=== PATIENT | female | born 1995 | race Two or more races ===

== ENCOUNTER 2021-02-25 15:28 | Outpatient (REF) | payer OTHER, SELFPAY ==
[2021-03-02 20:21] LABS: HPV mRNA E6/E7 Detected (Not Detected)
== END 2021-02-25 15:29 | disposition home or self-care (01) ==
LOC: HO.LAB 15:28
PROVIDERS: Visit Provider Internal Medicine
DX: R87.619 Unspecified abnormal cytological findings in specimens from cervix uteri (principal); Z11.51 Encounter for screening for human papillomavirus (HPV)
CPT/HCPCS: 87624; 88142

== ENCOUNTER 2021-02-27 07:01 | Outpatient (REF) | payer OTHER, SELFPAY ==
[2021-02-27 11:27] LABS: Glucose Urine UA NEG (NEG); Leukocyte Esterase Urine NEG (NEG); Nitrite Urine NEG (NEG); Urine Blood NEG (NEG); Urine Ketones NEG (NEG); Urine Protein NEG (NEG-TRACE)
[2021-02-27 11:29] LABS: Hematocrit 40.2 % (37-47); Hemoglobin 13.2 g/dl (12.0-16.0); Mean Corpuscular HGB Conc 32.8 g/dl (31.0-35.0); Mean Corpuscular Volume 88.4 fL (80-98); Mean Platelet Volume 11.3 fL (9.4-12.3); Platelet Count 198 X10*3/uL (160-400); Red Blood Count 4.55 X10*6/uL (4.20-5.50); Red Cell Distribution Width 13.1 % (11.0-16.0)
[2021-02-27 11:31] LABS: Appearance Urine CLOUDY; Color Urine YELLOW
[2021-02-27 11:42] LABS: Alanine Aminotransferase 20 U/L (0-31); Albumin Level 4.5 g/dL (3.5-5.0); Alkaline Phosphatase 89 U/L (39-117); Anion Gap 12 (12-20); Aspartate Amino Transferase 20 U/L (5-31); Bilirubin Total 0.6 mg/dL (0.0-1.0); Blood Urea Nitrogen 14 mg/dL (9-16); Calcium 9.2 mg/dL (8.4-10.2); Carbon Dioxide 23 mmol/L (22-29); Chloride 105 mmol/L (96-108); Cholesterol 163 mg/dL; Estimated Glomerular Filt Rate > 60; Glucose Fasting 87 mg/dL (60-99); HDL Cholesterol 65 mg/dL; LDL Cholesterol Calculated 90 mg/dl; Sodium 136 mmol/L (135-145); Total Protein 7.6 g/dL (6.5-8.0); Triglycerides 42 mg/dL
[2021-02-27 11:44] LABS: Amorphous Sediment Urine 4+ /LPF; RBC Urine 0 /HPF (0); Squamous Epithelial Cell Urine 3+ /LPF; WBC Urine 0 /HPF (0-4)
[2021-02-27 12:02] LABS: Syphilis Screen Nonreactive (Nonreactive)
[2021-02-27 12:03] LABS: HIV AB/AG Nonreactive (Nonreactive); HIV Num 1 0.08 S/CO (0.00-0.99)
[2021-02-27 12:04] LABS: TSH reflex Free T4 0.82 uIU/mL (0.32-4.0)
[2021-02-27 12:45] LABS: CT PCR NOT DETECTED (Not Detect.); NG PCR NOT DETECTED (Not Detect.)
== END 2021-02-27 07:02 | disposition home or self-care (01) ==
LOC: HO.HMGCLDS 07:01
PROVIDERS: PCP Internal Medicine; Visit Provider Internal Medicine
DX: Z00.00 Encounter for general adult medical examination without abnormal findings (principal); E03.9 Hypothyroidism, unspecified
CPT/HCPCS: 80053; 80061; 81001; 84443; 85027; 86780; 87389; 87491; 87591

== ENCOUNTER 2022-05-26 09:16 | Outpatient (REF) | payer OTHER, SELFPAY ==
[2022-05-26 11:30] LABS: Hematocrit 39.5 % (37.0-47.0); Hemoglobin 13.1 g/dl (12.0-16.0); Mean Corpuscular HGB Conc 33.2 g/dl (31.0-35.0); Mean Corpuscular Hemoglobin 29.8 pg (27.0-33.0); Mean Corpuscular Volume 89.8 fL (80.0-98.0); Mean Platelet Volume 10.9 fL (9.4-12.3); Platelet Count 243 X10*3/uL (160-400); Red Cell Distribution Width 12.5 % (11.0-16.0); White Blood Count 5.1 X10*3/uL (4.8-10.8)
[2022-05-26 11:43] LABS: Alanine Aminotransferase 12 U/L (0-31); Albumin Level 4.3 g/dL (3.5-5.0); Alkaline Phosphatase 83 U/L (39-117); Anion Gap 12 (12-20); Aspartate Amino Transferase 14 U/L (5-31); Bilirubin Total 0.5 mg/dL (0.0-1.0); Blood Urea Nitrogen 11 mg/dL (9-16); Calcium 9.1 mg/dL (8.4-10.2); Carbon Dioxide 23 mmol/L (22-29); Chloride 106 mmol/L (96-108); Cholesterol 165 mg/dL; Estimated Glomerular Filt Rate > 60; Glucose Fasting 92 mg/dL (60-99); HDL Cholesterol 70 mg/dL; LDL Cholesterol Calculated 86 mg/dl; Sodium 137 mmol/L (135-145); Total Protein 7.3 g/dL (6.5-8.0); Triglycerides 47 mg/dL
[2022-05-26 12:07] LABS: TSH reflex Free T4 1.44 uIU/mL (0.32-4.0)
== END 2022-05-26 09:17 | disposition home or self-care (01) ==
LOC: HO.HMGCLDS 09:16
PROVIDERS: PCP Internal Medicine; Visit Provider Internal Medicine
DX: Z00.00 Encounter for general adult medical examination without abnormal findings (principal); E03.9 Hypothyroidism, unspecified
CPT/HCPCS: 36415; 80053; 80061; 84443; 85027

== ENCOUNTER 2022-07-16 10:06 | Outpatient (REF) | payer OTHER, SELFPAY ==
[2022-07-22 13:22] LABS: HPV mRNA E6/E7 Detected (Not Detected)
== END 2022-07-16 10:07 | disposition home or self-care (01) ==
LOC: HO.LNP 10:06
PROVIDERS: Visit Provider Internal Medicine
DX: Z01.419 Encounter for gynecological examination (general) (routine) without abnormal findings (principal); Z11.51 Encounter for screening for human papillomavirus (HPV)
CPT/HCPCS: 87624; 88142

== ENCOUNTER 2022-07-16 10:06 | Outpatient (REF) | payer OTHER, SELFPAY ==
[2022-07-17 14:21] LABS: BV Int Neg Control Negative (Negative); BV Int Pos Control Positive (Positive)
== END 2022-07-16 10:07 | disposition home or self-care (01) ==
LOC: HO.LAB 10:06
PROVIDERS: Visit Provider Internal Medicine
DX: Z00.00 Encounter for general adult medical examination without abnormal findings (principal)
CPT/HCPCS: 87480; 87510; 87660

== ENCOUNTER 2023-07-20 07:56 | Outpatient (AMB) | payer OTHER, SELFPAY ==
[2023-07-20 08:10] VITALS: BP 100/64; PULSE 88; O2SAT 97; BMI 22.0
--- NOTE | 2023-07-20 08:10 | MHC.PC.OV ---
Vital Signs 07/20/23 08:10 Height 5 ft 3 in Weight 124 lb BMI 22.0 BP 100/64 Blood Pressure Location Lt brachial Position Sitting Pulse 88 Pulse Source Pulse Oximeter Pulse Oximetry (%) 97 Oxygen Delivery Method Room Air Intake Visit Reasons: PE Intake Note: Pt is here today for PE. Allergies No Known Allergies Allergy (Verified 07/20/23 08:12) Medication List - Last Reconciled 07/20/23 by Clarissa Grider MD levothyroxine 100 mcg PO DAILY metronidazole 0.75%(37.5mg/5gram) 1 appful vaginal BEDTIME 5 days Tobacco use date assessed: 07/20/23 Dental Screening Dental Screen Date: 07/20/23 Did you have a dental visit in the last 12 months?: Yes Did you have a dental problem in the last 6 months where you did not have access to dental care?: No Was dental information given to patient?: Patient has dentist HPI PE HPI Details Pt presents for PE. [facility] Medical History (Updated 07/20/23 @ 08:30 by Clarissa Grider MD) Depo-Provera contraceptive status Abnormal Pap smear of cervix Annual physical exam Hypothyroid Family History (Updated 07/20/23 @ 08:13 by Joslyn Stallworth COUNTS INCLUDE 234 BEDS AT THE [facility]) Father No problems noted. 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 1. Little interest or pleasure in doing things: more than half the days 2. Feeling down, depressed, or hopeless: more than half the days 3. Trouble falling or staying asleep, or sleeping too much: nearly every day 4. Feeling tired or having little energy: more than half the days 5. Poor appetite or overeating: not at all 6. Feeling bad about yourself - or that you are a failure or have let yourself or your family down: not at all 7. Trouble concentrating on things, such as reading the newspaper or watching television: not at all 8. Moving or speaking so slowly that other people could have noticed. Or the opposite - being so fidgety or restless that you have been moving around a lot more than usual: not at all 9. Thoughts that you would be better off or of hurting yourself in some way: not at all Total score: 9 Depression Screening Interpretation: Negative Depression Screening Done: Yes Source: Developed by Drs. Santosh Pyle, Mary Jo Escobar, Julian Centeno and colleagues, with an educational to from [employer]. Thrive Questionnaire Date Thrive assessed: 07/20/23 I am a: Patient What is your living situation today?: I have a steady place to live Within the past 12 months, did the food you bought not last and you didn't have the money to get more?: Never true Within the past 12 months, did you worry whether your food would run out before you got money to buy more?: Never true Do you have trouble paying for medicines?: No Do you have trouble getting transportation to medical appointments?: No Do you have trouble paying your heating and electricity bill?: No Do you have trouble taking care of your child, family member or friend?: No Do you have trouble with day-to-day activities such as bathing, preparing meals, shopping, managing finances, etc.?: No Are you currently unemployed and looking for a job?: No Are you interested in more education?: No Please select the resources that you would like help with: None Currently or been in a relationship where the following occur: no concerns reported AUDIT C Alcohol Use Questionnaire (AUDIT-C) 1. How often do you have a drink containing alcohol?: Never 3. How often do you have six or more drinks on one occasion?: Never Total Score: 0 MELE-7 AMB Questionnaire MELE-7 Date MELE - 7 assessed: 07/20/23 Feeling nervous, anxious, or on edge: 2 = More than half the days Not being able to stop or control worryin = More than half the days Worrying too much about different things: 2 = More than half the days Trouble relaxin = More than half the days Being so restless that it is hard to sit still: 2 = More than half the days Becoming easily annoyed or irritable: 2 = More than half the days Feeling afraid as if something awful might happen: 0 = Not at all Total MELE-7 score (0-4 normal; 5-9 mild; 10-14 moderate; 15-21 severe): 12 Source: Developed by Drs. Santosh Pyle, Mary Jo Escobar, Julian Centeno and colleagues, with an educational to from [employer]. Review of Systems Const All systems reviewed & are unremarkable except as noted in HPI and below Reports no additional complaints Eyes Reports no additional complaints ENT Reports no additional complaints Card Reports no additional complaints Resp Reports no additional complaints GI Reports no additional complaints Reports no additional complaints Physical exam (Primary Care) Vital Signs: Last Vital Signs Pulse 88 07/20/23 08:10 BP 100/64 07/20/23 08:10 Pulse Ox 97 07/20/23 08:10 Oxygen Delivery Method Room Air 07/20/23 08:10 BMI result Body Mass Index 22.0 Tobacco/Smoking Status: Tobacco use Status Tobacco use date assessed 07/20/23 07/20/23 08:15 Patient Tobacco Use Status Never used Tobacco 07/20/23 08:15 e-Cigarette/Vaping Use Never Used 07/20/23 08:15 PHQ-9: PHQ-9 Score PHQ-9: Total score 9 07/20/23 08:17 Depression Screening Interpretation: Negative Thrive Assessment: Date of Thrive Assessment Date Thrive assessed 07/20/23 07/20/23 08:17 Currently or been in a relationship where the following occur: no concerns reported Const General: no acute distress HENMT Head: Yes normal to inspection Ears: hearing grossly normal bilaterally Face and sinus: Yes normal facial exam Eyes General: appearance normal, both eyes and all related structures Neck Neck: Yes no lymphadenopathy and Yes supple Resp Effort & Inspection: normal respiratory effort Auscultation: clear to auscultation bilaterally Cardio Rhythm: regular rhythm Heart sounds: S1 normal heart sound present and S2 normal heart sound present GI Inspection: Yes normal to inspection Palpation (GI): Soft to palpation Percussion: Yes normal to percussion Auscultation: normal bowel sounds Assessment and Plan Assessment & Plan (1) Anxiety and depression: Code(s): F41.9 - Anxiety disorder, unspecified; F32.A - Depression, unspecified Plan: Pt will schedule psychotherapy. Stress management discussed. She is not interested in meds (2) Abnormal Pap smear of cervix: Comment: ASCUS 06/2019, pap negative but HPV + 03/06, Code(s): R87.619 - Unspecified abnormal cytological findings in specimens from cervix uteri Plan: refer to drier take off tender EVONNE (3) Annual physical exam: Code(s): Z00.00 - Encounter for general adult medical examination without abnormal findings Plan: WELL-BALANCED DIET REGULAR PHYSICAL ACTIVITY DISCUSSED WITH THE PATIENT. SHE WILL RETURN FOR FASTING BLOOD WORK INCLUDING TSH Orders: Orders Comprehensive Parker. Panel Fast Today Z00.00 - Encounter for general adult medical examination without abnormal findings Lipid Panel Today Z00.00 - Encounter for general adult medical examination without abnormal findings Complete Blood Count Auto Diff Today Z00.00 - Encounter for general adult medical examination without abnormal findings TSH reflex Free T4 Today Z00.00 - Encounter for general adult medical examination without abnormal findings Referrals Counseling Referral F32.A - Depression, unspecified, F41.9 - Anxiety disorder, unspecified [place] Referral R87.619 - Unspecified abnormal cytological findings in specimens from cervix uteri Medications: Refilled levothyroxine 100 mcg PO DAILY 90 tabs 3RF Coding Level of Care Code Est Pt Prev Care 18-39y(46782) Diagnoses Anxiety and depression F41.9; F32.A Abnormal Pap smear of cervix R87.619 Annual physical exam Z00.00
== END 2023-07-20 09:47 | disposition home or self-care (01) ==
PROVIDERS: Visit Provider Internal Medicine
DX: F41.9 Anxiety disorder, unspecified (principal); F32.A Depression, unspecified; R87.619 Unspecified abnormal cytological findings in specimens from cervix uteri; Z00.00 Encounter for general adult medical examination without abnormal findings
CPT/HCPCS: 99395

== ENCOUNTER 2023-07-20 08:41 | Outpatient (REF) | payer OTHER, SELFPAY ==
[2023-07-20 11:21] LABS: MANUAL DIFF FLAG NO
[2023-07-20 11:40] LABS: Basophils Percent Auto 0.8 % (0-2); Eosinophils Absolute Auto 0.2 X10*3/uL (0.0-0.4); Eosinophils Percent Auto 3.6 % (0-4); Hematocrit 39.2 % (37.0-47.0); Hemoglobin 12.8 g/dl (12.0-16.0); Imm Gran Abs Auto 0.01 X10*3/uL (0.00-0.03); Imm Gran Pct Auto 0.2 % (0.0-0.4); Lymphocytes Absolute Auto 1.8 X10*3/uL (1.2-4.9); Lymphocytes Percent Auto 36.3 % (20-40); Mean Corpuscular HGB Conc 32.7 g/dl (31.0-35.0); Mean Corpuscular Volume 88.7 fL (80.0-98.0); Mean Platelet Volume 10.9 fL (9.4-12.3); Monocytes Absolute Auto 0.5 X10*3/uL (0.1-1.2); Monocytes Percent Auto 9.4 % (2-11); Neutrophils Absolute Auto 2.5 x10*3/uL (2.0-8.3); Neutrophils Percent Auto 49.7 % (45-73); Platelet Count 226 X10*3/uL (160-400); Red Blood Count 4.42 X10*6/uL (4.20-5.50); Red Cell Distribution Width 12.6 % (11.0-16.0)
[2023-07-20 12:06] LABS: Alanine Aminotransferase 13 U/L (0-31); Albumin Level 4.3 g/dL (3.5-5.0); Alkaline Phosphatase 66 U/L (39-117); Anion Gap 12 (12-20); Aspartate Amino Transferase 17 U/L (5-31); Bilirubin Total 0.3 mg/dL (0.0-1.0); Blood Urea Nitrogen 12 mg/dL (9-16); Calcium 9.1 mg/dL (8.4-10.2); Carbon Dioxide 24 mmol/L (22-29); Chloride 108 mmol/L (96-108); Cholesterol 163 mg/dL (<200); Estimated Glomerular Filt Rate > 60; Glucose Fasting 87 mg/dL (60-99); HDL Cholesterol 62 mg/dL (>40); LDL Cholesterol Calculated 92 mg/dL (<100); Potassium 3.9 mmol/L (3.3-5.1); Sodium 140 mmol/L (135-145); Total Protein 7.5 g/dL (6.5-8.0); Triglycerides 45 mg/dL (<150)
[2023-07-20 12:10] LABS: TSH reflex Free T4 2.58 uIU/mL (0.32-4.0)
== END 2023-07-20 08:42 | disposition home or self-care (01) ==
LOC: HO.HMGCLDS 08:41
PROVIDERS: PCP Internal Medicine; Visit Provider Internal Medicine
DX: Z00.00 Encounter for general adult medical examination without abnormal findings (principal)
CPT/HCPCS: 36415; 80053; 80061; 84443; 85025

== ENCOUNTER 2023-08-25 12:34 | Outpatient (AMB) | payer OTHER, SELFPAY ==
[2023-08-25 12:46] VITALS: BP 104/66; PULSE 89; O2SAT 95; BMI 22.3
--- NOTE | 2023-08-25 12:46 | MHC.PC.OV ---
Vital Signs 08/25/23 12:46 Height 5 ft 3 in Weight 126 lb BMI 22.3 BP 104/66 Blood Pressure Location Lt brachial Position Sitting Pulse 89 Pulse Source Pulse Oximeter Pulse Oximetry (%) 95 Oxygen Delivery Method Room Air Intake Visit Reasons: Motion sickness Intake Note: Pt is here today for a a sick visit. Pt c/o motion sickness feeling last weekend. Pt states that she was feeling dizzy out of balance. Allergies No Known Allergies Allergy (Verified 08/25/23 12:49) Tobacco use date assessed: 07/20/23 HPI Motion sickness HPI Details Pt had an episode of positional vertigo, nausea, vomiting, diarrhea for 3 days a few days ago and recovered completely. [facility] Medical History (Updated 08/25/23 @ 15:28 by Clarissa Grider MD) Depo-Provera contraceptive status Abnormal Pap smear of cervix Annual physical exam Hypothyroid Family History (Updated 07/20/23 @ 08:13 by Joslyn Stallworth [facility]) Father No problems noted. 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 Santosh Pyle, Mary Jo Escobar, Julian Centeno and colleagues, with an educational to from [employer]. Review of Systems Const All systems reviewed & are unremarkable except as noted in HPI and below Reports no additional complaints Eyes Reports no additional complaints ENT Reports no additional complaints Card Reports no additional complaints Resp Reports no additional complaints GI Reports no additional complaints Physical exam (Primary Care) Vital Signs: Last Vital Signs Pulse 89 08/25/23 12:46 BP 104/66 08/25/23 12:46 Pulse Ox 95 08/25/23 12:46 Oxygen Delivery Method Room Air 08/25/23 12:46 BMI result Body Mass Index 22.3 Tobacco/Smoking Status: Tobacco use Status Tobacco use date assessed 07/20/23 08/25/23 12:49 Patient Tobacco Use Status Never used Tobacco 08/25/23 12:49 e-Cigarette/Vaping Use Never Used 08/25/23 12:49 Thrive Assessment: Date of Thrive Assessment Date Thrive assessed 07/20/23 08/25/23 12:49 Const General: no acute distress HENMT Head: Yes normal to inspection Ears: hearing grossly normal bilaterally and TM's normal bilaterally General nose exam: Normal external nose present Face and sinus: Yes normal facial exam Mouth: Normal oral and palatal mucosa present Neck Neck: Yes no lymphadenopathy and Yes supple Resp Effort & Inspection: normal respiratory effort Auscultation: clear to auscultation bilaterally Cardio Rhythm: regular rhythm Heart sounds: S1 normal heart sound present and S2 normal heart sound present Assessment and Plan Assessment & Plan (1) Vertigo: Code(s): R42 - Dizziness and giddiness Plan: resolved Orders: Orders Bacterial Vaginosis Panel Today N76.0 - Acute vaginitis Coding Level of Care Code Est Pt Level 3 (20349) Diagnoses Vertigo R42
== END 2023-08-25 14:02 | disposition home or self-care (01) ==
PROVIDERS: PCP Internal Medicine; Visit Provider Internal Medicine
DX: R42 Dizziness and giddiness (principal)
CPT/HCPCS: 99213

== ENCOUNTER 2023-08-25 16:28 | Outpatient (REF) | payer OTHER, SELFPAY ==
[2023-08-26 13:13] LABS: BV Int Neg Control Negative (Negative); BV Int Pos Control Positive (Positive)
== END 2023-08-25 16:29 | disposition home or self-care (01) ==
LOC: HO.LNP 16:28
PROVIDERS: Visit Provider Internal Medicine
DX: N76.0 Acute vaginitis (principal)
CPT/HCPCS: 87480; 87510; 87660

== ENCOUNTER 2023-10-19 12:39 | Outpatient (REF) | payer OTHER, SELFPAY ==
[2023-11-02 02:34] LABS: HPV 16 RNA NOT DETECTED (NOT DETECTED); HPV mRNA E6/E7 rflx Detected (Not Detected)
== END 2023-10-19 12:40 | disposition home or self-care (01) ==
LOC: HO.LNP 12:39
PROVIDERS: PCP Internal Medicine; Visit Provider Obstetrics & Gynecology
DX: R87.619 Unspecified abnormal cytological findings in specimens from cervix uteri (principal); B97.7 Papillomavirus as the cause of diseases classified elsewhere; Z32.02 Encounter for pregnancy test, result negative
CPT/HCPCS: 57454; 81025; 87624; 87625; 88142; 99202

== ENCOUNTER 2023-10-19 12:39 | Outpatient (AMB) | payer OTHER, SELFPAY ==
--- NOTE | 2023-10-19 12:41 | MHC.OFFVIS ---
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 03/06 Pap she was negative/HPV E6/E7 positive, no HPV 16/18 or 45, repeat cervical screening on 08/07 , Pap smear negative/HPV E6/E7 was positive , no HPV 16 18 or 45 done. [facility] Medical History Depo-Provera contraceptive status Abnormal Pap smear of cervix Annual physical exam Hypothyroid Family History Father No problems noted. 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 Alcohol intake: current Alcohol intake frequency: does not drink Patient Tobacco Use Status: Never used Tobacco e-Cigarette/Vaping Use: Never Used Current occupational status: employed Sexual orientation: Straight/Heterosexual Gender identity: Female Cognitive needs: No Hearing needs: No Vision needs: Yes Female Reproductive History Menstrual Duration of menses: 3-5 days Date of last menstrual period: 10/05/23 control method: none Total pregnancies: 0 Date of last pap smear: 07/16/22 (+HPV) History of abnormal pap smear: Yes (03/06 +HPV) Review of Systems Const All systems reviewed & are unremarkable except as noted in HPI and below Physical Exam General: Yes no CVA tenderness External Female Exam: normal external appearance and normal appearance of the urethra Speculum Exam - Vagina: normal appearance of the vagina, normal palpation, no lesions and no masses Speculum Exam - Cervix: normal appearance of the cervix, normal palpation, no lesions, no masses and nontender Bimanual exam- vagina & uterus: normal bimanual exam, normal palpation, uterine size normal, normal palpation, uterine shape normal, No Cervical tenderness present and non-tender Bimanual Exam- Adnexa, other: normal adnexae Back/Spine/Pelvis Back: no CVA tenderness Office Procedures Colposcopy Before the procedure was started discussed with the patient the procedure, alternatives & all the risks associated with the procedure (bleeding, infection, injury to vagina, bladder, vessels, possible need for transfusion with all its risks) then patient signed the consent Pap smear = negative/HPV positive Urine test done in the office was negative Speculum inserted, acetic acid used Colposcopy done Transformation zone seen, acetowhite lesions identified at 4+8+11+12+1 o?clock, cervical biopsies taken from 4+8+11+12+1 o?clock, ECC done afterwards. Vaginoscopy of the upper vagina showed no evidence of any aceto-white lesions Monsel solution used for hemostasis. The patient tolerated well . At the end the patient was instructed to call if temp>100.4, abdominal pain, n/v, bleeding; The patient was given the following instructions: nothing per vagina, no intercourse or bath tub use. All questions answered the patient verbalized understanding. Instructed the patient to make an appointment in 2 weeks for follow-up This note was generated with a voice recognition program. Some errors may have been overlooked during the review of this note. Sometimes these errors may affect the content or meaning of a given sentence. [id number] of cervix including upper vagina with biopsy and ECC Procedure code (CPT) selection complete Assessment & Plan Assessment & Plan (1) HPV in female: Code(s): B97.7 - Papillomavirus as the cause of diseases classified elsewhere Plan: Discussed with the patient the result of her cervical and screening, its significance, risk of progression, persistence, and regression. the false positive/negative rate being a screening test, recommended repeat Pap with reflex HPV in addition to colposcopy, biopsy, endocervical curettage. The patient verbalized understanding and agreed with the plan, all questions answered. Colposcopy done, see procedure note. Orders: Orders AMB Colposcopy Today B97.7 - Papillomavirus as the cause of diseases classified elsewhere Coding Level of Care Code New Pt Level 3 (48835) Procedure Only Diagnoses HPV in female B97.7 CPT Codes Colposcopy - CPT: 95124-Jcbgqjjoy of cervix including upper vagina with biopsy and ECC ([id number])
[2023-10-19 12:42] VITALS: BP 94/58; BMI 22.5
== END 2023-10-19 13:14 | disposition home or self-care (01) ==
LOC: HO.HWS 12:39
PROVIDERS: PCP Internal Medicine; Visit Provider Obstetrics & Gynecology
DX: R87.810 Cervical high risk human papillomavirus (HPV) DNA test positive (principal); Z32.02 Encounter for pregnancy test, result negative
CPT/HCPCS: 57454; 99203

== ENCOUNTER 2023-10-19 13:36 | Outpatient (REF) | payer OTHER, SELFPAY | END 2023-10-19 13:37 | disposition home or self-care (01) | LOC: HO.LAB 13:36 | PROVIDERS: Visit Provider Obstetrics & Gynecology | DX: R87.619 Unspecified abnormal cytological findings in specimens from cervix uteri (principal); B97.7 Papillomavirus as the cause of diseases classified elsewhere; Z32.02 Encounter for pregnancy test, result negative | CPT/HCPCS: 88305; 88341; 88342; 88360 ==

== ENCOUNTER 2023-11-07 10:20 | Outpatient (AMB) | payer OTHER, SELFPAY ==
--- NOTE | 2023-11-07 10:27 | A.OFFVIS_ITS ---
Intake Vital Signs 11/07/23 10:29 Height 5 ft 3 in Weight 125 lb 10.616 oz BMI 22.3 BP 102/60 Intake Visit Reasons: Colpo follow up Allergies No Known Allergies Allergy (Verified 10/19/23 12:42) HPI HPI Comments History of Present Illness Details Presenting post colpo for follow-up. The patient is doing well with no complaints. The pathology showed the following: A. Cervix, 1:00, biopsy: Squamous and endocervical glandular mucosa with inflammation; negative for dysplasia. B. Cervix, 4:00, biopsy: Endocervical glandular mucosa with marked inflammation and minute focus of squamous metaplasia; negative for dysplasia. C. Cervix, 8:00, biopsy: Squamous and endocervical glandular mucosa with inflammation and focal atypical squamous epithelium, suspicious for dysplasia (see comment). D. Cervix, 11:00, biopsy: Endocervical glandular mucosa with inflammation; negative for dysplasia; no squamous component present. E. Cervix, 12:00, biopsy: Endocervical glandular mucosa with inflammation and atypical squamous metaplasia, suspicious for dysplasia (see comment). F. Endocervix, curettage: Endocervical glandular and squamous epithelium; negative for dysplasia. Comment: The atypical epithelium is suspicious for a high-grade/moderate dysplasia and follow-up is necessary. The atypical epithelium is similar to the atypical cells seen in the concurrent Pap test (CY24-24) [facility] Medical History Depo-Provera contraceptive status Abnormal Pap smear of cervix Annual physical exam Hypothyroid Family History Father No problems noted. 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 Alcohol intake: current Alcohol intake frequency: does not drink Patient Tobacco Use Status: Never used Tobacco e-Cigarette/Vaping Use: Never Used Current occupational status: employed Sexual orientation: Straight/Heterosexual Gender identity: Female Cognitive needs: No Hearing needs: No Vision needs: Yes Female Reproductive History Menstrual Date of last menstrual period: 11/01/23 Review of Systems Const All systems reviewed & are unremarkable except as noted in HPI and below Reports as per HPI and Reports no additional complaints GI Reports no additional complaints Reports no additional complaints Physical Exam Vital Signs: Last Vital Signs BP 102/60 11/07/23 10:29 BMI result Body Mass Index 22.3 Assessment & Plan Assessment & Plan (1) MARGARET II (cervical intraepithelial neoplasia II): Code(s): N87.1 - Moderate cervical dysplasia Plan: Discussed with the patient the pathology results of the colposcopy biopsies ( 08:00 o'clock biopsy suspicious for moderate dysplasia-MARGARET 2), negative ECC. Discussed with the patient the sensitivity specificity, positive and negative predictive value in detecting cervical cancer in addition discussed the regression, persistence and progression rates. Addition discussed with the patient the risk of progression to cancer and impact of excision procedure on her future . Per ASCCP guidelines, 2 options of management were discussed with the patient including either observation with HPV based screening and colposcopy biopsy at 6 months and 12 months versus a diagnostic excisional procedures, which is the preferred method of management. The patient is concerned more about the excisional procedure impact on her future than the risk of progression of MARGARET 2 to cancer and she decided to proceed with expectant management. Instructions given to the patient to schedule colposcopy biopsy and co testing in 6 months Coding Level of Care Code Est Pt Level 3 (40655) Diagnoses MARGARET II (cervical intraepithelial neoplasia II) N87.1
[2023-11-07 10:29] VITALS: BP 102/60; BMI 22.3
== END 2023-11-07 10:49 | disposition home or self-care (01) ==
PROVIDERS: PCP Internal Medicine; Visit Provider Obstetrics & Gynecology
DX: N87.1 Moderate cervical dysplasia (principal)
CPT/HCPCS: 99213

== ENCOUNTER → 2023-11-07 10:20 | Outpatient (BNVA) | payer OTHER, SELFPAY | PROVIDERS: PCP Internal Medicine; Visit Provider Obstetrics & Gynecology | DX: N87.1 Moderate cervical dysplasia (principal) | CPT/HCPCS: 99212 ==

== ENCOUNTER 2023-11-15 14:20 | Outpatient (AMB) | payer OTHER, SELFPAY ==
--- NOTE | 2023-11-15 14:27 | MHC.OFFWIV ---
Intake Vital Signs 11/15/23 14:28 Height 5 ft 3 in Weight 132 lb 8 oz BMI 23.5 BP 116/60 Blood Pressure Location Lt brachial Position Sitting Pulse 90 Pulse Source Pulse Oximeter Temp 98.5 F Temp Source Temporal Artery Scan Pulse Oximetry (%) 97 Oxygen Delivery Method Room Air Intake Visit Reasons: EST/sore throat(lobby masked) Patient Tobacco Use Status: Never used Tobacco Allergies No Known Allergies Allergy (Verified 11/15/23 14:39) Medication List - Last Reconciled 11/15/23 by CHUN New levothyroxine 100 mcg PO DAILY HPI HPI Comments History of Present Illness Details Patient is a 28-year-old female in today for a sick visit. She states that she developed upper respiratory symptoms, including cough, sore throat, headache, excessive mucus production, ear fullness for the past 20 days. She has utilized some [id number] medicine with little effect, including Mucinex and DayQuil. Patient states that she feels like when she wakes up she has mucus pooled in the back of her throat, is causing her throat to feel sore and exacerbates her cough. Denies sick contacts or recent travel. Will obtain strep and upper respiratory swab. Patient denies fever, chest pain, shortness a breath, dizziness, numbness, vomiting, diarrhea PFSH Medical History Depo-Provera contraceptive status Abnormal Pap smear of cervix Annual physical exam Hypothyroid Family History Father No problems noted. 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 Alcohol intake: current Alcohol intake frequency: does not drink Patient Tobacco Use Status: Never used Tobacco e-Cigarette/Vaping Use: Never Used Current occupational status: employed Sexual orientation: Straight/Heterosexual Gender identity: Female Cognitive needs: No Hearing needs: No Vision needs: Yes Review of Systems Const All systems reviewed & are unremarkable except as noted in HPI and below Reports chills, Reports fatigue, Denies fever(s) and Reports headache(s) Eyes Denies change in vision ENT Reports otalgia, Reports headache(s), Reports nasal discharge, Reports sinus pressure and Reports sore throat Card Denies chest pain and Denies dyspnea Resp Reports chest congestion, Reports cough and Denies dyspnea GI Denies abdominal pain Neuro Reports headache(s) Endo Reports fatigue Physical Exam Vital Signs: Last Vital Signs Temp 98.5 F 11/15/23 14:28 Pulse 90 11/15/23 14:28 BP 116/60 11/15/23 14:28 Pulse Ox 97 11/15/23 14:28 Oxygen Delivery Method Room Air 11/15/23 14:28 BMI result Body Mass Index 23.5 Const Other: Appearance: Alert.? Oriented X3.? No acute distress.? Head: Normocephalic, atraumatic. Eyes: Pupils equal, round and reactive to light. No photophobia. ? ENT: Pharynx erythema. Turbinate swelling. Right TM intact with effusion. Left TM intact erythema and effusion. Neck: Normal inspection.? Neck supple.?Full ROM. CVS: Normal heart rate and rhythm.? Pulses normal.? Respiratory: No respiratory distress.? Breath sounds normal.? Neuro: Oriented X 3.? No motor deficit.? No sensory deficit. CN 2-12 intact Results AMB Rapid Strep AMB Rapid Strep Negative Last Edit by No White CMA on 11/15/23 14:46 Results Reviewed Results Reviewed: Laboratory Last Values Strep Scn Rapid Clinic Negative 11/15/23 14:46 Will call patient with strep and upper respiratory viral swab results. Assessment & Plan Assessment & Plan (1) Otitis media of left ear: Comment: Will give patient Augmentin and prednisone to be taken as directed. Patient has been educated on signs of worsening symptoms and when to return to the walk-in or when to present to the ED. Code(s): H66.92 - Otitis media, unspecified, left ear Qualifiers: Otitis media type: unspecified Qualified Code(s): H66.92 - Otitis media, unspecified, left ear Plan: Take your medications as prescribed. If you were prescribed antibiotics today, it is important that you take your medication to their entirety, do not skip any doses, do not finish them early. Follow-up with your primary care provider this week. Return to the emergency department with new or worsening symptoms. Such as fevers, chills, chest pain, shortness of breath, nausea, vomiting, dizziness, headache, vision changes, lethargy In case of emergency call 911 Plan Follow-up with PCP. Orders: Orders AMB Rapid Strep Screen 11/15/23 Z13.9 - Encounter for screening, unspecified SARS-CoV2/FLU/RSV 11/15/23 J06.9 - Acute upper respiratory infection, unspecified Medications: New prednisone 20 mg PO BID 10 tabs 0RF benzocaine-menthol 15-2.6 mg (Cepacol Sore Throat (benzocaine-menthol)) 1 lynne mucous membrane Q2-4H PRN 16 ea 0RF pain amoxicillin-pot clavulanate 875-125 mg 1 tab PO Q12H 14 tabs 0RF Coding Level of Care Code Est Pt Level 3 (31801) Diagnoses Left otitis media, unspecified otitis media type H66.92 Otitis media type: unspecified Time Spent (min) 30
[2023-11-15 14:28] VITALS: BP 116/60; PULSE 90; TEMP 36.9; O2SAT 97; BMI 23.5
== END 2023-11-15 16:05 | disposition home or self-care (01) ==
PROVIDERS: PCP Internal Medicine; Visit Provider Nurse Practitioner Primary Care
DX: H66.92 Otitis media, unspecified, left ear (principal)
CPT/HCPCS: 87880; 99213

== ENCOUNTER 2023-11-15 19:02 | Outpatient (REF) | payer OTHER, SELFPAY ==
[2023-11-15 19:54] LABS: Influenza A PCR NEGATIVE (Negative); Influenza B PCR NEGATIVE (Negative); Resp Syncy Virus RNA Qual PCR NEGATIVE (Negative); SARS COV2 PCR INHOUSE NEGATIVE (Negative)
== END 2023-11-15 19:03 | disposition home or self-care (01) ==
LOC: HO.HMGCLNP 19:02
PROVIDERS: Visit Provider Nurse Practitioner Primary Care
DX: J06.9 Acute upper respiratory infection, unspecified (principal); R04.2 Hemoptysis; Z11.52 Encounter for screening for COVID-19
CPT/HCPCS: 0241U

== ENCOUNTER 2024-02-15 12:11 | Outpatient (REF) | payer OTHER, SELFPAY ==
[2024-02-15 13:03] LABS: MANUAL DIFF FLAG NO
[2024-02-15 13:08] LABS: Basophils Absolute Auto 0.1 X10*3/uL (0.0-0.2); Basophils Percent Auto 0.7 % (0-2); Eosinophils Absolute Auto 0.1 X10*3/uL (0.0-0.4); Eosinophils Percent Auto 1.9 % (0-4); Hematocrit 38.3 % (37.0-47.0); Hemoglobin 12.7 g/dl (12.0-16.0); Imm Gran Abs Auto 0.03 X10*3/uL (0.00-0.03); Imm Gran Pct Auto 0.4 % (0.0-0.4); Lymphocytes Absolute Auto 2.2 X10*3/uL (1.2-4.9); Lymphocytes Percent Auto 29.7 % (20-40); Mean Corpuscular HGB Conc 33.2 g/dl (31.0-35.0); Mean Corpuscular Hemoglobin 28.9 pg (27.0-33.0); Mean Platelet Volume 11.4 fL (9.4-12.3); Monocytes Absolute Auto 0.8 X10*3/uL (0.1-1.2); Monocytes Percent Auto 11.6 % (2-11); Neutrophils Percent Auto 55.7 % (45-73); Platelet Count 202 X10*3/uL (160-400); Red Cell Distribution Width 12.6 % (11.0-16.0); White Blood Count 7.2 X10*3/uL (4.8-10.8)
[2024-02-15 13:59] LABS: Alanine Aminotransferase 16 U/L (0-31); Albumin Level 4.5 g/dL (3.5-5.0); Alkaline Phosphatase 76 U/L (39-117); Anion Gap 13 (12-20); Aspartate Amino Transferase 20 U/L (5-31); Bilirubin Total 0.3 mg/dL (0.0-1.0); Blood Urea Nitrogen 11 mg/dL (9-16); Calcium 9.5 mg/dL (8.4-10.2); Carbon Dioxide 19 mmol/L (22-29); Chloride 108 mmol/L (96-108); Estimated Glomerular Filt Rate > 60; Glucose Random 86 mg/dL (60-115); Iron 107 mcg/dL (30-160); Percent Iron Saturation 33 % (15-50); Sodium 136 mmol/L (135-145); Total Iron Binding Capacity 327 mcg/dL (228-428); Total Protein 7.9 g/dL (6.5-8.0); Unsaturated Iron Binding 220 ug/dL
[2024-02-15 14:16] LABS: Ferritin 13 ng/mL (10-122); Thyroid Stimulating Hormone 1.38 uIU/mL (0.32-4.0)
[2024-02-15 14:24] LABS: Folate 7.8 ng/mL (> or = 4.0)
== END 2024-02-15 12:12 | disposition home or self-care (01) ==
LOC: HO.HMGCLDS 12:11
PROVIDERS: PCP Internal Medicine; Visit Provider Nurse Practitioner Psychiatric/Mental Health
DX: F43.21 Adjustment disorder with depressed mood (principal); F43.10 Post-traumatic stress disorder, unspecified
CPT/HCPCS: 36415; 80053; 82728; 82746; 83540; 83735; 84443; 85025

== ENCOUNTER 2024-04-12 11:44 | Outpatient (AMB) | payer OTHER, SELFPAY ==
--- NOTE | 2024-04-12 11:58 | MHC.OFFWIV ---
Intake Vital Signs 04/12/24 12:00 Height 53 ft Weight 124 lb BMI 0.2 BP 110/72 Blood Pressure Location Rt brachial Position Sitting Pulse 81 Pulse Source Pulse Oximeter Pulse Oximetry (%) 98 Oxygen Delivery Method Room Air Intake Visit Reasons: EP ear infection lft generating down face Intake Note: Patient here for possible left ear infection and pain radiates down which has been present for a couple of weeks and is now starting to feel some discomfort in right ear. Patient Tobacco Use Status: Never used Tobacco Allergies No Known Allergies Allergy (Verified 04/12/24 12:01) Do you need a note to return to daycare/school/sports/work: No HPI HPI Comments History of Present Illness Details 28 y/o female patient who presents to walk in clinic with c/o left ear pain for couple of weeks. Reports pain on/off. Reports pain radiating down to her left Jaw. She was treated with Augmentin in Oct 2023 for similar ear infection. [facility] Medical History Depo-Provera contraceptive status Abnormal Pap smear of cervix Annual physical exam Hypothyroid Family History Father No problems noted. 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 Alcohol intake: current Alcohol intake frequency: does not drink Patient Tobacco Use Status: Never used Tobacco e-Cigarette/Vaping Use: Never Used Current occupational status: employed Sexual orientation: Straight/Heterosexual Gender identity: Female Cognitive needs: No Hearing needs: No Vision needs: Yes Review of Systems Const All systems reviewed & are unremarkable except as noted in HPI and below Physical Exam Vital Signs: Last Vital Signs Pulse 81 04/12/24 12:00 BP 110/72 04/12/24 12:00 Pulse Ox 98 04/12/24 12:00 Oxygen Delivery Method Room Air 04/12/24 12:00 BMI result Body Mass Index 0.2 Const General: comfortable and no acute distress Nutritional Appearance: well nourished Orientation/consciousness: patient oriented x3 HEENT Head: Yes normocephalic Ears: external ears normal, TM normal on the right and TM abnormal bulging on the left, wth effusion, erythematous on the left and retracted on the left General nose exam: Normal nasal mucous membranes and turbinates present Face and sinus: Yes sinuses nontender Mouth: moist mucous membranes Throat: Yes posterior oropharynx normal Resp Effort & Inspection: normal respiratory effort Auscultation: clear to auscultation bilaterally Cardio Rate: regular rate Rhythm: regular rhythm Skin General skin exam: no rashes or lesions noted Neuro General: patient oriented x3, gait normal and moves all extremities Psych Speech and movement: Normal speech and movement present Assessment & Plan Assessment & Plan (1) Otitis media of left ear: Code(s): H66.92 - Otitis media, unspecified, left ear Qualifiers: Otitis media type: unspecified Qualified Code(s): H66.92 - Otitis media, unspecified, left ear Plan: Acetaminophen for pain relief Topical Otic drops prescribed Avoid submerging head under water for the next 72 hours. Medications: New ciprofloxacin-dexamethasone 0.3-0.1 % 4 drps otic (ears) BID 10 days 7.5 mL 0RF H66.92 - Otitis media, unspecified, left ear Coding Level of Care Code Est Pt Level 3 (82389) Diagnoses Left otitis media, unspecified otitis media type H66.92 Otitis media type: unspecified Time Spent (min) 15
[2024-04-12 12:00] VITALS: BP 110/72; PULSE 81; O2SAT 98
== END 2024-04-12 12:32 | disposition home or self-care (01) ==
PROVIDERS: PCP Internal Medicine; Visit Provider Nurse Practitioner Family
DX: H66.92 Otitis media, unspecified, left ear (principal)
CPT/HCPCS: 99213

== ENCOUNTER 2024-05-07 11:49 | Outpatient (REF) | payer OTHER, SELFPAY ==
[2024-05-25 11:23] LABS: HPV mRNA E6/E7 rflx Detected (Abnormal)
[2024-05-25 11:24] LABS: HPV 16 RNA NOT DETECTED
== END 2024-05-07 11:50 | disposition home or self-care (01) ==
LOC: HO.LNP 11:49
PROVIDERS: PCP Internal Medicine; Visit Provider Obstetrics & Gynecology
DX: Z12.4 Encounter for screening for malignant neoplasm of cervix (principal); Z11.51 Encounter for screening for human papillomavirus (HPV); N87.1 Moderate cervical dysplasia; B97.7 Papillomavirus as the cause of diseases classified elsewhere
CPT/HCPCS: 57454; 81025; 87624; 87625; 88175; 88300; 88305

== ENCOUNTER 2024-05-07 11:49 | Outpatient (AMB) | payer OTHER, SELFPAY ==
[2024-05-07 12:20] VITALS: BP 90/60; BMI 21.9
--- NOTE | 2024-05-07 12:20 | MHC.OFFVIS ---
Vital Signs 05/07/24 12:20 Height 5 ft 3 in Weight 123 lb 7.342 oz BMI 21.9 BP 90/60 Intake Visit Reasons: co test/colpo/BX Snap Shearer Required: No Information Interpreted: non-clinical & clinical Precision Agriculture Technician: Precision Agriculture Technician Present (Leeanna JONES) Accompanied by: Spouse Allergies No Known Allergies Allergy (Verified 05/07/24 12:30) HPI Comments Details: Presenting for six-month co testing/colpo as part of the observation for MARGARET 2 diagnosed on colposcopy biopsy in 11/09 for ascus/HPV E6/E7 positive [facility] Medical History Depo-Provera contraceptive status Abnormal Pap smear of cervix Annual physical exam Hypothyroid Family History Father No problems noted. 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 Alcohol intake: current Alcohol intake frequency: does not drink Patient Tobacco Use Status: Never used Tobacco e-Cigarette/Vaping Use: Never Used Current occupational status: employed Sexual orientation: Straight/Heterosexual Gender identity: Female Cognitive needs: No Hearing needs: No Vision needs: Yes Female Reproductive History Menstrual Date of last menstrual period: 04/16/24 Review of Systems Const All systems reviewed & are unremarkable except as noted in HPI and below Reports as per HPI and Reports no additional complaints GI Reports no additional complaints Reports no additional complaints Physical Exam Vital Signs: BMI result Body Mass Index 21.9 Office Procedures Colposcopy Colposcopy: Pre-Procedure Counseling: Before beginning the procedure, I conducted comprehensive counseling with the patient. We thoroughly discussed the procedure itself, including its details, alternatives, and all associated risks. This included but not limited to the following complications such as bleeding, infection, and injury to the vagina, bladder, and vessels, as well as the potential need for transfusion with all its associated risks. Subsequently, the patient sign the consent. Pap smear result: MARGARET 2 by biopsy in 11/09 Urine test in office = Negative Procedure: During the procedure, the following steps were performed: A speculum was inserted, and acetic acid was applied. Colposcopy was conducted, allowing visualization of the transformation zone. Acetowhite lesions were identified at the 4+6+7+9+11+1+3 o'clock position. Cervical biopsies were obtained from the 4+6+7+9+11+1+3 o'clock position, followed by an endocervical curettage (ECC). Vaginoscopy of the upper vagina revealed no evidence of aceto-white lesions. Hemostasis was achieved using Monsel solution, and the patient tolerated the procedure well. Post-Procedure Instructions: The patient was advised to promptly contact the office or the after hours answering service or go to the emergency room if experiencing a temperature exceeding 100.4?F, abdominal pain, nausea/vomiting, or bleeding. Additionally, the patient was instructed to abstain from vaginal intercourse and bathtub use. The patient confirmed understanding of these instructions. Discharge Instructions: The patient was instructed to schedule a follow-up appointment in 2 weeks for further evaluation and management. Please note that this note was generated using a voice recognition program, and errors may have occurred during skein yarn dyer. [id number] of cervix including upper vagina with biopsy and ECC Procedure code (CPT) selection complete Assessment & Plan Assessment & Plan (1) MARGARET II (cervical intraepithelial neoplasia II): Code(s): N87.1 - Moderate cervical dysplasia Category: Medical Plan: Co testing collected and colposcopy done, see procedure note Orders: Orders AMB Colposcopy Today N87.1 - Moderate cervical dysplasia Coding Level of Care Code Est Pt Level 3 (59765) Procedure Only Diagnoses MARGARET II (cervical intraepithelial neoplasia II) N87.1 CPT Codes Colposcopy - CPT: 00261-Asdcoweia of cervix including upper vagina with biopsy and ECC ([id number])
== END 2024-05-07 13:20 | disposition home or self-care (01) ==
LOC: HO.HWS 11:49
PROVIDERS: PCP Internal Medicine; Visit Provider Obstetrics & Gynecology
DX: N87.1 Moderate cervical dysplasia (principal); Z32.02 Encounter for pregnancy test, result negative
CPT/HCPCS: 57454

== ENCOUNTER 2024-05-07 14:04 | Outpatient (AMB) | payer OTHER, SELFPAY ==
--- NOTE | 2024-05-07 14:05 | MHC.OFFWIV ---
Intake Vital Signs 05/07/24 14:07 Height 5 ft 3 in Weight 125 lb BMI 22.1 BP 108/62 Blood Pressure Location Rt brachial Position Sitting Pulse 88 Pulse Source Pulse Oximeter Temp 98.3 F Temp Source Oral Pulse Oximetry (%) 98 Oxygen Delivery Method Room Air Intake Visit Reasons: EP f/u ear infection-still throbbing Intake Note: pt here c/o LT ear pulsating. Sometimes LT ear. Ongoing. Seen in walk in 04/12 Patient Tobacco Use Status: Never used Tobacco Allergies No Known Allergies Allergy (Verified 05/07/24 14:06) Do you need a note to return to daycare/school/sports/work: No HPI HPI Comments History of Present Illness Details Patient is a 28 year old female complaining of ongoing left ear pain. She states her left ear was hurting for a few weeks and she came to the walk-in clinic on April 12, was prescribed Cipro-dexamethasone drops and she has had no improvement in her ear infection. Patient states her ear still throbbing, she denies any changes in her hearing or fevers or throat pain. [facility] Medical History Depo-Provera contraceptive status Abnormal Pap smear of cervix Annual physical exam Hypothyroid Family History Father No problems noted. 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 Alcohol intake: current Alcohol intake frequency: does not drink Patient Tobacco Use Status: Never used Tobacco e-Cigarette/Vaping Use: Never Used Current occupational status: employed Sexual orientation: Straight/Heterosexual Gender identity: Female Cognitive needs: No Hearing needs: No Vision needs: Yes Physical Exam Const General: cooperative, healthy appearing, comfortable and no acute distress Orientation/consciousness: patient oriented x3 HEENT Head: Yes normal to inspection Ears: hearing grossly normal bilaterally, external ears normal, TM normal on the right, EAC's normal, mastoids normal and TM abnormal bulging, dull, wth effusion, erythematous and with loss of landmarks General nose exam: Normal external nose present Face and sinus: Yes normal facial exam Resp Effort & Inspection: normal respiratory effort and able to speak in complete sentences Neuro General: patient oriented x3 Results AMB Test Urine AMB Test Urine Negative Last Edit by Leeanna Bob CMA on 05/07/24 12:45 Assessment & Plan Assessment & Plan (1) Otitis media of left ear: Code(s): H66.92 - Otitis media, unspecified, left ear Qualifiers: Otitis media type: unspecified Qualified Code(s): H66.92 - Otitis media, unspecified, left ear Plan: Send prescription for appropriate antibiotic for ear infection Plan See above Medications: New amoxicillin 500 mg PO BID 10 tabs 0RF Coding Level of Care Code Est Pt Level 3 (13486) Diagnoses Left otitis media, unspecified otitis media type H66.92 Otitis media type: unspecified
[2024-05-07 14:07] VITALS: BP 108/62; PULSE 88; TEMP 36.8; O2SAT 98; BMI 22.1
== END 2024-05-07 14:25 | disposition home or self-care (01) ==
PROVIDERS: PCP Internal Medicine; Visit Provider Physician Assistant
DX: H66.92 Otitis media, unspecified, left ear (principal)
CPT/HCPCS: 99213

== ENCOUNTER 2024-05-30 09:36 | Outpatient (AMB) | payer OTHER, SELFPAY ==
--- NOTE | 2024-05-30 09:37 | MHC.OFFWIV ---
Intake Vital Signs 05/30/24 09:39 Height 5 ft 3 in Weight 124 lb BMI 22.0 BP 104/68 Blood Pressure Location Rt brachial Position Sitting Pulse 91 Pulse Source Pulse Oximeter Temp 98.3 F Temp Source Oral Pulse Oximetry (%) 99 Oxygen Delivery Method Room Air Intake Visit Reasons: Dizziness, and Nausea Intake Note: pt c/o dizziness and nausea. Started 2 days ago. Would like test Patient Tobacco Use Status: Never used Tobacco Allergies No Known Allergies Allergy (Verified 05/30/24 09:37) Do you need a note to return to daycare/school/sports/work: No HPI Dizziness, and Nausea HPI Details This note is constructed using voice recognition software. While every effort has been made to ensure accuracy, airplane pilot photogrammetry errors may have been included. The patient is a 28 year old female who presents to the clinic today with mild dizziness since having an ear infection two weeks ago. She completed her antibiotics, and the ear pain has since resolved. She has some mild nausea when she is dizzy. She reports she is not preventing , and would not be upset if she were , so requested test. The dizziness is present with head motion and minimal with rapid resolution of symptoms without treatment. [facility] Medical History (Updated 05/30/24 @ 09:46 by Bk Crews CMA) Encounter for screening Depo-Provera contraceptive status Abnormal Pap smear of cervix Annual physical exam Hypothyroid Family History Father No problems noted. 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 Alcohol intake: current Alcohol intake frequency: does not drink Patient Tobacco Use Status: Never used Tobacco e-Cigarette/Vaping Use: Never Used Current occupational status: employed Sexual orientation: Straight/Heterosexual Gender identity: Female Cognitive needs: No Hearing needs: No Vision needs: Yes Review of Systems Const All systems reviewed & are unremarkable except as noted in HPI and below Physical Exam Vital Signs: Last Vital Signs Temp 98.3 F 05/30/24 09:39 Pulse 91 05/30/24 09:39 BP 104/68 05/30/24 09:39 Pulse Ox 99 05/30/24 09:39 Oxygen Delivery Method Room Air 05/30/24 09:39 BMI result Body Mass Index 22.0 Const General: cooperative, healthy appearing, comfortable and no acute distress Orientation/consciousness: patient oriented x3 Limitations: no limitations HEENT Head: Yes normal to inspection Ears: hearing grossly normal bilaterally, external ears normal and TM's normal bilaterally General nose exam: Normal external nose present, Normal nares present and No nasal discharge present Face and sinus: Yes normal facial exam and Yes sinuses nontender Mouth: Normal oral and palatal mucosa present and moist mucous membranes Throat: Yes posterior oropharynx normal, Yes tonsils normal and Yes uvula midline Eyes Other: Horizontal nystagnus present. General: appearance normal, both eyes and all related structures Neck Neck: Yes normal visual inspection Resp Effort & Inspection: normal respiratory effort, able to speak in complete sentences, Actively coughing, no respiratory distress, not tachypneic, no tripod positioning and no use of accessory muscles Auscultation: clear to auscultation bilaterally Cardio Jugular venous distension: no JVD Rate: regular rate Rhythm: regular rhythm Heart sounds: S1 normal heart sound present, S2 normal heart sound present, no click, no gallops, no murmurs and no rubs Skin General skin exam: no rashes or lesions noted, elasticity normal and turgor normal Neuro General: patient oriented x3 Extrem General: Yes normal to inspection and Yes no clubbing, cyanosis or edema Results AMB Test Urine AMB Test Urine Negative Last Edit by Bk Crews CMA on 05/30/24 09:54 Results Reviewed Results Reviewed: Laboratory Last Values Tst Clinic Negative 05/30/24 09:46 Assessment & Plan Assessment & Plan (1) BPPV (benign paroxysmal positional vertigo): Code(s): H81.10 - Benign paroxysmal vertigo, unspecified ear Qualifiers: Laterality: unspecified laterality Qualified Code(s): H81.10 - Benign paroxysmal vertigo, unspecified ear Plan: Prescription for meclizine provided for p.r.n. use for symptomatic management. Advised patient to increase hydration. Symptoms should resolve over the course of the next several days given resolution of infection. Plan See above for full details and plan. Additionally given patient is not preventing , I advised her to start a vitamin, and discuss with her primary care provider. Orders: Orders AMB HCG Urine Test Today Z13.9 - Encounter for screening, unspecified Medications: New meclizine 12.5 mg PO TID 3 days PRN 9 tabs 0RF dizziness Coding Level of Care Code Est Pt Level 3 (75689) Diagnoses Benign paroxysmal positional vertigo, unspecified laterality H81.10 Laterality: unspecified laterality
[2024-05-30 09:39] VITALS: BP 104/68; PULSE 91; TEMP 36.8; O2SAT 99; BMI 22.0
== END 2024-05-30 10:08 | disposition home or self-care (01) ==
PROVIDERS: PCP Internal Medicine; Visit Provider Registered Nurse
DX: Z13.9 Encounter for screening, unspecified (principal); H81.10 Benign paroxysmal vertigo, unspecified ear
CPT/HCPCS: 81025; 99213

== ENCOUNTER 2024-06-25 15:20 | Outpatient (AMB) | payer OTHER, SELFPAY ==
--- NOTE | 2024-06-25 15:24 | MHC.OFFVIS ---
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 The patient is doing well with no complaints. The pathology showed the following: A. Endocervix, curettage: No tissue present. B. Cervix, 1 o'clock, biopsy: Inflamed endocervical mucosa, otherwise within normal limits; no squamous epithelium identified. C. Cervix, 3 o'clock, biopsy: Inflamed cervical transformation zone mucosa with reactive changes. D. Cervix, 4 o'clock, biopsy: Scant inflamed endocervical mucosa, otherwise within normal limits; no squamous epithelium identified. E. Cervix, 6 o'clock, biopsy: Inflamed endocervical mucosa, otherwise within normal limits; no squamous epithelium identified. F. Cervix, 7 o'clock, biopsy: Inflamed cervical transformation zone mucosa with reactive changes. G. Cervix, 9 o'clock, Inflamed endocervical mucosa, otherwise within normal limits; no squamous epithelium identified. biopsy: H. Cervix, 11 o'clock, biopsy: Inflamed endocervical mucosa, otherwise within normal limits; no squamous epithelium identified. [facility] Medical History (Updated 06/25/24 @ 15:35 by Jeremy Magaña MD) Encounter for screening Depo-Provera contraceptive status Abnormal Pap smear of cervix Annual physical exam Hypothyroid Family History Father No problems noted. 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 Alcohol intake: current Alcohol intake frequency: does not drink Patient Tobacco Use Status: Never used Tobacco e-Cigarette/Vaping Use: Never Used Current occupational status: employed Sexual orientation: Straight/Heterosexual Gender identity: Female Cognitive needs: No Hearing needs: No Vision needs: Yes Review of Systems Const All systems reviewed & are unremarkable except as noted in HPI and below Reports as per HPI and Reports no additional complaints GI Reports no additional complaints Reports no additional complaints Physical Exam Vital Signs: BMI result Body Mass Index 21.9 Assessment & Plan Assessment & Plan (1) ASCUS with positive high risk HPV cervical: Comment: Colpo biopsy in 11/07 suspicious for high-grade Code(s): R87.610 - Atypical squamous cells of undetermined significance on cytologic smear of cervix (ASC-US); R87.810 - Cervical high risk human papillomavirus (HPV) DNA test positive Category: Medical Plan: Discussed with the patient the pathology results of the colposcopy biopsies & endocervical curettage (negative). Discussed with the patient the sensitivity specificity, positive and negative predictive value in detecting cervical cancer in addition discussed the regression, persistence and progression rates. Recommended co-testing/colpo in six-months months. Instructions given to the patient to schedule a co test/colpo appointment in six-months. All questions answered the patient verbalized understanding. Coding Level of Care Code Est Pt Level 3 (07892) Diagnoses ASCUS with positive high risk HPV cervical R87.610; R87.810
[2024-06-25 15:25] VITALS: BMI 21.9
== END 2024-06-25 15:40 | disposition home or self-care (01) ==
LOC: HO.HWS 15:20
PROVIDERS: PCP Internal Medicine; Visit Provider Obstetrics & Gynecology
DX: R87.610 Atypical squamous cells of undetermined significance on cytologic smear of cervix (ASC-US) (principal); R87.810 Cervical high risk human papillomavirus (HPV) DNA test positive
CPT/HCPCS: 99213

== ENCOUNTER → 2024-06-25 15:20 | Outpatient (BNVA) | payer OTHER, SELFPAY | PROVIDERS: PCP Internal Medicine; Visit Provider Obstetrics & Gynecology | DX: R87.610 Atypical squamous cells of undetermined significance on cytologic smear of cervix (ASC-US) (principal); R87.810 Cervical high risk human papillomavirus (HPV) DNA test positive | CPT/HCPCS: 99212 ==

== ENCOUNTER 2024-08-01 13:00 | Outpatient (AMB) | payer OTHER, SELFPAY ==
[2024-08-01 13:05] VITALS: BP 102/64; PULSE 78; O2SAT 100; BMI 22.1
--- NOTE | 2024-08-01 13:05 | A.OFFPC_ITS ---
Vital Signs 08/01/24 13:05 Height 5 ft 3 in Weight 125 lb BMI 22.1 BP 102/64 Blood Pressure Location Rt brachial Position Sitting Pulse 78 Pulse Source Pulse Oximeter Pulse Oximetry (%) 100 Oxygen Delivery Method Room Air Intake Visit Reasons: Annual PE Intake Note: Pt is here today for PE. Allergies No Known Allergies Allergy (Verified 08/01/24 13:07) Medication List - Last Reconciled 08/01/24 by Clarissa Grider MD bupropion HCl SR 100 mg PO QAM levothyroxine 100 mcg PO DAILY 30 days meclizine 12.5 mg PO TID PRN 3 days sertraline 50 mg PO QAM trazodone mg PO BEDTIME Tobacco use date assessed: 08/01/24 Dental Screening Dental Screen Date: 08/01/24 Did you have a dental visit in the last 12 months?: Yes Did you have a dental problem in the last 6 months where you did not have access to dental care?: No Was dental information given to patient?: Patient has dentist HPI Annual PE HPI Details Pt presents for PE. PFSH Medical History Encounter for screening Depo-Provera contraceptive status Abnormal Pap smear of cervix Annual physical exam Hypothyroid Family History Father No problems noted. 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 1. Little interest or pleasure in doing things: not at all 2. Feeling down, depressed, or hopeless: several days 3. Trouble falling or staying asleep, or sleeping too much: several days 4. Feeling tired or having little energy: several days 5. Poor appetite or overeating: several days 6. Feeling bad about yourself - or that you are a failure or have let yourself or your family down: several days 7. Trouble concentrating on things, such as reading the newspaper or watching television: several days 8. Moving or speaking so slowly that other people could have noticed. Or the opposite - being so fidgety or restless that you have been moving around a lot more than usual: several days 9. Thoughts that you would be better off or of hurting yourself in some way: not at all Total score: 7 Depression Screening Interpretation: Negative Depression Screening Done: Yes [id number] - PHQ-9 Billing: Yes Source: Developed by Drs. Santosh Pyle, Mary Jo Escobar, Julian Centeno and colleagues, with an educational to from [employer]. Thrive Questionnaire Date Thrive assessed: 08/01/24 I am a: Patient What is your living situation today?: I have a steady place to live Within the past 12 months, did the food you bought not last and you didn't have the money to get more?: Never true Within the past 12 months, did you worry whether your food would run out before you got money to buy more?: Never true Do you have trouble paying for medicines?: No Do you have trouble getting transportation to medical appointments?: No Do you have trouble paying your heating and electricity bill?: No Do you have trouble taking care of your child, family member or friend?: Yes Do you have trouble with day-to-day activities such as bathing, preparing meals, shopping, managing finances, etc.?: No Are you currently unemployed and looking for a job?: No Are you interested in more education?: No Please select the resources that you would like help with: None Currently or been in a relationship where the following occur: No concerns reported THRIVE Score: 0 AUDIT C Alcohol Use Questionnaire (AUDIT-C) 1. How often do you have a drink containing alcohol?: Never 3. How often do you have six or more drinks on one occasion?: Never Total Score: 0 MELE-7 AMB Questionnaire MELE-7 Date MELE - 7 assessed: 08/01/24 Feeling nervous, anxious, or on edge: 1 = Several days Not being able to stop or control worryin = Several days Worrying too much about different things: 1 = Several days Trouble relaxin = Several days Being so restless that it is hard to sit still: 1 = Several days Becoming easily annoyed or irritable: 1 = Several days Feeling afraid as if something awful might happen: 0 = Not at all Total MELE-7 score (0-4 normal; 5-9 mild; 10-14 moderate; 15-21 severe): 6 Source: Developed by Drs. Santosh Pyle, Mary Jo Escobar, Julian Centeno and colleagues, with an educational to from [employer]. MELE-7 Assessment Billing MELE-7 Assessment Tool: MELE-7 Assessment 03080 Review of Systems Const All systems reviewed & are unremarkable except as noted in HPI and below Eyes Reports no additional complaints ENT Reports no additional complaints Card Reports no additional complaints Resp Reports no additional complaints GI Reports no additional complaints Reports no additional complaints Physical exam (Primary Care) Vital Signs: Last Vital Signs Pulse 78 08/01/24 13:05 BP 102/64 08/01/24 13:05 Pulse Ox 100 08/01/24 13:05 Oxygen Delivery Method Room Air 08/01/24 13:05 BMI result Body Mass Index 22.1 Tobacco/Smoking Status: Tobacco use Status Tobacco use date assessed 08/01/24 08/01/24 13:08 Patient Tobacco Use Status Never used Tobacco 08/01/24 13:08 e-Cigarette/Vaping Use Never Used 08/01/24 13:05 PHQ-9: PHQ-9 Score PHQ-9: Total score 7 08/01/24 13:22 Depression Screening Interpretation: Negative Thrive Assessment: Date of Thrive Assessment Date Thrive assessed 08/01/24 08/01/24 13:05 Currently or been in a relationship where the following occur: No concerns reported Const General: no acute distress HENMT Head: Yes normal to inspection Ears: hearing grossly normal bilaterally General nose exam: Normal external nose present Mouth: Normal oral and palatal mucosa present Throat: Yes posterior oropharynx normal Eyes General: appearance normal, both eyes and all related structures Neck Neck: Yes no lymphadenopathy and Yes supple Resp Effort & Inspection: normal respiratory effort Auscultation: clear to auscultation bilaterally Cardio Rhythm: regular rhythm Heart sounds: S1 normal heart sound present and S2 normal heart sound present GI Inspection: Yes normal to inspection Palpation (GI): Soft to palpation Percussion: Yes normal to percussion Auscultation: normal bowel sounds Coding Level of Care Code Est Pt Prev Care 18-39y(34859) Diagnoses Hypothyroid E03.9 Annual physical exam Z00.00 Additional Codes MELE-7 Assessment Billing - MELE-7 Assessment Tool: MELE-7 Assessment 65644 ([id number]) Assessment & Plan Assessment & Plan (1) Hypothyroid: Code(s): E03.9 - Hypothyroidism, unspecified Category: Medical Plan: cont Levothyroxine (2) Annual physical exam: Code(s): Z00.00 - Encounter for general adult medical examination without abnormal findings Category: Medical Plan: well balanced diet, regular exercise Orders: Orders TSH reflex Free T4 1 Year E03.9 - Hypothyroidism, unspecified, Z00.00 - Encounter for general adult medical examination without abnormal findings UA w Microscopic 1 Year E03.9 - Hypothyroidism, unspecified, Z00.00 - Encounter for general adult medical examination without abnormal findings TSH reflex Free T4 Today E03.9 - Hypothyroidism, unspecified, Z00.00 - Encounter for general adult medical examination without abnormal findings Comprehensive [place]. Panel Fast 1 Year E03.9 - Hypothyroidism, unspecified, Z00.00 - Encounter for general adult medical examination without abnormal findings Lipid Panel 1 Year E03.9 - Hypothyroidism, unspecified, Z00.00 - Encounter for general adult medical examination without abnormal findings Complete Blood Count Auto Diff 1 Year E03.9 - Hypothyroidism, unspecified, Z00.00 - Encounter for general adult medical examination without abnormal findings
== END 2024-08-01 13:55 | disposition home or self-care (01) ==
PROVIDERS: PCP Internal Medicine; Visit Provider Internal Medicine
DX: E03.9 Hypothyroidism, unspecified (principal); Z00.00 Encounter for general adult medical examination without abnormal findings

== ENCOUNTER → 2024-08-01 13:00 | Outpatient (BNVA) | payer OTHER, SELFPAY | PROVIDERS: PCP Internal Medicine; Visit Provider Internal Medicine | DX: Z00.00 Encounter for general adult medical examination without abnormal findings (principal); E03.9 Hypothyroidism, unspecified | CPT/HCPCS: 96127 ==

== ENCOUNTER 2024-08-01 14:00 | Outpatient (REF) | payer OTHER, SELFPAY ==
[2024-08-01 17:04] LABS: TSH reflex Free T4 0.93 uIU/mL (0.32-4.0)
== END 2024-08-01 14:01 | disposition home or self-care (01) ==
LOC: HO.HMGCLDS 14:00
PROVIDERS: PCP Internal Medicine; Visit Provider Internal Medicine
DX: Z00.00 Encounter for general adult medical examination without abnormal findings (principal); E03.9 Hypothyroidism, unspecified
CPT/HCPCS: 36415; 84443

== ENCOUNTER 2024-08-23 14:59 | Outpatient (AMB) | payer OTHER, SELFPAY ==
--- NOTE | 2024-08-23 15:30 | MHC.OFFWIV ---
Intake Vital Signs 08/23/24 15:38 Height 5 ft 3 in Weight 126 lb BMI 22.3 BP 98/58 L Blood Pressure Location Lt brachial Position Sitting Pulse 84 Pulse Source Pulse Oximeter Pulse Oximetry (%) 98 Oxygen Delivery Method Room Air Oxygen Flow Rate 98.7 Intake Visit Reasons: EP nauseous, stomach pain Intake Note: Patient here for nausea, stomach pain that has been present for about 3 days. Patient Tobacco Use Status: Never used Tobacco Allergies No Known Allergies Allergy (Verified 08/23/24 15:39) Do you need a note to return to daycare/school/sports/work: No HPI HPI Comments History of Present Illness Details Patient is a 28-year-old female complaining of 3 days abdominal bloating and diarrhea. She denies any nausea or vomiting or fevers. She does not look at her stool so she does not know if her diarrhea was bloody or black. She states as soon as she eats, the food goes right through her. She generally has been eating salads and not high fat meals so she does not know if they eating a high fat meal would make it worse. She denies anybody else at home being sick with similar symptoms. She denies any chance of . [facility] Medical History (Updated 08/23/24 @ 16:04 by Dipika Newman PA-C) Depo-Provera contraceptive status Encounter for screening Abnormal Pap smear of cervix Annual physical exam Hypothyroid Family History Father No problems noted. 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 Alcohol intake: current Alcohol intake frequency: does not drink Patient Tobacco Use Status: Never used Tobacco e-Cigarette/Vaping Use: Never Used service: No Current occupational status: employed Sexual orientation: Straight/Heterosexual Gender identity: Female Cognitive needs: No Hearing needs: No Vision needs: Yes Review of Systems Const All systems reviewed & are unremarkable except as noted in HPI and below Physical Exam Vital Signs: Last Vital Signs Pulse 84 08/23/24 15:38 BP 98/58 L 08/23/24 15:38 Pulse Ox 98 08/23/24 15:38 Oxygen Delivery Method Room Air 08/23/24 15:38 Oxygen Flow Rate 98.7 08/23/24 15:38 BMI result Body Mass Index 22.3 Const General: cooperative, healthy appearing, comfortable, no acute distress and well developed Orientation/consciousness: patient oriented x3 Limitations: no limitations HEENT Head: Yes normal to inspection Ears: hearing grossly normal bilaterally General nose exam: Normal external nose present Face and sinus: Yes normal facial exam Eyes General: appearance normal, both eyes and all related structures Neck Neck: Yes normal visual inspection and Yes full ROM Resp Effort & Inspection: normal respiratory effort and able to speak in complete sentences GI Inspection: Yes normal to inspection Palpation (GI): Soft to palpation and nontender Skin General skin exam: no rashes or lesions noted Neuro General: patient oriented x3 Extrem General: Yes normal to inspection Assessment & Plan Assessment & Plan (1) Diarrhea: Code(s): R19.7 - Diarrhea, unspecified Qualifiers: Diarrhea type: unspecified type Qualified Code(s): R19.7 - Diarrhea, unspecified Plan: Vital signs are stable, patient well-appearing and physical exam was relatively unremarkable. Ordered a GI panel for the patient, the lab has gone home for the day so she will bulk picker the supplies to do a GI panel tomorrow morning. Likely a viral gastroenteritis Plan See above Orders: Orders GI Panel Today R19.7 - Diarrhea, unspecified Coding Level of Care Code Est Pt Level 3 (78913) Diagnoses Diarrhea, unspecified type R19.7 Diarrhea type: unspecified type
[2024-08-23 15:38] VITALS: BP 98/58; PULSE 84; O2SAT 98; BMI 22.3
== END 2024-08-23 16:18 | disposition home or self-care (01) ==
PROVIDERS: PCP Internal Medicine; Visit Provider Physician Assistant
DX: R19.7 Diarrhea, unspecified (principal)

== ENCOUNTER → 2024-08-23 14:59 | Outpatient (BNVA) | payer OTHER, SELFPAY | PROVIDERS: PCP Internal Medicine; Visit Provider Physician Assistant | DX: R19.7 Diarrhea, unspecified (principal) | CPT/HCPCS: 99212 ==

== ENCOUNTER 2024-09-17 12:55 | Outpatient (AMB) | payer OTHER, SELFPAY ==
--- NOTE | 2024-09-17 15:09 | MHC.OFFWIV ---
Intake Vital Signs 09/17/24 15:21 Weight 122 lb BP 94/62 Blood Pressure Location Lt brachial Position Sitting Pulse 84 Pulse Source Pulse Oximeter Temp 98.3 F Temp Source Oral Pulse Oximetry (%) 98 Oxygen Delivery Method Room Air Intake Visit Reasons: EP congestion, cough, muscle aches [phone] Intake Note: Patient here for body aches, cough, congestion, chills which started yesterday morning. Patient Tobacco Use Status: Never used Tobacco Allergies No Known Allergies Allergy (Verified 09/17/24 15:10) Do you need a note to return to daycare/school/sports/work: Yes HPI HPI Comments History of Present Illness Details Patient is a 29-year-old female complaining of 2 days of body aches, a productive cough with clear mucus and chest congestion. She denies any fevers, shortness of breath or wheezing. She denies a history of asthma or COPD. She did not test for COVID at home. She tells me she has been getting ear infections more frequently and tells me she has some left-sided ear pain but it went away on its own. She has been trying to eat and drink normally. She also tells me her blood pressure typically runs on the lower side. COUNT INCLUDES [facility] Medical History (Updated 09/17/24 @ 15:38 by Dipika Newman PA-C) Depo-Provera contraceptive status Encounter for screening Abnormal Pap smear of cervix Annual physical exam Hypothyroid Family History Father No problems noted. 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 Alcohol intake: current Alcohol intake frequency: does not drink Patient Tobacco Use Status: Never used Tobacco e-Cigarette/Vaping Use: Never Used service: No Current occupational status: employed Sexual orientation: Straight/Heterosexual Gender identity: Female Cognitive needs: No Hearing needs: No Vision needs: Yes Review of Systems Const All systems reviewed & are unremarkable except as noted in HPI and below Physical Exam Vital Signs: Last Vital Signs Temp 98.3 F 09/17/24 15:21 Pulse 84 09/17/24 15:21 BP 92/50 L 09/17/24 15:21 Pulse Ox 98 09/17/24 15:21 Oxygen Delivery Method Room Air 09/17/24 15:21 Const General: cooperative, healthy appearing, comfortable and no acute distress Orientation/consciousness: patient oriented x3 Limitations: no limitations HEENT Head: Yes normal to inspection Ears: hearing grossly normal bilaterally, external ears normal, TM normal on the left and TM abnormal (right) dull, wth effusion, erythematous and with loss of landmarks General nose exam: Normal external nose present, Normal nares present and No nasal discharge present Face and sinus: Yes normal facial exam and Yes sinuses nontender Mouth: Normal oral and palatal mucosa present and moist mucous membranes Throat: Yes tonsils normal, Yes uvula midline and Yes posterior oropharynx abnormal (Erythema) Eyes General: appearance normal, both eyes and all related structures Neck Neck: Yes normal visual inspection Resp Effort & Inspection: normal respiratory effort, able to speak in complete sentences, Actively coughing, no respiratory distress, not tachypneic, no tripod positioning and no use of accessory muscles Auscultation: clear to auscultation bilaterally Cardio Rate: regular rate Rhythm: regular rhythm Heart sounds: normal S1 and S2 Skin General skin exam: no rashes or lesions noted Neuro General: patient oriented x3 Extrem General: Yes normal to inspection and Yes no clubbing, cyanosis or edema Assessment & Plan Assessment & Plan (1) Otitis media: Code(s): H66.90 - Otitis media, unspecified, unspecified ear Qualifiers: Chronicity: acute Laterality: right Otitis media type: suppurative Recurrence: non-recurrent Spontaneous tympanic membrane rupture: without spontaneous rupture Qualified Code(s): H66.001 - Acute suppurative otitis media without spontaneous rupture of ear drum, right ear Plan: We will send amoxicillin to pharmacy (2) URI (upper respiratory infection): Code(s): J06.9 - Acute upper respiratory infection, unspecified Qualifiers: URI type: unspecified URI Qualified Code(s): J06.9 - Acute upper respiratory infection, unspecified Plan: Vital signs are stable, patient well-appearing and physical exam relatively unremarkable beyond the right-sided otitis media. Sent flu COVID and RSV testing Medications: New amoxicillin 875 mg PO Q12H 10 tabs 0RF Coding Level of Care Code Est Pt Level 3 (02124) Diagnoses Non-recurrent acute suppurative otitis media of right ear without spontaneous rupture of tympanic membrane H66.001 Chronicity: acute Laterality: right Otitis media type: suppurative Recurrence: non-recurrent Spontaneous tympanic membrane rupture: without spontaneous rupture Upper respiratory tract infection, unspecified type J06.9 URI type: unspecified URI
[2024-09-17 15:21] VITALS: BP 94/62; PULSE 84; TEMP 36.8; O2SAT 98
== END 2024-09-17 15:35 | disposition home or self-care (01) ==
PROVIDERS: PCP Internal Medicine; Visit Provider Physician Assistant
DX: H66.001 Acute suppurative otitis media without spontaneous rupture of ear drum, right ear (principal); J06.9 Acute upper respiratory infection, unspecified

== ENCOUNTER → 2024-09-17 12:55 | Outpatient (BNVA) | payer OTHER, SELFPAY | PROVIDERS: PCP Internal Medicine; Visit Provider Physician Assistant | DX: H66.001 Acute suppurative otitis media without spontaneous rupture of ear drum, right ear (principal); J06.9 Acute upper respiratory infection, unspecified | CPT/HCPCS: 99212 ==

== ENCOUNTER 2024-09-17 15:21 | Outpatient (REF) | payer OTHER, SELFPAY ==
[2024-09-18 17:01] LABS: Influenza A PCR NEGATIVE (Negative); Influenza B PCR NEGATIVE (Negative); Resp Syncy Virus RNA Qual PCR NEGATIVE (Negative); SARS COV2 PCR INHOUSE POSITIVE (Negative)
== END 2024-09-17 15:22 | disposition home or self-care (01) ==
LOC: HO.LNP 15:21
PROVIDERS: Visit Provider Physician Assistant
DX: R09.89 Other specified symptoms and signs involving the circulatory and respiratory systems (principal); J06.9 Acute upper respiratory infection, unspecified
CPT/HCPCS: 0241U

== ENCOUNTER 2024-11-02 12:43 | Outpatient (AMB) | payer OTHER, SELFPAY ==
[2024-11-02 12:45] VITALS: BP 102/68; PULSE 80; O2SAT 96; BMI 21.6
--- NOTE | 2024-11-02 12:45 | MHC.OFFWIV ---
Intake Vital Signs 11/02/24 12:45 Height 5 ft 3 in Weight 122 lb BMI 21.6 BP 102/68 Blood Pressure Location Lt brachial Position Sitting Pulse 80 Pulse Source Pulse Oximeter Pulse Oximetry (%) 96 Oxygen Delivery Method Room Air Intake Visit Reasons: EP-b/l ear infection Intake Note: Pt is here today for a walk in visit. Pt c/o L ear discomfort. Patient Tobacco Use Status: Never used Tobacco Allergies No Known Allergies Allergy (Verified 11/02/24 12:48) Do you need a note to return to daycare/school/sports/work: No HPI HPI Comments History of Present Illness Details History of Present Illness - The patient is a 29-year-old female presenting with concerns for an ear infection and decreased hearing on the left side. - History of recurrent ear infections with three episodes in the past year. - Recently infected with COVID concomitant with an ear infection, after which a course of antibiotics was completed without full resolution of symptoms. - Experiences intermittent hearing loss in the left ear, resembling a sensation of fluid and reduced auditory clarity. Most recent episodes occurred thrice the previous day. - Denied associated fever, cough, or congestion recently. - Prior treatment included usage of ear drops for wax management under doctor's guidance. Patient has encountered some ear pain during application. - Uses Alexa D for allergies but had not used Flonase or similar corticosteroids. Physical Exam General: Cooperative, healthy appearing, comfortable, no acute distress and well developed Orientation: Patient oriented x3 Limitations: No limitations Head: Normal to inspection Ears: Normal external ears bilat, TM right has effusion no infection, TM left has effusion. EAC right normal, EAC left erythema, tenderness and slight edema Nose: Normal external nose present Face and sinus: Normal facial exam Eyes: Appearance normal, both eyes and all related structures Neck: Normal visual inspection and Yes full ROM Respiratory: Normal respiratory effort and able to speak in complete sentences. Skin: No rashes or lesions noted Neuro: Patient oriented x3 Extremities: Normal to inspection [facility] Medical History (Updated 11/02/24 @ 13:20 by Dipika Newman PA-C) Depo-Provera contraceptive status Encounter for screening Abnormal Pap smear of cervix Annual physical exam Hypothyroid Family History Father No problems noted. 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 Alcohol intake: current Alcohol intake frequency: does not drink Patient Tobacco Use Status: Never used Tobacco e-Cigarette/Vaping Use: Never Used service: No Current occupational status: employed Sexual orientation: Straight/Heterosexual Gender identity: Female Cognitive needs: No Hearing needs: No Vision needs: Yes Review of Systems Const All systems reviewed & are unremarkable except as noted in HPI and below Physical Exam Vital Signs: Last Vital Signs Pulse 80 11/02/24 12:45 BP 102/68 11/02/24 12:45 Pulse Ox 96 11/02/24 12:45 Oxygen Delivery Method Room Air 11/02/24 12:45 BMI result Body Mass Index 21.6 Assessment & Plan Assessment & Plan (1) Otitis externa of left ear: Code(s): H60.92 - Unspecified otitis externa, left ear Qualifiers: Otitis externa type: other infective Chronicity: acute Qualified Code(s): H60.392 - Other infective otitis externa, left ear Plan: Recurrent Acute effusions combined with external otitis on the left side will be addressed with topical and systemic corticosteroids and Flonase. Flonase nasal spray will be taken twice per day to assist with nasal congestion and fluid drainage. An oral steroid, prednisone, at 20 mg per day for five days, will be initiated to alleviate inflammation and fluid retention, with instructions to take in the morning. Ear drops prescribed for topical treatment of the left ear are to be administered four times daily for one week to resolve external infection and related pain. Continued use of Alexa D is supported. Reassessment will be considered if symptom resolution is inadequate. May need ENT referral from PCP if continues. Patient was informed and verbally consented to the use of an ambient scribe for clinic note documentation during this visit. (2) Acute effusion of both middle ears: Code(s): H65.193 - Other acute nonsuppurative otitis media, bilateral Plan: as above Medications: New fluticasone propionate 50 mcg/actuation administer into each nostril 1 spray intranasal Q12H 16 grams 0RF prednisone 20 mg PO QAM 5 tabs 0RF [id number] 3.5-10,000-1 mg/mL-unit/mL-% 4 drps otic (ear) left QID 7 days 10 mL 0RF Coding Level of Care Code Est Pt Level 3 (89503) Diagnoses Other infective acute otitis externa of left ear H60.392 Otitis externa type: other infective Chronicity: acute Acute effusion of both middle ears H65.193
== END 2024-11-02 13:32 | disposition home or self-care (01) ==
PROVIDERS: PCP Internal Medicine; Visit Provider Physician Assistant
DX: H60.392 Other infective otitis externa, left ear (principal); H65.193 Other acute nonsuppurative otitis media, bilateral

== ENCOUNTER → 2024-11-02 12:43 | Outpatient (BNVA) | payer OTHER, SELFPAY | PROVIDERS: PCP Internal Medicine; Visit Provider Physician Assistant | DX: H60.392 Other infective otitis externa, left ear (principal); H65.193 Other acute nonsuppurative otitis media, bilateral | CPT/HCPCS: 99212 ==

== ENCOUNTER → 2024-11-26 12:01 | Outpatient (BNVA) | payer OTHER, SELFPAY | PROVIDERS: PCP Internal Medicine ==

== ENCOUNTER 2024-11-28 12:00 | Outpatient (AMB) | payer OTHER, SELFPAY ==
[2024-11-28 12:02] VITALS: BP 104/60; PULSE 88; O2SAT 98
--- NOTE | 2024-11-28 12:02 | AM.OFFWIN_ITS ---
Intake Vital Signs 11/28/24 12:02 Weight 121 lb BP 104/60 Blood Pressure Location Rt brachial Position Sitting Pulse 88 Pulse Source Pulse Oximeter Pulse Oximetry (%) 98 Oxygen Delivery Method Room Air Intake Visit Reasons: EP vertigo Intake Note: Patient here for vertigo that has been going on for the past couple of weeks. Patient Tobacco Use Status: Never used Tobacco Allergies No Known Allergies Allergy (Verified 11/28/24 12:03) Do you need a note to return to daycare/school/sports/work: No HPI HPI Comments History of Present Illness Details She presents to office with vertigo symptoms She said it has occured the last two weekends but not during the weel Unbalanced feeling with minimal room spinning Denies falls or HT Has been days where it has been snowing so she has been hanging at home without known cause of symptoms No LOC + nausea associated without vomiting Usuaully lasts all day She said she has had this before; in the past had ear infections that caused this (summer 2023 had OM and then BPPV) She was seen in september for + OM and then 11/02/24 and had fluid in ears and used antibiotic drops, prednisone and flonase SHe said she does not have ear pain now, 0/10 No No fever, chills numbness or weakness Last episode was tuesday [facility] Medical History (Updated 11/28/24 @ 13:05 by Gaviota Davis PA-C) Depo-Provera contraceptive status Encounter for screening Abnormal Pap smear of cervix Annual physical exam Hypothyroid Family History Father No problems noted. 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 Alcohol intake: current Alcohol intake frequency: does not drink Patient Tobacco Use Status: Never used Tobacco e-Cigarette/Vaping Use: Never Used service: No Current occupational status: employed Sexual orientation: Straight/Heterosexual Gender identity: Female Cognitive needs: No Hearing needs: No Vision needs: Yes Review of Systems Const Denies chills, Denies fever(s), Denies frequent falls and Denies headache(s) Eyes Denies change in vision ENT Reports vertigo, Reports dizziness, Denies otalgia (none currently but + recurrent infections), Denies headache(s), Denies sinus pain, Denies sinus pressure and Denies sore throat Card Denies chest pain, Denies syncope and Denies dyspnea Resp Denies cough and Denies dyspnea GI Reports nausea and Denies vomiting Musc Denies myalgias Neuro Denies confusion, Reports vertigo, Reports dizziness, Denies syncope, Denies frequent falls, Denies headache(s) and Denies paresthesias Psych Denies confusion Physical Exam Vital Signs: Last Vital Signs Pulse 88 11/28/24 12:02 BP 104/60 11/28/24 12:02 Pulse Ox 98 11/28/24 12:02 Oxygen Delivery Method Room Air 11/28/24 12:02 General: Non-toxic, NAD. Speaking full sentences. Skin: Warm dry throughout Eye: EOMI, PERRLA HENT: Airway patent. Uvula midline. No pharyngeal erythema or edema. No HEALTH INFORMATION MANAGER. Bilateral canals clear. TMs appear to have scarring but otherwise TM non- erythematous, non-bulging. No TM perforation or hemotympanum noted. Respiratory: CTA bilaterally. No wheezes, rales or rhonchi Cardiac: RRR. No murmur MSK: Full ROM extremities. Neurology: A/O x 3. CN 2-12 grossly intact. Negative pronator drift. Able to maintain balance with Rhomberg. 5/5 varying exceptionalities teacher strength. No aphasia or facial droop. Gait without abnormality Psych: Good mood and affect Const General: No confusion Orientation/consciousness: No confusion Neuro General: No confusion Assessment & Plan Assessment & Plan (1) Dizziness: Code(s): R42 - Dizziness and giddiness Plan: Patient seen and evaluated. No current dizziness symptoms Discussed should see ENT and note sent to her PCP for possible referral No current OM or OE No neuro deficits Meclizine ordered ER s/s discussed and patient gave verbal understanding and had no additional questions or concerns at time of discharge All questions answered Medications: New meclizine 25 mg PO BID PRN 10 tabs 0RF dizziness Coding Level of Care Code Est Pt Level 3 (22633) Diagnoses Dizziness R42
== END 2024-11-28 12:42 | disposition home or self-care (01) ==
PROVIDERS: PCP Internal Medicine; Visit Provider Physician Assistant
DX: R42 Dizziness and giddiness (principal)

== ENCOUNTER → 2024-11-28 12:00 | Outpatient (BNVA) | payer OTHER, SELFPAY | PROVIDERS: PCP Internal Medicine | DX: R42 Dizziness and giddiness (principal) | CPT/HCPCS: 99212 ==

== ENCOUNTER 2024-12-05 12:03 | Outpatient (AMB) | payer OTHER, SELFPAY ==
--- NOTE | 2024-12-05 12:32 | A.OFFPC_ITS ---
Vital Signs 12/05/24 12:33 Height 5 ft 3 in Weight 120 lb BMI 21.3 BP 96/64 Blood Pressure Location Lt brachial Position Sitting Respiration 18 Pulse 76 Pulse Source Pulse Oximeter Temp 99.1 F Temp Source Oral Pulse Oximetry (%) 97 Oxygen Delivery Method Room Air Intake Visit Reasons: Follow on vertigo Intake Note: Pt is here today for a follow up visit on vertigo. Allergies No Known Allergies Allergy (Verified 12/05/24 12:36) Medication List - Last Reconciled 12/05/24 by Clarissa Grider MD fluticasone propionate 50 mcg/actuation 1 spray intranasal Q12H levothyroxine 100 mcg PO DAILY meclizine 25 mg PO BID PRN sertraline 50 mg PO QAM trazodone mg PO BEDTIME Tobacco use date assessed: 12/05/24 Dental Screening Dental Screen Date: 12/05/24 Did you have a dental visit in the last 12 months?: Yes Did you have a dental problem in the last 6 months where you did not have access to dental care?: No Was dental information given to patient?: Patient has dentist HPI Follow on vertigo HPI Details Pt patient presents for the follow-up of multiple walk in visits for recurrent sensation of fullness and intermittent decreased hearing in the left ear for 2 months and episode of vertigo last week which resolved. Patient was treated multiple times with antibiotics steroids and Flonase spray without significant change in her symptoms. She denies fever chills ear pain sore throat but reports intermittent sinus congestion and postnasal drip. [facility] Medical History (Updated 12/05/24 @ 13:09 by Clarissa Grider MD) Depo-Provera contraceptive status Encounter for screening Abnormal Pap smear of cervix Annual physical exam Hypothyroid Family History Father No problems noted. 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 1. Little interest or pleasure in doing things: several days 2. Feeling down, depressed, or hopeless: several days 3. Trouble falling or staying asleep, or sleeping too much: several days 4. Feeling tired or having little energy: several days 5. Poor appetite or overeating: several days 6. Feeling bad about yourself - or that you are a failure or have let yourself or your family down: not at all 7. Trouble concentrating on things, such as reading the newspaper or watching television: not at all 8. Moving or speaking so slowly that other people could have noticed. Or the opposite - being so fidgety or restless that you have been moving around a lot more than usual: several days 9. Thoughts that you would be better off or of hurting yourself in some way: not at all Total score: 6 Depression Screening Interpretation: Negative Depression Screening Done: Yes 31272 - PHQ-9 Billing: Yes Source: Developed by Drs. Santosh Pyle, Mary Jo Escobar, Julian Centeno and colleagues, with an educational to from [employer]. Thrive Questionnaire Date Thrive assessed: 12/05/24 I am a: Patient What is your living situation today?: I have a steady place to live Within the past 12 months, did the food you bought not last and you didn't have the money to get more?: Never true Within the past 12 months, did you worry whether your food would run out before you got money to buy more?: Never true Do you have trouble paying for medicines?: No Do you have trouble getting transportation to medical appointments?: No Do you have trouble paying your heating and electricity bill?: No Do you have trouble taking care of your child, family member or friend?: No Do you have trouble with day-to-day activities such as bathing, preparing meals, shopping, managing finances, etc.?: No Are you currently unemployed and looking for a job?: No Are you interested in more education?: No Please select the resources that you would like help with: None Currently or been in a relationship where the following occur: No concerns reported THRIVE Score: 0 AUDIT C Alcohol Use Questionnaire (AUDIT-C) 1. How often do you have a drink containing alcohol?: Monthly or less 2. How many drinks containing alcohol do you have on a typical day when you are drinking?: 1 or 2 3. How often do you have six or more drinks on one occasion?: Never Total Score: 1 MELE-7 AMB Questionnaire MELE-7 Date MELE - 7 assessed: 12/05/24 Feeling nervous, anxious, or on edge: 1 = Several days Not being able to stop or control worryin = Several days Worrying too much about different things: 1 = Several days Trouble relaxin = Several days Being so restless that it is hard to sit still: 1 = Several days Becoming easily annoyed or irritable: 1 = Several days Feeling afraid as if something awful might happen: 0 = Not at all Total MELE-7 score (0-4 normal; 5-9 mild; 10-14 moderate; 15-21 severe): 6 Source: Developed by Drs. Santosh Pyle, Mary Jo Escobar, Julian Centeno and colleagues, with an educational to from [employer]. MELE-7 Assessment Billing MELE-7 Assessment Tool: MELE-7 Assessment 78019 Review of Systems Const All systems reviewed & are unremarkable except as noted in HPI and below Eyes Reports no additional complaints ENT Reports no additional complaints Card Reports no additional complaints Resp Reports no additional complaints GI Reports no additional complaints Reports no additional complaints Physical exam (Primary Care) Vital Signs: Last Vital Signs Temp 99.1 F 12/05/24 12:33 Pulse 76 12/05/24 12:33 Resp 18 12/05/24 12:33 BP 96/64 12/05/24 12:33 Pulse Ox 97 12/05/24 12:33 Oxygen Delivery Method Room Air 12/05/24 12:33 BMI result Body Mass Index 21.3 Tobacco/Smoking Status: Tobacco use Status Tobacco use date assessed 12/05/24 12/05/24 12:42 Patient Tobacco Use Status Never used Tobacco 12/05/24 12:42 e-Cigarette/Vaping Use Never Used 12/05/24 12:33 PHQ-9: PHQ-9 Score PHQ-9: Total score 6 12/05/24 13:03 Depression Screening Interpretation: Negative Thrive Assessment: Date of Thrive Assessment Date Thrive assessed 12/05/24 12/05/24 12:42 Currently or been in a relationship where the following occur: No concerns reported Const General: no acute distress HENMT Head: Yes normal to inspection Ears: hearing grossly normal bilaterally, no periauricular adenopathy, TM abnormal (bilateral) with loss of landmarks; not erythematous, Edwards (Lateralized to right ear) and Rinne test (intact bilaterally) Face and sinus: Yes normal facial exam Throat: Yes posterior oropharynx normal Eyes General: appearance normal, both eyes and all related structures Neck Neck: Yes no lymphadenopathy and Yes supple Resp Effort & Inspection: normal respiratory effort Auscultation: clear to auscultation bilaterally Cardio Rhythm: regular rhythm Heart sounds: S1 normal heart sound present and S2 normal heart sound present Coding Level of Care Code Est Pt Level 3 (47361) Diagnoses Left ear hearing loss H91.92 Additional Codes MELE-7 Assessment Billing - MELE-7 Assessment Tool: MELE-7 Assessment 21189 ([id number]) PHQ-9 - 94791 - PHQ-9 Billing: Yes ([id number]) Assessment & Plan Assessment & Plan (1) Left ear hearing loss: Code(s): H91.92 - Unspecified hearing loss, left ear Category: Medical Plan: For question of sensorineural hearing loss in left ear hearing test will be obtained, patient was advised to use Flonase nasal spray for intermittent postnasal drip and sinus congestion. She will follow-up after a hearing test Orders: Referrals Speech and Hearing Referral H91.92 - Unspecified hearing loss, left ear Medications: Refilled meclizine 25 mg PO BID PRN 20 tabs 0RF dizziness
[2024-12-05 12:33] VITALS: BP 96/64; PULSE 76; RESP 18; TEMP 37.3; O2SAT 97; BMI 21.3
--- OUTSIDE RECORDS SUMMARY | 2024-12-05 12:34 | XMS_ITS | Data Portability ---
Author Organization [facility] Address [address] [place] [address] Assessment No assessment recorded. Plan of Treatment Reminders Order Date Submit Date Provider Last Modified By Organization Details Last Modified Time Details Appointments None recorded. Lab urinalysis, dipstick 2022 023 [place] [id number] _bharath holm, [address] [place] [address], [place], [address], 15:39:29 test, urine 2022 023 [place] [address] [facility], [address] [place] [address], [address], 15:39:29 culture, urine 2022 023 [facility], [address] [place] [address], [place], [address], 06:07:45 Referral None recorded. Procedures None recorded. Surgeries None recorded. Imaging None recorded. Medication Orders ondansetron 4 mg disintegrat ing tablet 2022 023 [id number], [address] [facility] [place], [address], 15:39:32 Patient TargetsNo targets recorded. Patient Instructions Encounter Date Encounter Id Patient Instructions Last Modified By Organization Details Last Modified Time 03/10/2023 [id number] nausea and vomiting: care instructions [place] [id number] Not available 03/10/2023 15:39:29 Try small amount s of clear liquids frequently. If vomiting occurs, wait 30-60 minutes before trying clear liquids again. Once you are able to tolerate clear liquids for at least 6 hours without vomiting, you can advance to a soft diet consisting of foods such as bananas, rice, applesauce, toast, crackers, and other foods rich in carbohydrates and low on fats and spices. If the diet is tolerated for 12-24 hours, you can slowly add other foods to your diet. If vomiting occurs, you should go back to clear liquids only and work your way back to a normal diet as outlined above. If much worse, you should seek treatment immediately. [email or web address] Not available 03/10/2023 14:53:05 Reason for Referral None Reported. Results Created Date Observation Date Name Description Value Unit Range Abnormal Flag Note LastModifiedBy Organization Detail LastModifiedTime 03/10/2003/11/2023 URINE CULTU REFERNY NE urine culture, routine FINAL REPORT Not Available [facility] ([facility]) [address] [place], [address], 03/12/2023 06:07:45 03/10/20 23 03/11/2023 URINE CULTU REFERNY NE result 1 NO GROWTH Not Available [facility] ([facility]) [address], [place], [place], [address], 03/12/2023 06:07:45 03/10/20 23 03/10/2023 pregn chadd test, urine Unknown Analyte Normal = Negati ve Not Available jens [address], [address], 03/10/2023 14:56:41 03/10/20 23 03/10/2023 pregn chadd test, urine Unknown Analyte negati ve Not Available jens [address], [address], 03/10/2023 14:56:41 03/10/20 23 03/10/2023 urina lysis , dipst ick Unknown Analyte Normal = light yellow Not Available ginger[address], [address], 03/10/2023 14:56:35 03/10/20 23 03/10/2023 urina lysis , dipst ick Unknown Analyte Normal = clear Not Available jens wood [address], [place], [address], 03/10/2023 14:56:35 03/10/20 23 03/10/2023 urina lysis , dipst ick Unknown Analyte Yellow Not Available [facility] [address], [place], [address], 03/10/2023 14:56:35 03/10/20 23 03/10/2023 urina lysis , dipst ick Unknown Analyte Cloudy Not Available [facility] [address], [place], [address], 03/10/2023 14:56:35 03/10/20 23 03/10/2023 urina lysis , dipst ick Unknown Analyte Normal = negati ve Not Available jens wood [address], [place], [address], 03/10/2023 14:56:35 03/10/20 23 03/10/2023 urina lysis , dipst ick Unknown Analyte Normal = Negati ve Not Available jens wood [address], [place], [address], 03/10/2023 14:56:35 03/10/20 23 03/10/2023 urina lysis , dipst ick Unknown Analyte Normal = Negati ve Not Available jens wood [address], [place], [address], 03/10/2023 14:56:35 03/10/20 23 03/10/2023 urina lysis , dipst ick Unknown Analyte Negati ve Not Available jens wood [address], [place], [address], 03/10/2023 14:56:35 03/10/2003/10/2023 urina lysis , dipst ick Unknown Analyte Negati ve Not Available jens wood [address], [place], [address], 03/10/2023 14:56:35 03/10/20 23 03/10/2023 urina lysis , dipst ick Unknown Analyte Negati ve Not Available jens wood [address], [place], [address], 03/10/2023 14:56:35 03/10/20 23 03/10/2023 urina lysis , dipst ick Unknown Analyte Normal = 1.010, 1.015, 1.020 Not Available jens wood [address], [place], [address], 03/10/2023 14:56:35 03/10/20 23 03/10/2023 urina lysis , dipst ick Unknown Analyte 1.020 Not Available bharath [address], [place], [address], 03/10/2023 14:56:35 03/10/20 23 03/10/2023 urina lysis , dipst ick Unknown Analyte Normal = Negati ve Not Available jens wood [address], [place], [address], 03/10/2023 14:56:35 03/10/20 23 03/10/2023 urina lysis , dipst ick Unknown Analyte Negati ve Not Available jens wood [address], [place], [address], 03/10/2023 14:56:35 03/10/20 23 03/10/2023 urina lysis , dipst ick Unknown Analyte Normal = 6.5, 7.0, 7.5, 8.0 Not Available jens wood [address], [place], [address], 03/10/2023 14:56:35 03/10/20 23 03/10/2023 urina lysis , dipst ick Unknown Analyte 8.5 Not Available [address], [place], [address], 03/10/2023 14:56:35 03/10/20 23 03/10/2023 urina lysis , dipst ick Unknown Analyte Normal = Negati ve Not Available jens [address], [place], [address], 03/10/2023 14:56:35 03/10/20 23 03/10/2023 urina lysis , dipst ick Unknown Analyte Negati ve Not Available [facility] [address], [place], [address], 03/10/2023 14:56:35 03/10/20 23 03/10/2023 urina lysis , dipst ick Unknown Analyte Normal = 0.2, 1.0 Not Available jens [address], [place], [address], 03/10/2023 14:56:35 03/10/20 23 03/10/2023 urina lysis , dipst ick Unknown Analyte 0.2 E.U./d L Not Available [facility] [address], [place], [address], 03/10/2023 14:56:35 03/10/20 23 03/10/2023 urina lysis , dipst ick Unknown Analyte Normal = Negati ve Not Available ginger[address], [place], [address], 03/10/2023 14:56:35 03/10/20 23 03/10/2023 urina lysis , dipst ick Unknown Analyte Negati ve Not Available [address] [facility] [address] [facility] [place], [address], 03/10/2023 14:56:35 03/10/2003/10/2023 urina lysis , dipst ick Unknown Analyte Normal = Negati ve Not Available [address] [place] [address] [facility] [place], [address], 03/10/2023 14:56:35 03/10/20 23 03/10/2023 urina lysis , dipst ick Unknown Analyte Trace Not Available [address] [place] [address]bre[place] [address] [place], [address], 03/10/2023 14:56:35 Result Notes None recorded. Problems Name Problem SNOMED Code Status Onset Date Resolution Date Notes Provider Name and Address Organization Details Recorded Time Hypothyroidism 10991176 Active 2022 AINSLEY Rankin - [facility] 14:55:22 Problem Notes None recorded. Medical Equipment None Reported. Allergies No known drug allergies Medications Name Sig Start Date Stop Date Status Note LastModified by Organization Details LastModified Time metronidazo le 0.75 % (37.5 mg/5 gram) vaginal gel 03/10 completed Not Available Not Available Not Available levothyroxi ne 100 mcg tablet active Not Available Not Available Not Available amoxicillin 875 mg tablet TAKE 1 TABLET (ORAL) 2 TIMES PER DAY FOR 10 DAYS FOR INFECTION 03/10 completed Not Available Not Available Not Available ondansetron 4 mg disintegrat ing tablet Place 1 tablet 3 times a day by transling ual route for 5 days. 2022 active Not Available Not Available Not Avai lable metronidazo le 1 % topical gel 03/10 completed Not Available Not Available Not Available Vitals Date Recorded Body height Body mass index (BMI) Body weight Pain severity - 0-10 verbal numeric rating [Score] - Reported Respiratory rate Oxygen saturation Oxygen saturation in Arterial blood by Pulse oximetry Heart rate Body temperature Systolic blood pressure Diastolic blood pressure Provider Name and Address Organization Details Last Updated DateTime 160.02 cm 21.6 kg/m2 37765.2 7 g 0 20 /min 98 % 98 % 82 /min 98.3 [degF] 110 mm[Hg] 70 mm[Hg] MYNOR VILLASENOR PA - [facility] 14:57:30 Social History Question Answer Notes LastModified by Organizat ion Details LastModified Time Tobacco Smoking Status Never Smoker MYNOR chang PA - [facility] 03/10/2023 14:56:08 What Is Your Level Of Alcohol Consumption? Occasional [email or web address] Information not available 03/10/2023 Do You Use Any Illicit Or Recreational Drugs? No [email or web address] Information not available 03/10/2023 Have You Recently Traveled Abroad? No [email or web address] Information not available 03/10/2023 Do You Or Have You Ever Used Any Other Forms Of Tobacco Or Nicotine? No Information not available 03/10/2023 Sex: Unknown Functional Status None recorded. Mental Status None recorded. Family History Relationship Description Onset Age of this Age Resolved Age Notes LastModified by Organization Details LastModified Time Father No current problems or disability [email or web address] Not available 03/10 14:55:40 Mother No current problems or disability [email or web address] Not available 03/10 14:55:40 Medical History No medical history recorded. Gynecological History Statement/Question Response Date of LMP 03/04/2023 Is there any chance of ? No Obstetrics History GPAL:G 0 P 0 0 0 0 Past Encounters Encounter ID Performer Location Encounter Start Date Encounter Closed Date Diagnosis/Indication Diagnosis SNOMED-CT Code Diagnosis ICD10 Code Diagnosis Note [id number] [address] [address] 08/17/2022 18:19:18 08/17/2022 20:01:55 [id number] Alex Taylor MD [address] [address] 03/10/2023 13:00:53 03/10/2023 15:46:16 Nausea and vomiting [id number] R11.2 Do not continue with Laxatives. Sometimes over use of laxatives can have the opposite effect and slow down the gastrointe stinal system requiring higher doses of laxatives for the same effectsDri nk plenty of fluids and take nausea medication ,There was no Xray available today but if continues an Xray woud be recommende d Abdominal pain [id number] R10.9 If pain continues or worsens and you do not have bowel movement in the next 24 hours then you will need to go to the ERAvoid high fiber foods, meats, and other difficult to digest food. Stick mainly to liquids and smoothies today. Health Concerns Section Related Observation LastModified by Organization Detai ls LastModified Time None Recorded Concern Status LastModified by Organization Details LastModified Time None Recorded Advance Directives Directive None Recorded Payers Encounter Date Sequence Insurance Name Policy Number Policy Simmons Covered Member ID Simmons Member ID Guarantor Name 08/17/2022 1 [facility] [place] () Caro Downey [id number] Caro Downey 03/10/2023 1 [facility] [place] () Caro Downey [id number] Caro Downey Notes Date Note Type Note Provider Name and Address Organization Details Recorded Time 03/10/2023 text/html Nausea / Vomitin g UCReported bypatient.Severit y:mild Duration:3 days Onset/Timing:inte rmittent Context:no one else with similar symptoms; no possible food sources; no recent travel; no well water Aggravating Factors:nothing makes it worse Takes laxatives on and off lately because she feels bloating and infrequent bowel movements. Took Laxatives 3 days ago and felt nausea and vomited. Last BM was small and about 3 days ago. Alex Taylor MD [address] [place], [address], PA - [facility] 03/13/2023 12:59:51 OBGyn Episode No OBEpisode recorded.
== END 2024-12-05 14:54 | disposition home or self-care (01) ==
PROVIDERS: PCP Internal Medicine; Visit Provider Internal Medicine
DX: H91.92 Unspecified hearing loss, left ear (principal)

== ENCOUNTER → 2024-12-05 12:03 | Outpatient (BNVA) | payer OTHER, SELFPAY | PROVIDERS: PCP Internal Medicine; Visit Provider Internal Medicine | DX: H91.92 Unspecified hearing loss, left ear (principal) | CPT/HCPCS: 96127; 99212 ==

== ENCOUNTER 2024-12-07 09:37 | Outpatient (REF) | payer OTHER, SELFPAY ==
[2024-12-07 14:32] LABS: Influenza A PCR POSITIVE (Negative); Influenza B PCR NEGATIVE (Negative); Resp Syncy Virus RNA Qual PCR NEGATIVE (Negative); SARS COV2 PCR INHOUSE NEGATIVE (Negative)
== END 2024-12-07 09:38 | disposition home or self-care (01) ==
LOC: HO.LAB 09:37
PROVIDERS: PCP Internal Medicine; Visit Provider Physician Assistant
DX: J11.1 Influenza due to unidentified influenza virus with other respiratory manifestations (principal)
CPT/HCPCS: 0241U; 99212

== ENCOUNTER 2024-12-07 09:37 | Outpatient (AMB) | payer OTHER, SELFPAY ==
--- NOTE | 2024-12-07 10:03 | AM.OFFWIN_ITS ---
Intake Vital Signs 12/07/24 10:08 Height 5 ft 3 in Weight 120 lb BMI 21.3 BP 98/62 Blood Pressure Location Rt brachial Position Sitting Pulse 77 Pulse Source Pulse Oximeter Temp 98.2 F Temp Source Oral Pulse Oximetry (%) 99 Oxygen Delivery Method Room Air Intake Visit Reasons: EP Headache, cough, body ache Intake Note: Patient here for cough, body aches and headaches. She states she was around a coworker that has the flu. Patient Tobacco Use Status: Never used Tobacco Allergies No Known Allergies Allergy (Verified 12/07/24 10:07) Do you need a note to return to daycare/school/sports/work: Yes HPI HPI Comments History of Present Illness Details History - The patient is a 29-year-old female pr esenting with flu-like symptoms. - She reports an onset of a sore throat the previous night, followed by a headache and a cough upon waking on the day of admission. - She has not experienced fever, wheezin g, shortness of breath, or fatigue at the outset. 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 - Denies pain in sinus areas despite kaykay e pressure and confirmed having headaches. Physical Exam General: Cooperative, healthy appearing, comfortable and no acute distress Orientation/consciousness: Patient oriented x3 Limitations: No limitations Head: Normal to inspection Ears: Hearing grossly normal bilaterally, external ears normal and TM's normal bilaterally Nose: Normal external nose present, Normal nares present and No nasal discharge present Face and sinus: Normal facial exam and Yes sinuses nontender Mouth: Normal oral and palatal mucosa present and moist mucous membranes Throat: Yes tonsils normal, Yes uvula midline. Posterior oropharynx erythema Eyes: Appearance normal, both eyes and all related structures Neck: Normal visual inspection Respiratory: Clear to auscultation bilaterally. Normal respiratory effort, able to speak in complete sentences, Actively coughing, no respiratory distress, not tachypneic, no tripod positioning and no use of accessory muscles Cardiovascular: Regular rate and rhythm. Normal S1 and S2 Skin: No rashes or lesions noted Neuro: Patient oriented x3 Extremities: Normal to inspection and Yes no clubbing, cyanosis or edema [facility] Medical History (Updated 12/07/24 @ 10:13 by Dipika Newman PA-C) Depo-Provera contraceptive status Encounter for screening Abnormal Pap smear of cervix Annual physical exam Hypothyroid Family History Father No problems noted. 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 Alcohol intake: current Alcohol intake frequency: does not drink Patient Tobacco Use Status: Never used Tobacco e-Cigarette/Vaping Use: Never Used service: No Current occupational status: employed Sexual orientation: Straight/Heterosexual Gender identity: Female Cognitive needs: No Hearing needs: No Vision needs: Yes Review of Systems Const All systems reviewed & are unremarkable except as noted in HPI and below Physical Exam Vital Signs: Last Vital Signs Temp 98.2 F 12/07/24 10:08 Pulse 77 12/07/24 10:08 BP 98/62 12/07/24 10:08 Pulse Ox 99 12/07/24 10:08 Oxygen Delivery Method Room Air 12/07/24 10:08 BMI result Body Mass Index 21.3 Assessment & Plan Assessment & Plan (1) Influenza with upper respiratory symptoms: Code(s): J11.1 - Influenza due to unidentified influenza virus with other respiratory manifestations Plan: The patient is presumptively diagnosed with an influenza infection and advised on the potential benefits and side effects of initiating oseltamivir/Tamiflu treatment if symptoms escalate severely. Conservative management encompassing rest, fluid intake, and 1000 mg of acetaminophen every 8 hours for fever is recommended. The patient underwent flu testing with results pending bolstered advice on conservative management and should refrain from work until symptoms are under control. I have instructed her to take today and Tuesday off from work, with an anticipated return on Tuesday if symptomatically improved, alongside providing a work excuse. Follow-up shall be through a confirmation call about the test results before the day's end. Patient was informed and verbally consented to the use of an ambient scribe for clinic note documentation during this visit Orders: Orders SARS-CoV2/FLU/RSV Today R09.89 - Other specified symptoms and signs involving the circulatory and respiratory systems Medications: New oseltamivir (Tamiflu) 75 mg PO Q12H 5 days 10 caps 0RF Coding Level of Care Code Est Pt Level 3 (19063) Diagnoses Influenza with upper respiratory symptoms J11.1
[2024-12-07 10:08] VITALS: BP 98/62; PULSE 77; TEMP 36.8; O2SAT 99; BMI 21.3
--- OUTSIDE RECORDS SUMMARY | 2024-12-07 10:10 | XMS_ITS | Data Portability ---
Author Organization [facility] Address [address] [place] [address] Assessment No assessment recorded. Plan of Treatment Reminders Order Date Submit Date Provider Last Modified By Organization Details Last Modified Time Details Appointments None recorded. Lab urinalysis, dipstick 2022 023 [place] [address] _bharath holm, [address] [place] [address], [place], [address], 15:39:29 test, urine 2022 023 [place] [address] [facility], [address] [place] [address], [address], 15:39:29 culture, urine 2022 023 [place] [facility], [address] [place] [address], [place], [address], 06:07:45 Referral None recorded. Procedures None recorded. Surgeries None recorded. Imaging None recorded. Medication Orders ondansetron 4 mg disintegrat ing tablet 2022 023 [place] [id number], [address] [place], [address], 15:39:32 Patient TargetsNo targets recorded. Patient Instructions Encounter Date Encounter Id Patient Instructions Last Modified By Organization Details Last Modified Time 03/10/2023 [id number] nausea and vomiting: care instructions [place] [id number] Not available 03/10/2023 15:39:29 Try small amount [...] much worse, you should seek treatment immediately. [email or web address] Not available 03/10/2023 14:53:05 Reason for Referral None Reported. Results Created Date Observation Date Name Description Value Unit Range Abnormal Flag Note LastModifiedBy Organization Detail LastModifiedTime 03/10/2003/11/2023 URINE CULTU REFERNY NE urine culture, routine FINAL REPORT Not Available [facility] ([facility]) [address] [place], [address], 03/12/2023 06:07:45 03/10/20 23 03/11/2023 URINE CULTU REFERNY NE result 1 NO GROWTH Not Available [facility] ([facility]) [address] [facility], [place], [address], 03/12/2023 06:07:45 03/10/20 23 03/10/2023 pregn chadd test, urine Unknown Analyte Normal = Negati ve Not Available jens [address], [address], 03/10/2023 14:56:41 03/10/20 23 03/10/2023 pregn chadd test, urine Unknown Analyte negati ve Not Available jens [address], [address], 03/10/2023 14:56:41 03/10/20 23 03/10/2023 urina lysis , dipst ick Unknown Analyte Normal = light yellow Not Available ginger[address], [address], 03/10/2023 14:56:35 03/10/20 23 03/10/2023 urina lysis , dipst ick Unknown Analyte Normal = clear Not Available jens wood [address], [place], [address], 03/10/2023 14:56:35 03/10/20 23 03/10/2023 urina lysis , dipst ick Unknown Analyte Yellow Not Available [facility] [address], [place], [address], 03/10/2023 14:56:35 03/10/20 23 03/10/2023 urina lysis , dipst ick Unknown Analyte Cloudy Not Available [facility] [address], [place], [address], 03/10/2023 14:56:35 03/10/20 23 03/10/2023 urina lysis , dipst ick Unknown Analyte Normal = negati ve Not Available jens wood [address], [place], [address], 03/10/2023 14:56:35 03/10/20 23 03/10/2023 urina lysis , dipst ick Unknown Analyte Normal = Negati ve Not Available jens wood [address], [place], [address], 03/10/2023 14:56:35 03/10/20 23 03/10/2023 urina lysis , dipst ick Unknown Analyte Normal = Negati ve Not Available jens wood [address], [place], [address], 03/10/2023 14:56:35 03/10/20 23 03/10/2023 urina lysis , dipst ick Unknown Analyte Negati ve Not Available jens wood [address], [place], [address], 03/10/2023 14:56:35 03/10/2003/10/2023 urina lysis , dipst ick Unknown Analyte Negati ve Not Available jens wood [address], [place], [address], 03/10/2023 14:56:35 03/10/20 23 03/10/2023 urina lysis , dipst ick Unknown Analyte Negati ve Not Available jens wood [address], [place], [address], 03/10/2023 14:56:35 03/10/20 23 03/10/2023 urina lysis , dipst ick Unknown Analyte Normal = 1.010, 1.015, 1.020 Not Available jens wood [address], [place], [address], 03/10/2023 14:56:35 03/10/20 23 03/10/2023 urina lysis , dipst ick Unknown Analyte 1.020 Not Available bharath [address], [place], [address], 03/10/2023 14:56:35 03/10/20 23 03/10/2023 urina lysis , dipst ick Unknown Analyte Normal = Negati ve Not Available jens wood [address], [place], [address], 03/10/2023 14:56:35 03/10/20 23 03/10/2023 urina lysis , dipst ick Unknown Analyte Negati ve Not Available jens wood [address], [place], [address], 03/10/2023 14:56:35 03/10/20 23 03/10/2023 urina lysis , dipst ick Unknown Analyte Normal = 6.5, 7.0, 7.5, 8.0 Not Available jens wood [address], [place], [address], 03/10/2023 14:56:35 03/10/20 23 03/10/2023 urina lysis , dipst ick Unknown Analyte 8.5 Not Available [address], [place], [address], 03/10/2023 14:56:35 03/10/20 23 03/10/2023 urina lysis , dipst ick Unknown Analyte Normal = Negati ve Not Available jens [address], [place], [address], 03/10/2023 14:56:35 03/10/20 23 03/10/2023 urina lysis , dipst ick Unknown Analyte Negati ve Not Available [facility] [address], [place], [address], 03/10/2023 14:56:35 03/10/20 23 03/10/2023 urina lysis , dipst ick Unknown Analyte Normal = 0.2, 1.0 Not Available jens [address], [place], [address], 03/10/2023 14:56:35 03/10/20 23 03/10/2023 urina lysis , dipst ick Unknown Analyte 0.2 E.U./d L Not Available [facility] [address], [place], [address], 03/10/2023 14:56:35 03/10/20 23 03/10/2023 urina lysis , dipst ick Unknown Analyte Normal = Negati ve Not Available ginger[address], [place], [address], 03/10/2023 14:56:35 03/10/20 23 03/10/2023 urina lysis , dipst ick Unknown Analyte Negati ve Not Available [address] [facility] [address] [facility] [place], [address], 03/10/2023 14:56:35 03/10/2003/10/2023 urina lysis , dipst ick Unknown Analyte Normal = Negati ve Not Available [address] [place] [address] [facility] [place], [address], 03/10/2023 14:56:35 03/10/20 23 03/10/2023 urina lysis , dipst ick Unknown Analyte Trace Not Available [address] [place], [place] [address]bre[place] [address] [place], [address], 03/10/2023 14:56:35 Result Notes None recorded. Problems Name Problem SNOMED Code Status Onset Date Resolution Date Notes Provider Name and Address Organization Details Recorded Time Hypothyroidism 38776049 Active 2022 AINSLEY Rankin - [facility] [...] Last Updated DateTime 160.02 cm 21.6 kg/m2 50895.2 7 g 0 20 /min 98 % 98 % 82 /min 98.3 [degF] 110 mm[Hg] 70 mm[Hg] MYNOR VILLASENOR PA - [facility] 14:57:30 Social History Question Answer Notes LastModified by Organizat ion Details LastModified Time Tobacco Smoking Status Never Smoker MYNOR chang PA - [facility] 03/10/2023 14:56:08 What Is Your Level Of Alcohol Consumption? Occasional [email or web address] Information not available 03/10/2023 Do You Use Any Illicit Or Recreational Drugs? No [email or web address] Information not available 03/10/2023 Have You Recently Traveled Abroad? No [email or web address] Information not available 03/10/2023 Do You Or Have You Ever Used Any Other Forms Of Tobacco Or Nicotine? No [email or web address] Information not available 03/10/2023 Sex: Unknown Functional Status None recorded. Mental Status None recorded. Family History Relationship Description Onset Age of this Age Resolved Age Notes LastModified by Organization Details LastModified Time Father No current problems or disability [email or web address] Not available 03/10 14:55:40 Mother No current problems or disability [email or web address] Not available 03/10 14:55:40 Medical History No medical history recorded. Gynecological History Statement/Question Response Date of LMP 03/04/2023 Is there any chance of ? No Obstetrics History GPAL:G 0 P 0 0 0 0 Past Encounters Encounter ID Performer Location Encounter Start Date Encounter Closed Date Diagnosis/Indication Diagnosis SNOMED-CT Code Diagnosis ICD10 Code Diagnosis Note [id number] [address] [address] 08/17/2022 18:19:18 08/17/2022 20:01:55 [id number] Alex Taylor MD [address] [address] 03/10/2023 13:00:53 03/10/2023 15:46:16 Nausea and vomiting [id number] R11.2 Do not continue with Laxatives. Sometimes over use of laxatives can have the opposite effect and slow down the gastrointe stinal system requiring higher doses of laxatives for the same effectsDri nk plenty of fluids and take nausea medication ,There was no Xray available today but if continues an Xray woud be recommende d Abdominal pain 41553073 R10.9 If pain continues or worsens and [...] Simmons Member ID Guarantor Name 08/17/2022 1 [facility] Caro Downey [id number] Caro Downey 03/10/2023 1 [facility] [place] Caro Downey [id number] Caro Downey Notes Date Note Type Note [...] Taylor MD [address] [place], [address], [place] - [facility] 03/13/2023 12:59:51 OBGyn Episode No OBEpisode recorded.
== END 2024-12-07 10:27 | disposition home or self-care (01) ==
PROVIDERS: PCP Internal Medicine; Visit Provider Physician Assistant
DX: J11.1 Influenza due to unidentified influenza virus with other respiratory manifestations (principal)

== ENCOUNTER 2025-01-02 09:48 | Outpatient (AMB) | payer OTHER, SELFPAY ==
--- NOTE | 2025-01-02 10:09 | A.OFFVIS_ITS ---
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: No Information Interpreted: non-clinical & clinical Accompanied by: Spouse Allergies No Known Allergies Allergy (Verified 01/02/25 10:10) HPI Comments Details: Presenting for repeat co testing/colposcopy around 12 months from the diagnosis of MARGARET 2 in 11/09 05/09 Pap smear negative HPV positive, colpo biopsy ECC was negative 11/09 ascus HPV positive, colpo biopsy ECC showed 1 focus of suspicious for high- grade lesion PFSH Medical History Depo-Provera contraceptive status Encounter for screening Abnormal Pap smear of cervix Annual physical exam Hypothyroid Family History Father No problems noted. 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 Alcohol intake: current Alcohol intake frequency: does not drink Patient Tobacco Use Status: Never used Tobacco e-Cigarette/Vaping Use: Never Used service: No Current occupational status: employed Sexual orientation: Straight/Heterosexual Gender identity: Female Cognitive needs: No Hearing needs: No Vision needs: Yes Review of Systems Const All systems reviewed & are unremarkable except as noted in HPI and below Physical Exam General: Yes no CVA tenderness External Female Exam: normal external appearance and normal appearance of the urethra Speculum Exam - Vagina: normal appearance of the vagina, normal palpation, no lesions and no masses Speculum Exam - Cervix: normal appearance of the cervix, normal palpation, no lesions, no masses and nontender Bimanual exam- vagina & uterus: normal bimanual exam, normal palpation, uterine size normal, normal palpation, uterine shape normal, No Cervical tenderness present and non-tender Bimanual Exam- Adnexa, other: normal adnexae Back/Spine/Pelvis Back: no CVA tenderness Office Procedures Colposcopy Colposcopy: Pre-Procedure Counseling: Before beginning the procedure, I conducted comprehensive counseling with the patient. We thoroughly discussed the procedure itself, including its details, alternatives, and all associated risks. This included but not limited to the following complications such as bleeding, infection, and injury to the vagina, bladder, and vessels, as well as the potential need for transfusion with all its associated risks. Subsequently, the patient sign the consent. Pap smear result: History of MARGARET 2 for observation Urine test in office = Negative Procedure: During the procedure, the following steps were performed: A speculum was inserted, and acetic acid was applied. Colposcopy was conducted, allowing visualization of the transformation zone. Acetowhite lesions were identified at the 5+ 6+ 7+ 9+ 11+ 12+ 3 o'clock position. Cervical biopsies were obtained from the 5+ 6+ 7+ 9+ 11+ 12+ 3 o'clock position, followed by an endocervical curettage (ECC). Vaginoscopy of the upper vagina revealed no evidence of aceto-white lesions. Hemostasis was achieved using Monsel solution, and the patient tolerated the procedure well. Post-Procedure Instructions: The patient was advised to promptly contact the office or the after hours answering service or go to the emergency room if experiencing a temperature exceeding 100.4?F, abdominal pain, nausea/vomiting, or bleeding. Additionally, the patient was instructed to abstain from vaginal intercourse and bathtub use. The patient confirmed understanding of these instructions. Discharge Instructions: The patient was instructed to schedule a follow-up appointment in 2 weeks for further evaluation and management. Please note that this note was generated using a voice recognition program, and errors may have occurred during consulting technical director. [id number] of cervix including upper vagina with biopsy and ECC Procedure code (CPT) selection complete Assessment & Plan Assessment & Plan (1) MARGARET II (cervical intraepithelial neoplasia II): Comment: In 11/09 05/09 ascus/HPV positive, colpo biopsy negative Code(s): N87.1 - Moderate cervical dysplasia Category: Medical Plan: Co testing and colposcopy biopsy ECC done, see procedure note Orders: Orders AMB Colposcopy Today N87.1 - Moderate cervical dysplasia Coding Level of Care Code Est Pt Level 3 (24613) Procedure Only Diagnoses MARGARET II (cervical intraepithelial neoplasia II) N87.1 CPT Codes Colposcopy - CPT: 77316-Qpirqlzrj of cervix including upper vagina with biopsy and ECC ([id number])
[2025-01-02 10:10] VITALS: BMI 21.3
== END 2025-01-02 10:46 | disposition home or self-care (01) ==
LOC: HO.HWS 09:48
PROVIDERS: PCP Internal Medicine; Visit Provider Obstetrics & Gynecology
DX: N87.1 Moderate cervical dysplasia (principal)
CPT/HCPCS: 57454; 99213

== ENCOUNTER 2025-01-02 09:48 | Outpatient (REF) | payer OTHER, SELFPAY ==
[2025-01-09 14:06] LABS: HPV Genotype 16 Negative (Negative); HPV Genotype 18 Negative (Negative); HPV High Risk Negative (Negative)
== END 2025-01-02 09:49 | disposition home or self-care (01) ==
LOC: HO.LNP 09:48
PROVIDERS: PCP Internal Medicine; Visit Provider Obstetrics & Gynecology
DX: R87.610 Atypical squamous cells of undetermined significance on cytologic smear of cervix (ASC-US) (principal); R87.810 Cervical high risk human papillomavirus (HPV) DNA test positive
CPT/HCPCS: 57454; 87626; 88175; 88305; 99212

== ENCOUNTER → 2025-01-31 16:00 | Outpatient (REF) | payer OTHER, SELFPAY ==
--- OUTSIDE RECORDS SUMMARY | 2025-01-31 18:17 | XMS_ITS | Data Portability ---
Author Organization [facility], [address] Address [address] [place] [address] Assessment No assessment recorded. Plan of Treatment Reminders Order Date Submit Date Provider Last Modified By Organization Details Last Modified Time Details Appointments None recorded. Lab urinalysis, dipstick 2022 023 [place] [address] _bharath holm, [address] [place] [address], [place], [address], 15:39:29 test, urine 2022 023 [place] [address] _[facility], [address] [place] [address], [address], 15:39:29 culture, urine [address] [place] [facility], [address] [place] [address], [place], [address], 06:07:45 Referral None recorded. Procedures None recorded. Surgeries None recorded. Imaging None recorded. Medication Orders ondansetron 4 mg disintegrat ing tablet 2022 023 [place] [id number], [address] [place], [address], 15:39:32 Patient TargetsNo targets recorded. Patient Instructions Encounter Date Encounter Id Patient Instructions Last Modified By Organization Details Last Modified Time 03/10/2023 [id number] nausea and vomiting: care instructions [place] [address] Not available 03/10/2023 15:39:29 Try small amount [...] much worse, you should seek treatment immediately. [email or web address] Not available 03/10/2023 14:53:05 Reason for Referral None Reported. Results Created Date Observation Date Name Description Value Unit Range Abnormal Flag Note LastModifiedBy Organization Detail LastModifiedTime 03/10/2003/11/2023 URINE CULTU REFERNY NE urine culture, routine FINAL REPORT Not Available [facility] ([facility]) [address] [place], [address], 03/12/2023 06:07:45 03/10/20 23 03/11/2023 URINE CULTU REFERNY NE result 1 NO GROWTH Not Available [facility] ([facility]) [address] [facility], [place], [address], 03/12/2023 06:07:45 03/10/20 23 03/10/2023 pregn chadd test, urine Unknown Analyte Normal = Negati ve Not Available jens [address], [address], 03/10/2023 14:56:41 03/10/20 23 03/10/2023 pregn chadd test, urine Unknown Analyte negati ve Not Available jens [address], [address], 03/10/2023 14:56:41 03/10/20 23 03/10/2023 urina lysis , dipst ick Unknown Analyte Normal = light yellow Not Available ginger[address], [address], 03/10/2023 14:56:35 03/10/20 23 03/10/2023 urina lysis , dipst ick Unknown Analyte Normal = clear Not Available jens wood [address], [place], [address], 03/10/2023 14:56:35 03/10/20 23 03/10/2023 urina lysis , dipst ick Unknown Analyte Yellow Not Available [facility] [address], [place], [address], 03/10/2023 14:56:35 03/10/20 23 03/10/2023 urina lysis , dipst ick Unknown Analyte Cloudy Not Available [facility] [address], [place], [address], 03/10/2023 14:56:35 03/10/20 23 03/10/2023 urina lysis , dipst ick Unknown Analyte Normal = negati ve Not Available jens wood [address], [place], [address], 03/10/2023 14:56:35 03/10/20 23 03/10/2023 urina lysis , dipst ick Unknown Analyte Normal = Negati ve Not Available jens wood [address], [place], [address], 03/10/2023 14:56:35 03/10/20 23 03/10/2023 urina lysis , dipst ick Unknown Analyte Normal = Negati ve Not Available jens wood [address], [place], [address], 03/10/2023 14:56:35 03/10/20 23 03/10/2023 urina lysis , dipst ick Unknown Analyte Negati ve Not Available jens wood [address], [place], [address], 03/10/2023 14:56:35 03/10/2003/10/2023 urina lysis , dipst ick Unknown Analyte Negati ve Not Available jens wood [address], [place], [address], 03/10/2023 14:56:35 03/10/20 23 03/10/2023 urina lysis , dipst ick Unknown Analyte Negati ve Not Available jens wood [address], [place], [address], 03/10/2023 14:56:35 03/10/20 23 03/10/2023 urina lysis , dipst ick Unknown Analyte Normal = 1.010, 1.015, 1.020 Not Available jens wood [address], [place], [address], 03/10/2023 14:56:35 03/10/20 23 03/10/2023 urina lysis , dipst ick Unknown Analyte 1.020 Not Available bharath [address], [place], [address], 03/10/2023 14:56:35 03/10/20 23 03/10/2023 urina lysis , dipst ick Unknown Analyte Normal = Negati ve Not Available jens wood [address], [place], [address], 03/10/2023 14:56:35 03/10/20 23 03/10/2023 urina lysis , dipst ick Unknown Analyte Negati ve Not Available jens wood [address], [place], [address], 03/10/2023 14:56:35 03/10/20 23 03/10/2023 urina lysis , dipst ick Unknown Analyte Normal = 6.5, 7.0, 7.5, 8.0 Not Available jens wood [address], [place], [address], 03/10/2023 14:56:35 03/10/20 23 03/10/2023 urina lysis , dipst ick Unknown Analyte 8.5 Not Available [address], [place], [address], 03/10/2023 14:56:35 03/10/20 23 03/10/2023 urina lysis , dipst ick Unknown Analyte Normal = Negati ve Not Available jens [address], [place], [address], 03/10/2023 14:56:35 03/10/20 23 03/10/2023 urina lysis , dipst ick Unknown Analyte Negati ve Not Available [facility] [address], [place], [address], 03/10/2023 14:56:35 03/10/20 23 03/10/2023 urina lysis , dipst ick Unknown Analyte Normal = 0.2, 1.0 Not Available jens [address], [place], [address], 03/10/2023 14:56:35 03/10/20 23 03/10/2023 urina lysis , dipst ick Unknown Analyte 0.2 E.U./d L Not Available [facility] [address], [place], [address], 03/10/2023 14:56:35 03/10/20 23 03/10/2023 urina lysis , dipst ick Unknown Analyte Normal = Negati ve Not Available ginger[address], [place], [address], 03/10/2023 14:56:35 03/10/20 23 03/10/2023 urina lysis , dipst ick Unknown Analyte Negati ve Not Available [address] wood [facility] [address] [place], [address], 03/10/2023 14:56:35 03/10/2003/10/2023 urina lysis , dipst ick Unknown Analyte Normal = Negati ve Not Available [address] [place] [address] [place], [address], 03/10/2023 14:56:35 03/10/20 23 03/10/2023 urina lysis , dipst ick Unknown Analyte Trace Not Available [address] [place], [place] [address]breanna [address] [place], [address], 03/10/2023 14:56:35 Result Notes None recorded. Problems Name Problem SNOMED Code Status Onset Date Resolution Date Notes Provider Name and Address Organization Details Recorded Time Hypothyroidism 80872509 Active 2022 AINSLEY Rankin - [facility] [...] Last Updated DateTime 160.02 cm 21.6 kg/m2 38846.2 7 g 0 20 /min 98 % 98 % 82 /min 98.3 [degF] 110 mm[Hg] 70 mm[Hg] MYNOR VILLASENOR PA - [facility] 14:57:30 Social History Question Answer Notes LastModified by Organizat ion Details LastModified Time Tobacco Smoking Status Never Smoker MYNOR chang PA - [facility] 03/10/2023 14:56:08 What Is Your Level Of Alcohol Consumption? Occasional Information not available 03/10/2023 Do You Use Any Illicit Or Recreational Drugs? No [email or web address] Information not available 03/10/2023 Have You Recently Traveled Abroad? No [email or web address] Information not available 03/10/2023 Do You Or Have You Ever Used Any Other Forms Of Tobacco Or Nicotine? No [email or web address] Information not available 03/10/2023 Sex: Unknown Functional Status None recorded. Mental Status None recorded. Family History Relationship Description Onset Age of this Age Resolved Age Notes LastModified by Organization Details LastModified Time Father No current problems or disability [email or web address] Not available 03/10 14:55:40 Mother No current problems or disability Not available 03/10 14:55:40 Medical History No medical history recorded. Gynecological History Statement/Question Response Date of LMP 03/04/2023 Is there any chance of ? No Obstetrics History GPAL:G 0 P 0 0 0 0 Past Encounters Encounter ID Performer Location Encounter Start Date Encounter Closed Date Diagnosis/Indication Diagnosis SNOMED-CT Code Diagnosis ICD10 Code Diagnosis Note [id number] [address] [address] 08/17/2022 18:19:18 08/17/2022 20:01:55 [id number] [place] Taylor [place] [address] [address] 03/10/2023 13:00:53 03/10/2023 15:46:16 Nausea and vomiting 93510238 R11.2 Do not continue with Laxatives. Sometimes over use of laxatives can have the opposite effect and slow down the gastrointe stinal system requiring higher doses of laxatives for the same effectsDri nk plenty of fluids and take nausea medication ,There was no Xray available today but if continues an Xray woud be recommende d Abdominal pain 86682930 R10.9 If pain continues or worsens and [...] Simmons Member ID Guarantor Name 08/17/2022 1 EAST - DOS PRIOR TO 2024 - [facility] - PRIME () Caro Downey [id number] Caro Downey 03/10/2023 1 EAST - DOS PRIOR TO 2024 - [facility] - PRIME () Caro Downey [id number] Caro Downey Notes Date Note Type Note [...] 3 days ago. Alex Taylor MD [address] [facility] [place], [address], [place] - [facility] 03/13/2023 12:59:51 OBGyn Episode No OBEpisode recorded.
== END ==
LOC: HO.SL 16:00
PROVIDERS: PCP Internal Medicine; Visit Provider Internal Medicine
DX: G47.30 Sleep apnea, unspecified (principal)
CPT/HCPCS: 95806

== ENCOUNTER 2025-02-05 09:53 | Outpatient (AMB) | payer OTHER, SELFPAY ==
--- NOTE | 2025-02-05 09:54 | A.OFFVIS_ITS ---
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 Endocervical curettage: Insufficient material for endocervical evaluation. B. Cervix, 3:00, biopsy: Rare endocervical glandular epithelial cells, insufficient for cervical evaluation. C. Cervix, 5:00, biopsy: Endocervical glandular mucosa with marked inflammation; negative for dysplasia; no squamous component present. D. Cervix, 6:00, biopsy: Endocervical glandular mucosa with marked inflammation; negative for dysplasia; no squamous component present. E. Cervix, 7:00, biopsy: Minute fragment of squamous and endocervical glandular mucosa with marked inflammation and focal squamous atypia suspicious for low grade intraepithelial lesion. F. Cervix, 9:00, biopsy: Endocervical glandular mucosa and scant squamous mucosa with marked inflammation; negative for dysplasia. G. Cervix, 11:00, biopsy: Endocervical glandular mucosa with inflammation; negative for dysplasia; no squamous component present. H. Cervix, 12:00, biopsy: Endocervical glandular mucosa with inflammation; negative for dysplasia; no squamous component present. Comment: The patient's previous atypical Pap test ([id number]) concurs with the current biopsy COUNT INCLUDES THE [facility] Medical History (Updated 02/05/25 @ 09:59 by Jeremy Magaña MD) Depo-Provera contraceptive status Encounter for screening Abnormal Pap smear of cervix Annual physical exam Hypothyroid Family History Father No problems noted. 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 Alcohol intake: current Alcohol intake frequency: does not drink Patient Tobacco Use Status: Never used Tobacco e-Cigarette/Vaping Use: Never Used service: No Current occupational status: employed Sexual orientation: Straight/Heterosexual Gender identity: Female Cognitive needs: No Hearing needs: No Vision needs: Yes Review of Systems Const All systems reviewed & are unremarkable except as noted in HPI and below Reports as per HPI and Reports no additional complaints GI Reports no additional complaints Reports no additional complaints Telehealth Telehealth Telehealth Platform: Telephone Location of provider rendering services: practice address Location of patient: address on file Patient Identification confirmed using: Name, : Yes Telehealth method: video Patient verbally consented to treatment: Yes Patient verbally consented to billing insurance company: Yes Patient informed of any privacy concerns related to visit: Yes Minutes spent on Phone/Video with Pt.: 4 Assessment & Plan Assessment & Plan (1) MARGARET II (cervical intraepithelial neoplasia II): Comment: In 11/09 05/09 ascus/HPV positive, colpo biopsy negative 01/08 co testing negative, colpo biopsy ECC, 1 area? MARGARET 1 Code(s): N87.1 - Moderate cervical dysplasia Category: Medical Plan: Discussed with the patient the results of the co testing in colpo biopsy ECC, in addition to its sensitivity, specificity, false-positive and false-negative rate. Per ASCCP guidelines since 2 consecutive evaluation both were less than ascus-H cytology and less than MARGARET 2 histology, the next step is co testing in 1 year Recommended the patient to schedule an 1 year co testing appointment. All questions answered, the patient verbalized understanding I spent a total of 20 minutes reviewing the chart, talking to the patient via video and documenting in the medical record. Coding Level of Care Code Tele Est Pt Level 3 (01054) Diagnoses MARGARET II (cervical intraepithelial neoplasia II) N87.1
--- OUTSIDE RECORDS SUMMARY | 2025-02-05 11:06 | XMS_ITS | Data Portability ---
Author Organization [facility] [address] Address [address] [place] [address] Assessment No assessment recorded. Plan of Treatment Reminders Order Date Submit Date Provider Last Modified By Organization Details Last Modified Time Details Appointments None recorded. Lab urinalysis, dipstick 2022 023 [place] [address] _bharath holm, [address] [place] [address], [place], [address], 15:39:29 test, urine 2022 023 [place] [address] [facility], [address] [place] [address], [address], 15:39:29 culture, urine 2022 023 [place] [facility], [address] [place] [address], [place], [address], 06:07:45 Referral None recorded. Procedures None recorded. Surgeries None recorded. Imaging None recorded. Medication Orders ondansetron 4 mg disintegrat ing tablet 2022 023 [place] [id number], [address] [facility] [place], [address], 15:39:32 Patient TargetsNo targets recorded. Patient Instructions Encounter Date Encounter Id Patient Instructions Last Modified By Organization Details Last Modified Time 03/10/2023 [id number] nausea and vomiting: care instructions [place] [address] Not available 03/10/2023 15:39:29 Try small amount [...] much worse, you should seek treatment immediately. [email or web address] Not available 03/10/2023 14:53:05 Reason for Referral None Reported. Results Created Date Observation Date Name Description Value Unit Range Abnormal Flag Note LastModifiedBy Organization Detail LastModifiedTime 03/10/2003/11/2023 URINE CULTU REFERNY NE urine culture, routine FINAL REPORT Not Available [facility] ([facility]) [address] [place], [address], 03/12/2023 06:07:45 03/10/20 23 03/11/2023 URINE CULTU REFERNY NE result 1 NO GROWTH Not Available [facility] ([facility]) [address] [facility], [place], [address], 03/12/2023 06:07:45 03/10/20 23 03/10/2023 pregn chadd test, urine Unknown Analyte Normal = Negati ve Not Available jens [address], [address], 03/10/2023 14:56:41 03/10/20 23 03/10/2023 pregn chadd test, urine Unknown Analyte negati ve Not Available jens [address], [address], 03/10/2023 14:56:41 03/10/20 23 03/10/2023 urina lysis , dipst ick Unknown Analyte Normal = light yellow Not Available ginger[address], [address], 03/10/2023 14:56:35 03/10/20 23 03/10/2023 urina lysis , dipst ick Unknown Analyte Normal = clear Not Available jens wood [address], [place], [address], 03/10/2023 14:56:35 03/10/20 23 03/10/2023 urina lysis , dipst ick Unknown Analyte Yellow Not Available [facility] [address], [place], [address], 03/10/2023 14:56:35 03/10/20 23 03/10/2023 urina lysis , dipst ick Unknown Analyte Cloudy Not Available [facility] [address], [place], [address], 03/10/2023 14:56:35 03/10/20 23 03/10/2023 urina lysis , dipst ick Unknown Analyte Normal = negati ve Not Available jens wood [address], [place], [address], 03/10/2023 14:56:35 03/10/20 23 03/10/2023 urina lysis , dipst ick Unknown Analyte Normal = Negati ve Not Available jens wood [address], [place], [address], 03/10/2023 14:56:35 03/10/20 23 03/10/2023 urina lysis , dipst ick Unknown Analyte Normal = Negati ve Not Available jens wood [address], [place], [address], 03/10/2023 14:56:35 03/10/20 23 03/10/2023 urina lysis , dipst ick Unknown Analyte Negati ve Not Available jens wood [address], [place], [address], 03/10/2023 14:56:35 03/10/2003/10/2023 urina lysis , dipst ick Unknown Analyte Negati ve Not Available jens wood [address], [place], [address], 03/10/2023 14:56:35 03/10/20 23 03/10/2023 urina lysis , dipst ick Unknown Analyte Negati ve Not Available jens wood [address], [place], [address], 03/10/2023 14:56:35 03/10/20 23 03/10/2023 urina lysis , dipst ick Unknown Analyte Normal = 1.010, 1.015, 1.020 Not Available jens wood [address], [place], [address], 03/10/2023 14:56:35 03/10/20 23 03/10/2023 urina lysis , dipst ick Unknown Analyte 1.020 Not Available bharath [address], [place], [address], 03/10/2023 14:56:35 03/10/20 23 03/10/2023 urina lysis , dipst ick Unknown Analyte Normal = Negati ve Not Available jens wood [address], [place], [address], 03/10/2023 14:56:35 03/10/20 23 03/10/2023 urina lysis , dipst ick Unknown Analyte Negati ve Not Available jens wood [address], [place], [address], 03/10/2023 14:56:35 03/10/20 23 03/10/2023 urina lysis , dipst ick Unknown Analyte Normal = 6.5, 7.0, 7.5, 8.0 Not Available jens wood [address], [place], [address], 03/10/2023 14:56:35 03/10/20 23 03/10/2023 urina lysis , dipst ick Unknown Analyte 8.5 Not Available [address], [place], [address], 03/10/2023 14:56:35 03/10/20 23 03/10/2023 urina lysis , dipst ick Unknown Analyte Normal = Negati ve Not Available jens [address], [place], [address], 03/10/2023 14:56:35 03/10/20 23 03/10/2023 urina lysis , dipst ick Unknown Analyte Negati ve Not Available [facility] [address], [place], [address], 03/10/2023 14:56:35 03/10/20 23 03/10/2023 urina lysis , dipst ick Unknown Analyte Normal = 0.2, 1.0 Not Available jens [address], [place], [address], 03/10/2023 14:56:35 03/10/20 23 03/10/2023 urina lysis , dipst ick Unknown Analyte 0.2 E.U./d L Not Available [facility] [address], [place], [address], 03/10/2023 14:56:35 03/10/20 23 03/10/2023 urina lysis , dipst ick Unknown Analyte Normal = Negati ve Not Available ginger[address], [place], [address], 03/10/2023 14:56:35 03/10/20 23 03/10/2023 urina lysis , dipst ick Unknown Analyte Negati ve Not Available [address]jens wood [facility] [address] [place], [address], 03/10/2023 14:56:35 03/10/2003/10/2023 urina lysis , dipst ick Unknown Analyte Normal = Negati ve Not Available [address] [place] [address] [place], [address], 03/10/2023 14:56:35 03/10/20 23 03/10/2023 urina lysis , dipst ick Unknown Analyte Trace Not Available [address] [place], [place] [address]breanna [address] [place], [address], 03/10/2023 14:56:35 Result Notes None recorded. Problems Name Problem SNOMED Code Status Onset Date Resolution Date Notes Provider Name and Address Organization Details Recorded Time Hypothyroidism 18028398 Active 2022 AINSLEY Rankin - [facility] [...] Last Updated DateTime 160.02 cm 21.6 kg/m2 77247.2 7 g 0 20 /min 98 % 98 % 82 /min 98.3 [degF] 110 mm[Hg] 70 mm[Hg] MYNOR VILLASENOR PA - [facility] 14:57:30 Social History Question Answer Notes LastModified by Organizat ion Details LastModified Time Tobacco Smoking Status Never Smoker MYNOR chang PA - [facility] 03/10/2023 14:56:08 What Is Your Level Of Alcohol Consumption? Occasional Information not available 03/10/2023 Do You Use Any Illicit Or Recreational Drugs? No [email or web address] Information not available 03/10/2023 Have You Recently Traveled Abroad? No [email or web address] Information not available 03/10/2023 Do You Or Have You Ever Used Any Other Forms Of Tobacco Or Nicotine? No [email or web address] Information not available 03/10/2023 Sex: Unknown Functional Status None recorded. Mental Status None recorded. Family History Relationship Description Onset Age of this Age Resolved Age Notes LastModified by Organization Details LastModified Time Father No current problems or disability [email or web address] Not available 03/10 14:55:40 Mother No current problems or disability [email or web address] Not available 03/10 14:55:40 Medical History No medical history recorded. Gynecological History Statement/Question Response Date of LMP 03/04/2023 Is there any chance of ? No Obstetrics History GPAL:G 0 P 0 0 0 0 Past Encounters Encounter ID Performer Location Encounter Start Date Encounter Closed Date Diagnosis/Indication Diagnosis SNOMED-CT Code Diagnosis ICD10 Code Diagnosis Note [id number] [place] [address] [address] 08/17/2022 18:19:18 08/17/2022 20:01:55 [id number] Alex Taylor [place] [address] [address] 03/10/2023 13:00:53 03/10/2023 15:46:16 Nausea and vomiting 34799758 R11.2 Do not continue with Laxatives. Sometimes over use of laxatives can have the opposite effect and slow down the gastrointe stinal system requiring higher doses of laxatives for the same effectsDri nk plenty of fluids and take nausea medication ,There was no Xray available today but if continues an Xray woud be recommende d Abdominal pain 43732616 R10.9 If pain continues or worsens and [...] - [employer] - PRIME () Caro Downey [id number] Caro Downey 03/10/2023 1 EAST - DOS PRIOR TO 2024 - [employer] - PRIME () Caro Downey [id number] Caro Downey Notes Date Note Type Note [...] 3 days ago. Alex Taylor MD [address] [facility] [place], [address], [place] - [facility] 03/13/2023 12:59:51 OBGyn Episode No OBEpisode recorded.
== END 2025-02-05 10:12 | disposition home or self-care (01) ==
LOC: HO.HWS 09:53
PROVIDERS: PCP Internal Medicine; Visit Provider Obstetrics & Gynecology
DX: N87.1 Moderate cervical dysplasia (principal)
CPT/HCPCS: 99213

== ENCOUNTER → 2025-02-05 09:53 | Outpatient (BNVA) | payer OTHER, SELFPAY | PROVIDERS: PCP Internal Medicine; Visit Provider Obstetrics & Gynecology ==

== ENCOUNTER → 2025-02-05 16:04 | Outpatient (BNV) | payer OTHER, SELFPAY | PROVIDERS: PCP Internal Medicine; Visit Provider Internal Medicine | DX: R06.83 Snoring (principal) | CPT/HCPCS: 95806 ==

== ENCOUNTER 2025-02-20 13:10 | Outpatient (AMB) | payer OTHER, SELFPAY ==
--- NOTE | 2025-02-20 13:30 | A.OFFPC_ITS ---
Vital Signs 02/20/25 13:31 Height 5 ft 3 in Weight 118 lb BMI 20.9 BP 108/68 Blood Pressure Location Rt brachial Position Sitting Respiration 18 Pulse 85 Pulse Source Pulse Oximeter Temp 99.2 F Temp Source Oral Pulse Oximetry (%) 98 Oxygen Delivery Method Room Air Intake Visit Reasons: Follow up on neck and ear pain Intake Note: Pt is here today for a follow up visit. Allergies No Known Allergies Allergy (Verified 02/20/25 13:38) Medication List - Last Reconciled 02/20/25 by Clarissa Grider MD baclofen 10 mg PO BEDTIME fluticasone propionate 50 mcg/actuation 1 spray intranasal Q12H levothyroxine 100 mcg PO DAILY meclizine 25 mg PO BID PRN meloxicam 15 mg PO DAILY sertraline 50 mg PO QAM trazodone mg PO BEDTIME Tobacco use date assessed: 12/05/24 Dental Screening Dental Screen Date: 12/05/24 HPI Follow up on neck and ear pain HPI Details Pt c/o neck pain and stiffness for 1 month, worse when trying to turn her head to the side. 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 She denies weakness or numbness in upper extremities PFSH Medical History Depo-Provera contraceptive status Encounter for screening Abnormal Pap smear of cervix Annual physical exam Hypothyroid Family History Father No problems noted. 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 Alcohol intake: current Alcohol intake frequency: does not drink Patient Tobacco Use Status: Never used Tobacco e-Cigarette/Vaping Use: Never Used service: No Current occupational status: employed Sexual orientation: Straight/Heterosexual Gender identity: Female Cognitive needs: No Hearing needs: No Vision needs: Yes Questionnaire Thrive Questionnaire Date Thrive assessed: 12/02/24 I am a: Patient What is your living situation today?: I have a steady place to live Within the past 12 months, did the food you bought not last and you didn't have the money to get more?: Never true Within the past 12 months, did you worry whether your food would run out before you got money to buy more?: Never true Do you have trouble paying for medicines?: No Do you have trouble getting transportation to medical appointments?: No Do you have trouble paying your heating and electricity bill?: No Do you have trouble taking care of your child, family member or friend?: No Do you have trouble with day-to-day activities such as bathing, preparing meals, shopping, managing finances, etc.?: No Are you currently unemployed and looking for a job?: No Are you interested in more education?: No Please select the resources that you would like help with: None Currently or been in a relationship where the following occur: No concerns reported THRIVE Score: 0 MELE-7 AMB Questionnaire MELE-7 Date MELE - 7 assessed: 12/05/24 Source: Developed by Drs. Santosh Pyle, Mary Jo Escobar, Julian Centeno and colleagues, with an educational to from [employer]. Review of Systems Const All systems reviewed & are unremarkable except as noted in HPI and below Eyes Reports no additional complaints ENT Reports no additional complaints Card Reports no additional complaints Resp Reports no additional complaints GI Reports no additional complaints Reports no additional complaints Musc Reports no additional complaints Physical exam (Primary Care) Vital Signs: Last Vital Signs Temp 99.2 F 02/20/25 13:31 Pulse 85 02/20/25 13:31 Resp 18 02/20/25 13:31 BP 108/68 02/20/25 13:31 Pulse Ox 98 02/20/25 13:31 Oxygen Delivery Method Room Air 02/20/25 13:31 BMI result Body Mass Index 20.9 Tobacco/Smoking Status: Tobacco use Status Tobacco use date assessed 12/05/24 02/20/25 13:38 Patient Tobacco Use Status Never used Tobacco 02/20/25 13:38 e-Cigarette/Vaping Use Never Used 02/20/25 13:38 Thrive Assessment: Date of Thrive Assessment Date Thrive assessed 12/02/24 02/20/25 13:38 Currently or been in a relationship where the following occur: No concerns reported Const General: no acute distress HENMT Head: Yes normal to inspection Ears: TM's normal bilaterally Face and sinus: Yes normal facial exam Eyes General: appearance normal, both eyes and all related structures Neck Other: there is a full range of motion. Paraspinal tenderness in lower cervical region bilaterally Neck: Yes no lymphadenopathy and Yes supple Resp Effort & Inspection: normal respiratory effort Auscultation: clear to auscultation bilaterally Cardio Rhythm: regular rhythm Heart sounds: S1 normal heart sound present and S2 normal heart sound present Coding Level of Care Code Est Pt Level 3 (47204) Diagnoses Neck pain M54.2 Assessment & Plan Assessment & Plan (1) Neck pain: Code(s): M54.2 - Cervicalgia Category: Medical Plan: range of motion neck exercises discussed with the patient. Patient was advised to position computer screen at the eye level to prevent neck strain. meloxicam and baclofen a prescribed for 10 days Medications: New baclofen 10 mg PO BEDTIME 10 tabs 0RF meloxicam 15 mg PO DAILY 10 tabs 0RF
[2025-02-20 13:31] VITALS: BP 108/68; PULSE 85; RESP 18; TEMP 37.3; O2SAT 98; BMI 20.9
--- OUTSIDE RECORDS SUMMARY | 2025-02-20 14:25 | XMS_ITS | Data Portability ---
Author Organization [facility] Address [address] [place] [address] Assessment No assessment recorded. Plan of Treatment Reminders Order Date Submit Date Provider Last Modified By Organization Details Last Modified Time Details Appointments None recorded. Lab urinalysis, dipstick 2022 023 [place] [id number] _bharath holm, [address] [place] [address], [place], [address], 15:39:29 test, urine 2022 023 [place] [address] [facility], [address] [place] [address], [address], 15:39:29 culture, urine 2022 023 [place] [facility], [address] [place] [address], [place], [address], 06:07:45 Referral None recorded. Procedures None recorded. Surgeries None recorded. Imaging None recorded. Medication Orders ondansetron 4 mg disintegrat ing tablet 2022 023 [place] [id number], [address] [place], [address], 15:39:32 Patient TargetsNo targets recorded. Patient Instructions Encounter Date Encounter Id Patient Instructions Last Modified By Organization Details Last Modified Time 03/10/2023 [id number] nausea and vomiting: care instructions [email or web address] [id number] Not available 03/10/2023 15:39:29 Try small amount [...] much worse, you should seek treatment immediately. [email or web address] Not available 03/10/2023 14:53:05 Reason for Referral None Reported. Results Created Date Observation Date Name Description Value Unit Range Abnormal Flag Note LastModifiedBy Organization Detail LastModifiedTime 03/10/2003/11/2023 URINE CULTU REFERNY NE urine culture, routine FINAL REPORT Not Available [facility] ([facility]) [address] [place], [address], 03/12/2023 06:07:45 03/10/20 23 03/11/2023 URINE CULTU REFERNY NE result 1 NO GROWTH Not Available [facility] ([facility]) [address] [facility], [place], [address], 03/12/2023 06:07:45 03/10/20 23 03/10/2023 pregn chadd test, urine Unknown Analyte Normal = Negati ve Not Available jens [address], [address], 03/10/2023 14:56:41 03/10/20 23 03/10/2023 pregn chadd test, urine Unknown Analyte negati ve Not Available jens [address], [address], 03/10/2023 14:56:41 03/10/20 23 03/10/2023 urina lysis , dipst ick Unknown Analyte Normal = light yellow Not Available ginger[address], [address], 03/10/2023 14:56:35 03/10/20 23 03/10/2023 urina lysis , dipst ick Unknown Analyte Normal = clear Not Available jens wood [address], [place], [address], 03/10/2023 14:56:35 03/10/20 23 03/10/2023 urina lysis , dipst ick Unknown Analyte Yellow Not Available [facility] [address], [place], [address], 03/10/2023 14:56:35 03/10/20 23 03/10/2023 urina lysis , dipst ick Unknown Analyte Cloudy Not Available [facility] [address], [place], [address], 03/10/2023 14:56:35 03/10/20 23 03/10/2023 urina lysis , dipst ick Unknown Analyte Normal = negati ve Not Available jens wood [address], [place], [address], 03/10/2023 14:56:35 03/10/20 23 03/10/2023 urina lysis , dipst ick Unknown Analyte Normal = Negati ve Not Available jens wood [address], [place], [address], 03/10/2023 14:56:35 03/10/20 23 03/10/2023 urina lysis , dipst ick Unknown Analyte Normal = Negati ve Not Available jens wood [address], [place], [address], 03/10/2023 14:56:35 03/10/20 23 03/10/2023 urina lysis , dipst ick Unknown Analyte Negati ve Not Available jens wood [address], [place], [address], 03/10/2023 14:56:35 03/10/2003/10/2023 urina lysis , dipst ick Unknown Analyte Negati ve Not Available jens wood [address], [place], [address], 03/10/2023 14:56:35 03/10/20 23 03/10/2023 urina lysis , dipst ick Unknown Analyte Negati ve Not Available jens wood [address], [place], [address], 03/10/2023 14:56:35 03/10/20 23 03/10/2023 urina lysis , dipst ick Unknown Analyte Normal = 1.010, 1.015, 1.020 Not Available jens wood [address], [place], [address], 03/10/2023 14:56:35 03/10/20 23 03/10/2023 urina lysis , dipst ick Unknown Analyte 1.020 Not Available bharath [address], [place], [address], 03/10/2023 14:56:35 03/10/20 23 03/10/2023 urina lysis , dipst ick Unknown Analyte Normal = Negati ve Not Available jens wood [address], [place], [address], 03/10/2023 14:56:35 03/10/20 23 03/10/2023 urina lysis , dipst ick Unknown Analyte Negati ve Not Available jens wood [address], [place], [address], 03/10/2023 14:56:35 03/10/20 23 03/10/2023 urina lysis , dipst ick Unknown Analyte Normal = 6.5, 7.0, 7.5, 8.0 Not Available jens wood [address], [place], [address], 03/10/2023 14:56:35 03/10/20 23 03/10/2023 urina lysis , dipst ick Unknown Analyte 8.5 Not Available [address], [place], [address], 03/10/2023 14:56:35 03/10/20 23 03/10/2023 urina lysis , dipst ick Unknown Analyte Normal = Negati ve Not Available jens [address], [place], [address], 03/10/2023 14:56:35 03/10/20 23 03/10/2023 urina lysis , dipst ick Unknown Analyte Negati ve Not Available [facility] [address], [place], [address], 03/10/2023 14:56:35 03/10/20 23 03/10/2023 urina lysis , dipst ick Unknown Analyte Normal = 0.2, 1.0 Not Available jens [address], [place], [address], 03/10/2023 14:56:35 03/10/20 23 03/10/2023 urina lysis , dipst ick Unknown Analyte 0.2 E.U./d L Not Available [facility] [address], [place], [address], 03/10/2023 14:56:35 03/10/20 23 03/10/2023 urina lysis , dipst ick Unknown Analyte Normal = Negati ve Not Available ginger[address], [place], [address], 03/10/2023 14:56:35 03/10/20 23 03/10/2023 urina lysis , dipst ick Unknown Analyte Negati ve Not Available [address] [facility] [address] [facility] [place], [address], 03/10/2023 14:56:35 03/10/2003/10/2023 urina lysis , dipst ick Unknown Analyte Normal = Negati ve Not Available [address] [place] [address] [facility] [place], [address], 03/10/2023 14:56:35 03/10/20 23 03/10/2023 urina lysis , dipst ick Unknown Analyte Trace Not Available [address] [place], [place] [address] [address] [place], [address], 03/10/2023 14:56:35 Result Notes None recorded. Problems Name Problem SNOMED Code Status Onset Date Resolution Date Notes Provider Name and Address Organization Details Recorded Time Hypothyroidism 77186176 Active 2022 AINSLEY Rankin - [facility] [...] Last Updated DateTime 160.02 cm 21.6 kg/m2 78341.2 7 g 0 20 /min 98 % 98 % 82 /min 98.3 [degF] 110 mm[Hg] 70 mm[Hg] MYNOR SCHMITZ - [facility] 14:57:30 Social History Question Answer Notes LastModified by Organizat ion Details LastModified Time Tobacco Smoking Status Never Smoker MYNOR chang PA [facility] 03/10/2023 14:56:08 What Is Your Level Of Alcohol Consumption? Occasional [email or web address] Information not available 03/10/2023 Do You Use Any Illicit Or Recreational Drugs? No [email or web address] Information not available 03/10/2023 Have You Recently Traveled Abroad? No Information not available 03/10/2023 Do You Or Have You Ever Used Any Other Forms Of Tobacco Or Nicotine? No [email or web address] Information not available 03/10/2023 Sex: Unknown Functional Status None recorded. Mental Status None recorded. Family History Relationship Description Onset Age of this Age Resolved Age Notes LastModified by Organization Details LastModified Time Father No current problems or disability Not available 03/10 14:55:40 Mother No current problems or disability [email or web address] Not available 03/10 14:55:40 Medical History No medical history recorded. Gynecological History Statement/Question Response Date of LMP 03/04/2023 Is there any chance of ? No Obstetrics History GPAL:G 0 P 0 0 0 0 Past Encounters Encounter ID Performer Location Encounter Start Date Encounter Closed Date Diagnosis/Indication Diagnosis SNOMED-CT Code Diagnosis ICD10 Code Diagnosis Note [id number] [facility] [address] [address] 08/17/2022 18:19:18 08/17/2022 20:01:55 [id number] Alex Taylor MD _[address] [address] 03/10/2023 13:00:53 03/10/2023 15:46:16 Nausea and vomiting 11209001 R11.2 Do not continue with Laxatives. Sometimes over use of laxatives can have the opposite effect and slow down the gastrointe stinal system requiring higher doses of laxatives for the same effectsDri nk plenty of fluids and take nausea medication ,There was no Xray available today but if continues an Xray woud be recommende d Abdominal pain 06321785 R10.9 If pain continues or worsens and [...] Recorded Advance Directives Directive None Recorded Payers Insurance Date Sequence Insurance Name Policy Number Policy Simmons Covered Member ID Simmons Member ID Guarantor Name 03/10/[address] [facility] () Caro Downey [id number] Caro Downey Notes Date Note Type Note [...] Taylor MD [address] [place], [address], [place] - [facility] 03/13/2023 12:59:51 OBGyn Episode No OBEpisode recorded.
--- OUTSIDE RECORDS SUMMARY | 2025-02-20 14:25 | XMS_ITS ---
[facility] Unknown Care Team Organization Name Specialty Phone Email Start Date End [facility] 02/07/2025
--- OUTSIDE RECORDS SUMMARY | 2025-02-20 14:25 | XMS_ITS | Clinical Summary ---
Author Organization [facility] Address [address] [place] [address] Care Team Providers Care Casing Flusher Name Role Phone Unavailable Primary Care Provider Unavailabl e Social History Tobacco Use Types Packs/Day Years Used Date Smoking Tobacco: Never Assessed Comments Unknown Sex and Gender Information Value Date Recorded Sex Assigned at Not on file Legal Sex Female 3:22 PM EDT Gender Identity Not on file Sexual Orientation Not on file Plan of Treatment Upcoming Encounters Date Type Department Care Team (Late st Contact Info) Description 03/19/2025 2:00 PM EDT Office Visit [facility] Department of Internal Medicine [place] [address] [place] [id number] Michele Hwang APRN [address] [place] [address] Health Maintenance Due Date Last Done Comments Hepatitis C Virus Screening 1994 HIV Screening 2007 DTaP/Tdap/Td Vaccines (1 - Tdap) 2013 Hepatitis B Vaccines (1 of 3 - 19+ 3-dose series) 2013 Pap Smear (Ages 21-65) 2015 Influenza Vaccine 05/17/2024 COVID-19 Vaccine ( - 2023-2 5 season) 2024 HPV Vaccines Aged Out No longer eligi ble based on patient's age to complete this topic Pneumococcal Vaccine: Pediat rohit (0-5 Years) and At-Risk Patients (6 to 49 Years) Aged Out No longer eligible b ased on patient's age to complete this topic Insurance MERGED WITH [facility]
== END 2025-02-20 15:40 | disposition home or self-care (01) ==
LOC: HO.HMCC 13:11
PROVIDERS: PCP Internal Medicine; Visit Provider Internal Medicine
DX: M54.2 Cervicalgia (principal)

== ENCOUNTER → 2025-02-20 13:10 | Outpatient (BNVA) | payer OTHER, SELFPAY | PROVIDERS: PCP Internal Medicine; Visit Provider Internal Medicine | DX: M54.2 Cervicalgia (principal) | CPT/HCPCS: 99212 ==

== ENCOUNTER 2025-03-01 08:58 | Outpatient (RCR) | payer OTHER, SELFPAY ==
[2025-03-01 09:05] VITALS: BP 100/62; PULSE 88; O2SAT 97
--- NOTE | 2025-03-01 10:18 | MHC.PT.EP ---
[facility] [place] Office [place] Office [place] Office [address] [phone] F: [phone] F: [phone] F: [phone] F: [phone] Physical Therapy Plan of Care Date of Evaluation: 03/01/25 Date of Surgery: Diagnosis: This is a 29 yo female presenting to skilled PT with a script for BPPV. Assessment: This is a 29 yo female presenting to skilled PT with a script for BPPV. Patient has had ongoing symptoms since Sep 2024 after a viral infection and multiple ear infections. Her symptoms vary from once a week to a couple times a week however are better since starting. The last time she had symptoms was one week ago. Her symptoms last about an hour when she gets them. She takes meclizine which does not appear to help. Her symptoms are described as dizzy, like I'm moving , nauseous. She cannot describe anything that triggers them and they can occur at rest. She has not had any imaging. She is also complaining of neck pain today at [facility]. Examination shows + oculomotor tests with saccades, (-) VBI B but pain with cervical AROM extension. She was (-) for BPPV B in hallpike and roll test. Balance was normal. S/S are not consistent with BPPV (but may have been BPPV that resolved) however her symptoms seem more consistent with cervicogenic dizziness. She was educated on getting a new order as she would benefit from PT 2x/wk for 4wks to address impairments, implement HEP and optimize functional mobility for her neck instead. Frequency and Duration: The patient will be seen Short Term Goals: NA Chcf Goals: (if symptoms return) I in HEP Negative in all 6 canals for dizziness and nystagmus Return to normal gait pattern without reports of LOB due to dizziness Treatment Plan: Modalities to reduce pain, spasms and effusion. Manual therapy to restore motion and function. Therapeutic exercise to improve strength and flexibility. Neuromuscular re-education for posture and balance. Therapeutic activities to return to functional activities of daily living. Electronically signed by: Bere Polo PT Please sign and return to therapist. Thank you for your referral.
--- NOTE | 2025-04-02 08:22 | MHC.PT.DC ---
[facility] [place] [facility] [place] [facility] [place] [facility] [address] Kody Bishop [address] [phone] F: [phone] F: [phone] F: [phone] F: [phone] Physical Therapy Discharge Report Diagnosis: This is a 29 yo female presenting to skilled PT with a script for BPPV. Date of Surgery: Date of Evaluation: 03/01/25 Date of Discharge: 04/02/25 Treatments to Date: 0 Cancellations to Date: 0 No Shows to Date: Discharge Status: Recommend MD Follow-up Discharge Summary: This is a 29 yo female presenting to skilled PT with a script for BPPV. Patient has had ongoing symptoms since Sep 2024 after a viral infection and multiple ear infections. Her symptoms vary from once a week to a couple times a week however are better since starting. The last time she had symptoms was one week ago. Her symptoms last about an hour when she gets them. She takes meclizine which does not appear to help. Her symptoms are described as dizzy, like I'm moving , nauseous. She cannot describe anything that triggers them and they can occur at rest. She has not had any imaging. She is also complaining of neck pain today at eval. Examination shows + oculomotor tests with saccades, (-) VBI B but pain with cervical AROM extension. She was (-) for BPPV B in hallpike and roll test. Balance was normal. S/S are not consistent with BPPV (but may have been BPPV that resolved) however her symptoms seem more consistent with cervicogenic dizziness. She was educated on getting a new order as she would benefit from PT 2x/wk for 4wks to address impairments, implement HEP and optimize functional mobility for her neck instead. Chart closed after 30 days. Electronically signed by: Bere Polo PT Please sign and return to therapist. Thank you for your referral.
== END 2025-04-02 08:21 | disposition home or self-care (01) ==
LOC: HO.PTCHIC 08:58
PROVIDERS: PCP Internal Medicine; Visit Provider Internal Medicine
DX: H81.10 Benign paroxysmal vertigo, unspecified ear (principal)
CPT/HCPCS: 97110; 97161

== ENCOUNTER 2025-03-08 13:38 | Outpatient (REF) | payer OTHER, SELFPAY ==
[2025-03-08 16:16] LABS: Appearance Urine Cloudy; Color Urine Yellow; Glucose Urine UA Negative (Negative); Leukocyte Esterase Urine Negative (Negative); Nitrite Urine Negative (Negative); PH 5.5 (5.0-9.0); Specific Gravity - Urine 1.015 (1.005-1.025); Urine Blood Negative (Negative); Urine Ketones Negative (Negative); Urine Protein Negative (Neg-Trace)
[2025-03-08 16:22] LABS: Bacteria Urine None Seen (None Seen); Hyaline Casts Urine 0-2 /LPF (0-2); RBC Urine 0-2 /HPF (0-2); Squamous Epithelial Cell Urine 0-2 /HPF (0-2); WBC Urine 0-5 /HPF (0-5)
== END 2025-03-08 13:39 | disposition home or self-care (01) ==
LOC: HO.HMGCLDS 13:38
PROVIDERS: PCP Internal Medicine; Visit Provider Internal Medicine
DX: R30.0 Dysuria (principal)
CPT/HCPCS: 81001; 87086

== ENCOUNTER 2025-03-27 15:14 | Outpatient (AMB) | payer OTHER, SELFPAY ==
--- NOTE | 2025-03-27 15:36 | AM.OFFWIN_ITS ---
Intake Vital Signs 03/27/25 15:37 Height 5 ft 3 in Weight 115 lb 8 oz BMI 20.5 BP 108/60 Blood Pressure Location Rt brachial Position Sitting Pulse 90 Pulse Source Pulse Oximeter Temp 98.9 F Temp Source Oral Pulse Oximetry (%) 97 Oxygen Delivery Method Room Air Intake Visit Reasons: EP Throat, congestion, headache Intake Note: Pt presents to the office today for c/o congestion, sinus pressure, headache and sore throat x3 days. Patient Tobacco Use Status: Never used Tobacco Allergies No Known Allergies Allergy (Verified 03/27/25 15:37) HPI HPI Comments History of Present Illness Details History - The patient is a 29-year-old female pr esenting with symptoms of a sore throat, nasal congestion, and ear pain x3 days. - The sore throat began on Tuesday, with difficulty swallowing noted the following morning. - Headaches and significant nasal conges tion developed, with the latter being most severe today. - The patient experienced night sweats l ast night but has not recorded any fever. - No cough or shortness of breath was re ported. - The patient recently [place] from a [place] family, with symptom onset occurring shortly after arrival. - No history of asthma, COPD, or smoking was reported. Physical Exam General: Cooperative, healthy appearing, comfortable and no acute distress Orientation/consciousness: Patient oriented x3 Limitations: No limitations Head: Normal to inspection Ears: Hearing grossly normal bilaterally, external ears normal. bilat TM's with purulent effusions and erythema, loss of bony landmarks Nose: Normal external nose present, Normal nares present and Nasal discharge present Face and sinus: Normal facial exam and Yes sinuses nontender Mouth: Normal oral and palatal mucosa present and moist mucous membranes Throat: Yes tonsils normal, Yes uvula midline. Posterior oropharynx erythema, no exudates Eyes: Appearance normal, both eyes and all related structures Neck: Normal visual inspection Respiratory: Normal respiratory effort, able to speak in complete sentences, No active coughing, no respiratory distress, not tachypneic, no tripod positioning and no use of accessory muscles Skin: No rashes or lesions noted Neuro: Patient oriented x3 Extremities: Normal to inspection and Yes no clubbing, cyanosis or edema PFSH Medical History Depo-Provera contraceptive status Encounter for screening Abnormal Pap smear of cervix Annual physical exam Hypothyroid Family History Father No problems noted. 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 Alcohol intake: current Alcohol intake frequency: does not drink Patient Tobacco Use Status: Never used Tobacco e-Cigarette/Vaping Use: Never Used service: No Current occupational status: employed Sexual orientation: Straight/Heterosexual Gender identity: Female Cognitive needs: No Hearing needs: No Vision needs: Yes Review of Systems Const All systems reviewed & are unremarkable except as noted in HPI and below Physical Exam Vital Signs: Last Vital Signs Temp 98.9 F 03/27/25 15:37 Pulse 90 03/27/25 15:37 BP 108/60 03/27/25 15:37 Pulse Ox 97 03/27/25 15:37 Oxygen Delivery Method Room Air 03/27/25 15:37 BMI result Body Mass Index 20.5 Results AMB Rapid Strep AMB Rapid Strep Negative Last Edit by Gaviota Chowdhury CMA on 03/27/25 15:47 Results Reviewed Results Reviewed: Laboratory Last Values Strep Scn Rapid Clinic Negative 03/27/25 15:44 Assessment & Plan Assessment & Plan (1) Bilateral otitis media with effusion: Code(s): H65.93 - Unspecified nonsuppurative otitis media, bilateral Plan: Plan - Prescribe amoxicillin for five days to treat the ear infection. - Recommend using Flonase twice daily for two days to alleviate nasal congestion. - Suggest adding an allergy pill such as Alexa D to help with decongestion. - Advise symptomatic care and consider using Benadryl at night for additional relief. Patient was informed and verbally consented to the use of an ambient scribe for clinic note documentation during this visit Orders: Orders AMB Rapid Strep Screen Today Z13.9 - Encounter for screening, unspecified Medications: New amoxicillin 875 mg PO Q12H 10 tabs 0RF Coding Level of Care Code Est Pt Level 3 (07719) Diagnoses Bilateral otitis media with effusion H65.93
[2025-03-27 15:37] VITALS: BP 108/60; PULSE 90; TEMP 37.2; O2SAT 97; BMI 20.5
--- OUTSIDE RECORDS SUMMARY | 2025-03-27 17:35 | XMS_ITS | Data Portability ---
Author Organization [facility], [address] Address [address] [place] [address] Assessment No assessment recorded. Plan of Treatment Reminders Order Date Submit Date Provider Last Modified By Organization Details Last Modified Time Details Appointments None recorded. Lab urinalysis, dipstick 2022 023 [place] [id number] _bharath holm, [address] [place] [address], [place], [address], 15:39:29 test, urine 2022 023 [place] [address] [facility], [address] [place] [address], [address], 15:39:29 culture, urine 2022 023 [place] [facility], [address] [place] [address], [place], [address], 06:07:45 Referral None recorded. Procedures None recorded. Surgeries None recorded. Imaging None recorded. Medication Orders ondansetron 4 mg disintegrat ing tablet 2022 023 [place] [id number], [address] [facility] [place], [address], 15:39:32 Patient TargetsNo targets recorded. Patient Instructions Encounter Date Encounter Id Patient Instructions Last Modified By Organization Details Last Modified Time 03/10/2023 [id number] nausea and vomiting: care instructions [place] [id number] Not available 03/10/2023 15:39:29 Try small amount [...] much worse, you should seek treatment immediately. [email or web address] Not available 03/10/2023 14:53:05 Reason for Referral None Reported. Results Created Date Observation Date Name Description Value Unit Range Abnormal Flag Note LastModifiedBy Organization Detail LastModifiedTime 03/10/2003/11/2023 URINE CULTU REFERNY NE urine culture, routine FINAL REPORT Not Available [facility] ([facility]) [address] [place], [address], 03/12/2023 06:07:45 03/10/20 23 03/11/2023 URINE CULTU REFERNY NE result 1 NO GROWTH Not Available [facility] ([facility]) [address] [facility], [place], [address], 03/12/2023 06:07:45 03/10/20 23 03/10/2023 pregn chadd test, urine Unknown Analyte Normal = Negati ve Not Available jens [address], [address], 03/10/2023 14:56:41 03/10/20 23 03/10/2023 pregn chadd test, urine Unknown Analyte negati ve Not Available jens [address], [address], 03/10/2023 14:56:41 03/10/20 23 03/10/2023 urina lysis , dipst ick Unknown Analyte Normal = light yellow Not Available [address], [address], 03/10/2023 14:56:35 03/10/20 23 03/10/2023 urina lysis , dipst ick Unknown Analyte Normal = clear Not Available jens wood [address], [place], [address], 03/10/2023 14:56:35 03/10/20 23 03/10/2023 urina lysis , dipst ick Unknown Analyte Yellow Not Available [facility] [address], [place], [address], 03/10/2023 14:56:35 03/10/20 23 03/10/2023 urina lysis , dipst ick Unknown Analyte Cloudy Not Available [facility] [address], [place], [address], 03/10/2023 14:56:35 03/10/20 23 03/10/2023 urina lysis , dipst ick Unknown Analyte Normal = negati ve Not Available jens wood [address], [place], [address], 03/10/2023 14:56:35 03/10/20 23 03/10/2023 urina lysis , dipst ick Unknown Analyte Normal = Negati ve Not Available jens wood [address], [place], [address], 03/10/2023 14:56:35 03/10/20 23 03/10/2023 urina lysis , dipst ick Unknown Analyte Normal = Negati ve Not Available jens wood [address], [place], [address], 03/10/2023 14:56:35 03/10/20 23 03/10/2023 urina lysis , dipst ick Unknown Analyte Negati ve Not Available jens wood [address], [place], [address], 03/10/2023 14:56:35 03/10/2003/10/2023 urina lysis , dipst ick Unknown Analyte Negati ve Not Available jens wood [address], [place], [address], 03/10/2023 14:56:35 03/10/20 23 03/10/2023 urina lysis , dipst ick Unknown Analyte Negati ve Not Available jens wood [address], [place], [address], 03/10/2023 14:56:35 03/10/20 23 03/10/2023 urina lysis , dipst ick Unknown Analyte Normal = 1.010, 1.015, 1.020 Not Available jens wood [address], [place], [address], 03/10/2023 14:56:35 03/10/20 23 03/10/2023 urina lysis , dipst ick Unknown Analyte 1.020 Not Available bharath [address], [place], [address], 03/10/2023 14:56:35 03/10/20 23 03/10/2023 urina lysis , dipst ick Unknown Analyte Normal = Negati ve Not Available jens wood [address], [place], [address], 03/10/2023 14:56:35 03/10/20 23 03/10/2023 urina lysis , dipst ick Unknown Analyte Negati ve Not Available jens wood [address], [place], [address], 03/10/2023 14:56:35 03/10/20 23 03/10/2023 urina lysis , dipst ick Unknown Analyte Normal = 6.5, 7.0, 7.5, 8.0 Not Available jens wood [address], [place], [address], 03/10/2023 14:56:35 03/10/20 23 03/10/2023 urina lysis , dipst ick Unknown Analyte 8.5 Not Available [address], [place], [address], 03/10/2023 14:56:35 03/10/20 23 03/10/2023 urina lysis , dipst ick Unknown Analyte Normal = Negati ve Not Available jens [address], [place], [address], 03/10/2023 14:56:35 03/10/20 23 03/10/2023 urina lysis , dipst ick Unknown Analyte Negati ve Not Available [facility] [address], [place], [address], 03/10/2023 14:56:35 03/10/20 23 03/10/2023 urina lysis , dipst ick Unknown Analyte Normal = 0.2, 1.0 Not Available jens [address], [place], [address], 03/10/2023 14:56:35 03/10/20 23 03/10/2023 urina lysis , dipst ick Unknown Analyte 0.2 E.U./d L Not Available [facility] [address], [place], [address], 03/10/2023 14:56:35 03/10/20 23 03/10/2023 urina lysis , dipst ick Unknown Analyte Normal = Negati ve Not Available [address], [place], [address], 03/10/2023 14:56:35 03/10/20 23 03/10/2023 urina lysis , dipst ick Unknown Analyte Negati ve Not Available [address] [facility] [address] [place], [address], 03/10/2023 14:56:35 03/10/2003/10/2023 urina lysis , dipst ick Unknown Analyte Normal = Negati ve Not Available [address] [place] [address] [place], [address], 03/10/2023 14:56:35 03/10/20 23 03/10/2023 urina lysis , dipst ick Unknown Analyte Trace Not Available [facility] [address] [place], [address], 03/10/2023 14:56:35 Result Notes None recorded. Problems Name Problem SNOMED Code Status Onset Date Resolution Date Notes Provider Name and Address Organization Details Recorded Time Hypothyroidism 55324266 Active 2022 AINSLEY Rankin - [facility] [...] height Body mass index (BMI) Body weight Respiratory rate Oxygen saturation Oxygen saturation in Arterial blood by Pulse oximetry Heart rate Body temperature Systolic blood pressure Diastolic blood pressure Provider Name and Address Organization Details Last Updated DateTime 160.02 cm 21.6 kg/m2 46097.2 7 g 20 /min 98 % 98 % 82 /min 98.3 [degF] 110 mm[Hg] 70 mm[Hg] MYNOR VILLASENOR PA - [facility] 14:57:30 Social History Question Answer Notes LastModified by [employer] Details LastModified Time Tobacco Smoking Status Never Smoker MYNOR JACKLYN chang PA - [facility] 03/10/2023 14:56:08 Have You Recently Traveled Abroad? No Information not available 03/10/2023 Sex: Unknown Functional Status Question Answer Note LastModified by [employer] Details LastModified Time Do you use any illicit or recreational drugs? No [email or web address] Information not available 03/10/2023 Do you or have you ever used any other forms of tobacco or nicotine? No [email or web address] Information not available 03/10/2023 What is your level of alcohol consumption? Occasional [email or web address] Information not available 03/10/2023 Mental Status None recorded. Family History Relationship Description Onset Age of this Age Resolved Age Notes LastModified by Organization Details LastModified Time Father No current problems or disability [email or web address] Not available 03/10 14:55:40 Mother No current problems or disability [email or web address] Not available 03/10 14:55:40 Medical History No medical history recorded. Gynecological History Statement/Question Response Date of LMP 03/04/2023 Is there any chance of ? No Obstetrics History GPAL:G 0 P 0 0 0 0 Past Encounters Encounter ID Performer Location Encounter Start Date Encounter Closed Date Diagnosis/Indication Diagnosis SNOMED-CT Code Diagnosis ICD10 Code Diagnosis Note [id number] [facility] _[facility] [address] [address] 08/17/2022 18:19:18 08/17/2022 20:01:55 [id number] Alex Taylor MD _[address] [address] 03/10/2023 13:00:53 03/10/2023 15:46:16 Nausea and vomiting 63322289 R11.2 Do not continue with Laxatives. Sometimes over use of laxatives can have the opposite effect and slow down the gastrointe stinal system requiring higher doses of laxatives for the same effectsDri nk plenty of fluids and take nausea medication ,There was no Xray available today but if continues an Xray woud be recommende d Abdominal pain 55262236 R10.9 If pain continues or worsens and [...] Simmons Member ID Guarantor Name 03/10/2023 1 [facility] [place] Caro Downey [id number] Caro Downey Notes Date Note Type Note [...] 3 days ago. Alex Taylor MD [address] [facility] [place], [address], [place] - [facility] 03/13/2023 12:59:51 OBGyn Episode No OBEpisode recorded.
== END 2025-03-27 15:58 | disposition home or self-care (01) ==
PROVIDERS: PCP Internal Medicine; Visit Provider Physician Assistant
DX: Z13.9 Encounter for screening, unspecified (principal); H65.93 Unspecified nonsuppurative otitis media, bilateral

== ENCOUNTER → 2025-03-27 15:14 | Outpatient (BNVA) | payer OTHER, SELFPAY | PROVIDERS: PCP Internal Medicine; Visit Provider Physician Assistant | DX: H65.93 Unspecified nonsuppurative otitis media, bilateral (principal) | CPT/HCPCS: 87880; 99212 ==

== ENCOUNTER 2025-04-04 12:34 | Outpatient (AMB) | payer OTHER, SELFPAY ==
[2025-04-04 12:39] VITALS: BP 100/66; PULSE 86; TEMP 36.8; O2SAT 98; BMI 20.5
--- NOTE | 2025-04-04 12:39 | MHC.OFFWIV ---
Intake Vital Signs 04/04/25 12:39 Height 5 ft 3 in Weight 116 lb BMI 20.5 BP 100/66 Blood Pressure Location Lt brachial Position Sitting Pulse 86 Pulse Source Pulse Oximeter Temp 98.3 F Temp Source Oral Pulse Oximetry (%) 98 Intake Visit Reasons: EP Dizzy, almost fainted Patient Tobacco Use Status: Never used Tobacco Allergies No Known Allergies Allergy (Verified 04/04/25 12:49) Medication List - Last Reconciled 04/04/25 by Doris Alford, RAYNE levothyroxine 100 mcg PO DAILY meclizine 25 mg PO BID PRN sertraline 25 mg PO QAM trazodone mg PO BEDTIME Do you need a note to return to daycare/school/sports/work: Yes HPI HPI Comments History of Present Illness Details 29 y/o Female patient who presents to the walk in clinic with c/o Feeling Dizzy. Reports that she was walking outside when she suddenly felt nauseous, dizzy and almost passing out. Denies vomiting, SOB, CP, fevers or chills. She had not eaten any food since morning or hydrated well. She felt better after eating lunch with Juice. She was recently treated for B/L Otitis media with 10 day course of Abx - infection resolved. [facility] Medical History Depo-Provera contraceptive status Encounter for screening Abnormal Pap smear of cervix Annual physical exam Hypothyroid Family History Father No problems noted. 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 Alcohol intake: current Alcohol intake frequency: does not drink Patient Tobacco Use Status: Never used Tobacco e-Cigarette/Vaping Use: Never Used service: No Current occupational status: employed Sexual orientation: Straight/Heterosexual Gender identity: Female Cognitive needs: No Hearing needs: No Vision needs: Yes Review of Systems Const All systems reviewed & are unremarkable except as noted in HPI and below Physical Exam Vital Signs: Last Vital Signs Temp 98.3 F 04/04/25 12:39 Pulse 86 04/04/25 12:39 BP 100/66 04/04/25 12:39 Pulse Ox 98 04/04/25 12:39 BMI result Body Mass Index 20.5 Const General: no acute distress Nutritional Appearance: thin Orientation/consciousness: patient oriented x3 HEENT Head: Yes normocephalic Ears: external ears normal and TM's normal bilaterally General nose exam: Normal nasal mucous membranes and turbinates present and No nasal discharge present Face and sinus: Yes sinuses nontender Mouth: moist mucous membranes Throat: Yes uvula midline Resp Effort & Inspection: normal respiratory effort and able to speak in complete sentences Auscultation: clear to auscultation bilaterally Cardio Heart sounds: S1 normal heart sound present and S2 normal heart sound present Neuro General: patient oriented x3 Assessment & Plan Assessment & Plan (1) BPV (benign positional vertigo): Code(s): H81.10 - Benign paroxysmal vertigo, unspecified ear Qualifiers: Laterality: bilateral Qualified Code(s): H81.13 - Benign paroxysmal vertigo, bilateral Plan: Ordered Meclizine BID. Advised to test for - could be positive. Sexually active with no protection. Medications: New meclizine 25 mg PO BID PRN 30 tabs 0RF dizziness H81.13 - Benign paroxysmal vertigo, bilateral Discontinued meclizine Discontinued Reason: Patient Completed Course 25 mg PO BID PRN 20 tabs 0RF dizziness fluticasone propionate 50 mcg/actuation administer into each nostril Discontinued Reason: Patient Completed Course 1 spray intranasal Q12H 16 grams 0RF Coding Level of Care Code Est Pt Level 4 (13234) Diagnoses Benign paroxysmal positional vertigo due to bilateral vestibular disorder H81.13 Laterality: bilateral Time Spent (min) 20
--- OUTSIDE RECORDS SUMMARY | 2025-04-04 13:37 | XMS_ITS | Data Portability ---
Author Organization [facility], [address] Address [address] [place] [address] Assessment No assessment recorded. Plan of Treatment Reminders Order Date Submit Date Provider Last Modified By Organization Details Last Modified Time Details Appointments None recorded. Lab urinalysis, dipstick 2022 023 [place] [address] _bharath holm, [address] [place] [address], [place], [address], 15:39:29 test, urine 2022 023 [place] [address] [facility], [address] [place] [address], [address], 15:39:29 culture, urine 2022 023 [facility], [address] [place] [address], [place], [address], 06:07:45 Referral None recorded. Procedures None recorded. Surgeries None recorded. Imaging None recorded. Medication Orders ondansetron 4 mg disintegrat ing tablet 2022 023 [id number], [address] [facility] [place], [address], 15:39:32 Patient TargetsNo targets recorded. Patient Instructions Encounter Date Encounter Id Patient Instructions Last Modified By Organization Details Last Modified Time 03/10/2023 [id number] nausea and vomiting: care instructions [place] [id number] Not available 03/10/2023 15:39:29 Try small amount [...] much worse, you should seek treatment immediately. Not available 03/10/2023 14:53:05 Reason for Referral None Reported. Results Created Date Observation Date Name Description Value Unit Range Abnormal Flag Note LastModifiedBy Organization Detail LastModifiedTime 03/10/2003/11/2023 URINE CULTU REFERNY NE urine culture, routine FINAL REPORT Not Available [facility] ([facility]) [address] [place], [address], 03/12/2023 06:07:45 03/10/20 23 03/11/2023 URINE CULTU REFERNY NE result 1 NO GROWTH Not Available [facility] ([facility]) [address] [facility], [place], [address], 03/12/2023 06:07:45 03/10/20 23 03/10/2023 pregn chadd test, urine Unknown Analyte Normal = Negati ve Not Available jens [address], [address], 03/10/2023 14:56:41 03/10/20 23 03/10/2023 pregn chadd test, urine Unknown Analyte negati ve Not Available jens [address], [address], 03/10/2023 14:56:41 03/10/20 23 03/10/2023 urina lysis , dipst ick Unknown Analyte Normal = light yellow Not Available ginger[address], [address], 03/10/2023 14:56:35 03/10/20 23 03/10/2023 urina lysis , dipst ick Unknown Analyte Normal = clear Not Available jens wood [address], [place], [address], 03/10/2023 14:56:35 03/10/20 23 03/10/2023 urina lysis , dipst ick Unknown Analyte Yellow Not Available [facility] [address], [place], [address], 03/10/2023 14:56:35 03/10/20 23 03/10/2023 urina lysis , dipst ick Unknown Analyte Cloudy Not Available [facility] [address], [place], [address], 03/10/2023 14:56:35 03/10/20 23 03/10/2023 urina lysis , dipst ick Unknown Analyte Normal = negati ve Not Available jens wood [address], [place], [address], 03/10/2023 14:56:35 03/10/20 23 03/10/2023 urina lysis , dipst ick Unknown Analyte Normal = Negati ve Not Available jens wood [address], [place], [address], 03/10/2023 14:56:35 03/10/20 23 03/10/2023 urina lysis , dipst ick Unknown Analyte Normal = Negati ve Not Available jens wood [address], [place], [address], 03/10/2023 14:56:35 03/10/20 23 03/10/2023 urina lysis , dipst ick Unknown Analyte Negati ve Not Available jens wood [address], [place], [address], 03/10/2023 14:56:35 03/10/2003/10/2023 urina lysis , dipst ick Unknown Analyte Negati ve Not Available jens wood [address], [place], [address], 03/10/2023 14:56:35 03/10/20 23 03/10/2023 urina lysis , dipst ick Unknown Analyte Negati ve Not Available jens wood [address], [place], [address], 03/10/2023 14:56:35 03/10/20 23 03/10/2023 urina lysis , dipst ick Unknown Analyte Normal = 1.010, 1.015, 1.020 Not Available jens wood [address], [place], [address], 03/10/2023 14:56:35 03/10/20 23 03/10/2023 urina lysis , dipst ick Unknown Analyte 1.020 Not Available bharath [address], [place], [address], 03/10/2023 14:56:35 03/10/20 23 03/10/2023 urina lysis , dipst ick Unknown Analyte Normal = Negati ve Not Available jens wood [address], [place], [address], 03/10/2023 14:56:35 03/10/20 23 03/10/2023 urina lysis , dipst ick Unknown Analyte Negati ve Not Available jens wood [address], [place], [address], 03/10/2023 14:56:35 03/10/20 23 03/10/2023 urina lysis , dipst ick Unknown Analyte Normal = 6.5, 7.0, 7.5, 8.0 Not Available jens wood [address], [place], [address], 03/10/2023 14:56:35 03/10/20 23 03/10/2023 urina lysis , dipst ick Unknown Analyte 8.5 Not Available [address], [place], [address], 03/10/2023 14:56:35 03/10/20 23 03/10/2023 urina lysis , dipst ick Unknown Analyte Normal = Negati ve Not Available jens [address], [place], [address], 03/10/2023 14:56:35 03/10/20 23 03/10/2023 urina lysis , dipst ick Unknown Analyte Negati ve Not Available [facility] [address], [place], [address], 03/10/2023 14:56:35 03/10/20 23 03/10/2023 urina lysis , dipst ick Unknown Analyte Normal = 0.2, 1.0 Not Available jens [address], [place], [address], 03/10/2023 14:56:35 03/10/20 23 03/10/2023 urina lysis , dipst ick Unknown Analyte 0.2 E.U./d L Not Available [facility] [address], [place], [address], 03/10/2023 14:56:35 03/10/20 23 03/10/2023 urina lysis , dipst ick Unknown Analyte Normal = Negati ve Not Available ginger[address], [place], [address], 03/10/2023 14:56:35 03/10/20 23 03/10/2023 urina lysis , dipst ick Unknown Analyte Negati ve Not Available [facility] [address] [facility] [place], [address], 03/10/2023 14:56:35 03/10/2003/10/2023 urina lysis , dipst ick Unknown Analyte Normal = Negati ve Not Available [address] [place] [address] [facility], [address], 03/10/2023 14:56:35 03/10/20 23 03/10/2023 urina lysis , dipst ick Unknown Analyte Trace Not Available [facility] [address] [place], [address], 03/10/2023 14:56:35 Result Notes None recorded. Problems Name Problem SNOMED Code Status Onset Date Resolution Date Notes Provider Name and Address Organization Details Recorded Time Hypothyroidism 85947455 Active 2022 AINSLEY Rankin - [facility] [...] Last Updated DateTime 160.02 cm 21.6 kg/m2 55593.2 7 g 20 /min 98 % 98 % 82 /min 98.3 [degF] 110 mm[Hg] 70 mm[Hg] MYNOR VILLASENOR PA - [facility] 14:57:30 Social History Question Answer Notes LastModified by Oversi Details LastModified Time Tobacco Smoking Status Never Smoker MYNOR JACKLYN chang PA - [facility] 03/10/2023 14:56:08 Have You Recently Traveled Abroad? No [email or web address] Information not available 03/10/2023 Sex: Unknown Functional Status Question Answer Note LastModified by Oversi Details LastModified Time Do you use any illicit or recreational drugs? No [email or web address] Information not available 03/10/2023 Do you or have you ever used any other forms of tobacco or nicotine? No [email or web address] Information not available 03/10/2023 What is your level of alcohol consumption? Occasional [email or web address] Information not available 03/10/2023 Mental Status None recorded. Family History Relationship Description Onset Age of this Age Resolved Age Notes LastModified by Organization Details LastModified Time Father No current problems or disability [email or web address] Not available 03/10 14:55:40 Mother No current problems or disability [email or web address] Not available 03/10 14:55:40 Medical History No medical history recorded. Gynecological History Statement/Question Response Date of LMP 03/04/2023 Is there any chance of ? No Obstetrics History GPAL:G 0 P 0 0 0 0 Past Encounters Encounter ID Performer Location Encounter Start Date Encounter Closed Date Diagnosis/Indication Diagnosis SNOMED-CT Code Diagnosis ICD10 Code Diagnosis Note [id number] [facility] _[facility] [address] [address] 08/17/2022 18:19:18 08/17/2022 20:01:55 [id number] Alex Taylor MD _[address] [address] 03/10/2023 13:00:53 03/10/2023 15:46:16 Nausea and vomiting 62221669 R11.2 Do not continue with Laxatives. Sometimes over use of laxatives can have the opposite effect and slow down the gastrointe stinal system requiring higher doses of laxatives for the same effectsDri nk plenty of fluids and take nausea medication ,There was no Xray available today but if continues an Xray woud be recommende d Abdominal pain 55467734 R10.9 If pain continues or worsens and [...] Simmons Member ID Guarantor Name 03/10/2023 1 [facility] [place] [facility] () Caro Downey [id number] Caro Downey Notes Date Note Type Note [...] 3 days ago. Alex Taylor MD [address] [facility], [address], [place] - [facility] 03/13/2023 12:59:51 OBGyn Episode No OBEpisode recorded.
== END 2025-04-04 13:05 | disposition home or self-care (01) ==
PROVIDERS: PCP Internal Medicine; Visit Provider Nurse Practitioner Family
DX: H81.13 Benign paroxysmal vertigo, bilateral (principal)

== ENCOUNTER → 2025-04-04 12:34 | Outpatient (BNVA) | payer OTHER, SELFPAY | PROVIDERS: PCP Internal Medicine; Visit Provider Nurse Practitioner Family | DX: H81.13 Benign paroxysmal vertigo, bilateral (principal) | CPT/HCPCS: 99212 ==

== ENCOUNTER 2025-04-30 15:00 | Outpatient (RCR) | payer OTHER, SELFPAY ==
--- NOTE | 2025-03-12 13:50 | MHC.PT.EP ---
[facility] [place] Office [place] Office [place] Office [address] Kody Bishop [address] [phone] F: [phone] F: [phone] F: [phone] F: [phone] Physical Therapy Plan of Care Date of Evaluation: 03/12/25 Date of Surgery: Diagnosis: This is a 29 yo female presenting to skilled PT with a script for cervicalgia. Assessment: This is a 29 yo female presenting to skilled PT with a script for cervicalgia. Patient was recently here for a vestibular evaluation. Evaluation subjective portion reads: Patient has had ongoing symptoms since Sep 2024 after a viral infection and multiple ear infections. Her symptoms vary from once a week to a couple times a week however are better since starting. The last time she had symptoms was one week ago. Her symptoms last about an hour when she gets them. She takes meclizine which does not appear to help. Her symptoms are described as dizzy, like I'm moving , nauseous. She cannot describe anything that triggers them and they can occur at rest. She has not had any imaging. She is also complaining of neck pain today at [facility]. After evaluation it was deemed that she did not have vertigo and it was recommended she trial PT for neck pain instead. She is here today reporting ongoing neck pain for a couple of months without injury noted. Denies past history of head injuries. She is experiencing daily HAs at the frontal lobe and pressure located posterior head. Denies auras, weakness in extremities. Pain symptoms increase with cervical extension only and this pain is located throughout the base of the head/mid line of the cranium. She has tried massage, ibuprofen but no other interventions. She is dizzy all the time; describes this has lightheadedness. She reports L ear (but can be B), pain is like a nerve , achy. She sees an ENT some time in March. Her last ear infection was in October. Assessment reveals pain that ranges from up to a 8/10 at the worst. Patient demos WFL cervical ROM but tightness throughout upper back with shoulder ROM, strength of B shoulder's and scaps, TTP at UT's and upper c-spine and impaired posture with forward head and rounded shoulders. Based on functional limitations, impaired QOL and pain tolerance patient is a good candidate for skilled PT 2x/wk for 4wks. Frequency and Duration: The patient will be seen 2x/wk for 4wks Short Term Goals: (in 2 wks) I in HEP Improve cervical ROM by at least 25% Demo proper cervical positioning with progression of UB strengthening exercises without cues from PT Report 50% less occurrence of PONCE's Wire Steward Goals: (in 4 wks) Report 50% improvement in QOL Improve dizziness by at least 75% Tolerate working throughout the day without waking from pain Improve NDI by 10 points Improve pain to no more than 2/10 at the worst Treatment Plan: Modalities to reduce pain, spasms and effusion. Manual therapy to restore motion and function. Therapeutic exercise to improve strength and flexibility. Neuromuscular re-education for posture and balance. Therapeutic activities to return to functional activities of daily living. Electronically signed by: Bere Polo PT Please sign and return to therapist. Thank you for your referral.
--- NOTE | 2025-05-09 13:42 | MHC.PT.DC ---
[facility] [place] Office [place] Office [place] Office [address] Kody Bishop [address] [phone] F: [phone] F: [phone] F: [phone] F: [phone] Physical Therapy Discharge Report Diagnosis: This is a 29 yo female presenting to skilled PT with a script for cervicalgia. Date of Surgery: Date of Evaluation: 03/12/25 Date of Discharge: 05/09/25 Treatments to Date: 7 Cancellations to Date: 0 No Shows to Date: 0 Discharge Status: Achieved Goals Improved Function Independent with HEP Patient Elected to Stop Discharge Summary: Pt came to 7 sessions of PT. At her last session she was pain free, did not complain of PONCE's, reported less pressure and demonstrated good cervical ROM. Patient has an HEP to continue on her own. DC as she no showed to her last remaining 2 visits. Electronically signed by: Bere Polo PT Please sign and return to therapist. Thank you for your referral.
== END 2025-05-09 13:41 | disposition home or self-care (01) ==
LOC: HO.PTCHIC 15:00
PROVIDERS: PCP Internal Medicine; Visit Provider Internal Medicine
DX: M54.2 Cervicalgia (principal)
CPT/HCPCS: 97110; 97140; 97161